=== PATIENT | male | born 1990 | race Caucasian/White ===

== ENCOUNTER 2017-07-21 08:16 | Emergency (ER) | payer OTHER ==
[2017-07-21] MEDS ORDERED: FENTANYL CITR 100 MCG/2 ML ONE (09:49)
[2017-07-21] MEDS ORDERED: PROMETHAZINE 25 MG/ML VIAL ONE (09:49)
[2017-07-21 10:09] LABS: Absolute Lymphocytes (CBC) 1.3 K/uL (0.7-4.9); Absolute Monocytes 0.5 K/uL (0.1-1.3); Absolute Neutrophil 4.3 K/uL (1.8-8.0); Basophils % 0.3 % (0-1.3); Eosinophils % 1.6 % (0-4.4); Hematocrit 47.5 % (39.6-49.0); Lymphocytes % 20.7 % (15.3-44.8); MCH 27.4 pg (27.0-35.0); MCV 84.2 fL (80-100); MPV 9.3 fL (7.6-11.3); Monocytes % 8.3 % (3.3-12.3); RBC Red Blood Cell Count 5.64 M/uL (4.33-5.43)
--- NOTE | 2017-07-21 10:45 | RAD REPORT ---
EXAM DESCRIPTION: CTAbdomen Pelvis W Contrast - 07/21/2017 10:32 am CLINICAL HISTORY: Abdominal pain. COMPARISON: None. TECHNIQUE: Biphasic CT imaging of the abdomen and pelvis was performed with 100 ml non-ionic IV cont rast. All CT scans are performed using dose optimization technique as appropriate and may include automated exposure control or mA/KV adjustment according to patient size. FINDINGS: The lung bases are clear. The liver, spleen, pancreas, adrenal glands are within normal limits. 4 mm stone (615 HU) is present in the proximal left ureter resulting in mild left hydronephrosis. Additional calculus is present inf erior calyx left kidney measuring 3 mm. Small calculus is present mid-pole right renal calyx measurin g 2 mm. No right-sided hydronephrosis. No bowel obstruction, free air, free fluid or abscess. The appendix is normal. No evidence of signi ficant lymphadenopathy. No suspicious bony findings. IMPRESSION: 4 mm calculus (615 HU) proximal left ureter resulting in mild left hydronephrosis. Additional bilateral nephrolithiasis as detailed.
[2017-07-21] MEDS ORDERED: KETOROLAC 30 MG/ML INJ ONE (11:11)
[2017-07-21 11:13] LABS: Potassium 4.3 mEq/L (3.6-5.0)
[2017-07-21 11:19] LABS: Albumin 4.6 g/dL (3.2-5.5); Bilirubin Direct 0.1 mg/dL (0-0.2); Bilirubin Total 0.7 mg/dL (0.3-1.2); Protein, Total 7.7 g/dL (6.0-8.3)
--- NOTE | 2017-07-21 11:25 | ER ---
Nurse's Notes [facility] Name: Paul Patel Age: 26 yrs Sex: Male : 1990 Arrival Date: 07/21/2017 Time: 08:19 Bed 16 Private MD: None, None Diagnosis: Hydronephrosis with renal and ureteral calculous obstruction Presentation: 07/21 08:40 Presenting complaint: Patient states: pain in mid abd, radiates to LLQ to left groin, iw sharp, constant X 2 days, c/o nausea, denies vomiting or diarrhea. Transition of care: patient was not received from another setting of care. Onset of symptoms was July 19, 2017. Initial Sepsis Screen: Does the patient meet any 2 criteria? No. Patient's initial sepsis screen is negative. Does the patient have a suspected source of infection? No. Patient's initial sepsis screen is negative. Care prior to arrival: None. 08:40 Method Of Arrival: Ambulatory iw 08:40 Acuity: LOWELL 3 iw Triage Assessment: 10:28 General: Appears in no apparent distress. comfortable, Behavior is calm, cooperative. em Pain: Complains of pain in left lower quadrant Pain currently is 10 out of 10 on a pain scale. Quality of pain is described as sharp. GI: Abdomen is flat. Historical: - Allergies: 08:41 Morphine; aggressivness; iw - Home Meds: 08:41 None [Active]; iw - PMHx: 08:41 Back pain; Chronic pain; Hypertension; scoliosis; iw - PSHx: 08:41 Cholecystectomy; iw - Immunization history:: Adult Immunizations not up to date. - Social history:: Smoking status: Patient uses tobacco products, chewing tobacco. Screenin:27 Abuse screen: Denies threats or abuse. Nutritional screening: No deficits noted. em Tuberculosis screening: No symptoms or risk factors identified. Fall Risk None identified. Assessment: 09:30 General: Appears in no apparent distress. uncomfortable, Behavior is calm, cooperative. em Pain: Complains of pain in left lower quadrant. Neuro: Level of Consciousness is awake, alert, obeys commands, Oriented to person, place, time, situation, Appropriate for age. Cardiovascular: Capillary refill < 3 seconds Patient's skin is warm and dry. Respiratory: Airway is patent Respiratory effort is even, unlabored, Respiratory pattern is regular, symmetrical. GI: Abdomen is flat, Bowel sounds present X 4 quads. Abd is soft X 4 quads Abdomen is tender to palpation in left lower quadrant Reports nausea, Patient currently denies diarrhea, vomiting. : No signs and/or symptoms were reported regarding the genitourinary system. EENT: No signs and/or symptoms were reported regarding the EENT system. Derm: Skin is intact, Skin is pink, warm \T\ dry. Musculoskeletal: Range of motion: intact in all extremities. 09:45 Reassessment: Patient appears in no apparent distress at this time. I agree with above iw assessment by Chavez Krueger LVN. 10:25 Reassessment: Patient appears in no apparent distress at this time. Patient and/or em family updated on plan of care and expected duration. Pain level reassessed. Patient is alert, oriented x 3, equal unlabored respirations, skin warm/dry/pink. 11:24 Reassessment: Patient appears in no apparent distress at this time. Patient and/or em family updated on plan of care and expected duration. Pain level reassessed. Patient is alert, oriented x 3, equal unlabored respirations, skin warm/dry/pink. Vital Signs: 08:41 BP 132 / 81; Pulse 76; Resp 16; Temp 98.4(TE); Pulse Ox 97% on R/A; Weight 84.37 kg; iw Height 5 ft. 7 in. (170.18 cm); Pain 9/10; 09:40 BP 135 / 86; Pulse 79; Resp 17; Pulse Ox 98% on R/A; dh3 10:45 BP 116 / 74; Pulse 57; Resp 16; Pulse Ox 98% on R/A; dh3 11:30 BP 120 / 78; Pulse 69; Resp 14; Pulse Ox 99% on R/A; Pain 7/10; em 08:41 Body Mass Index 29.13 (84.37 kg, 170.18 cm) iw ED Course: 08:19 Patient arrived in ED. mr 08:19 None, None is Private Physician. mr 08:38 Ketty Keane, RN is Primary Nurse. iw 08:38 Koffi Layton PA is PHCP. jr8 08:41 Triage completed. iw 08:41 Arm band placed on. iw 08:54 Koffi Layton PA is PHCP. jr8 08:54 Beck, Galindo, MD is Attending Physician. jr8 09:30 Patient has correct armband on for positive identification. Placed in gown. Bed in low em position. Call light in reach. Side rails up X2. 09:54 Radiology exam delayed due to lab results not completed at this time. (BUN/Creatinine). vr 10:00 No provider procedures requiring assistance completed. Initial lab(s) drawn, by me, em sent to lab. Inserted saline lock: 20 gauge in right antecubital area, using aseptic technique. Blood collected. 10:32 CT Abd/Pelvis - W/Contrast In Process Unspecified. EDMS 11:24 Samm Del Cid MD is Referral Physician. jr8 12:22 IV discontinued, intact, bleeding controlled, No redness/swelling at site. Pressure em dressing applied. Administered Medications: 09:59 Drug: fentaNYL (PF) 25 mcg Route: IVP; Site: right antecubital; iw 11:00 Follow up: Response: No adverse reaction em 09:59 Drug: Phenergan 12.5 mg Route: IVP; Site: right antecubital; iw 11:00 Follow up: Response: No adverse reaction; Nausea is decreased em 11:10 Drug: TORadol 30 mg Route: IVP; Site: right antecubital; iw 12:00 Follow up: Response: No adverse reaction; Pain is decreased em Outcome: 11:24 Discharge ordered by . jr8 12:22 Discharged to home ambulatory. em 12:22 Condition: good 12:22 Discharge instructions given to patient, Instructed on discharge instructions, follow up and referral plans. medication usage, Demonstrated understanding of instructions, follow-up care, medications, Prescriptions given X 4. 12:22 Patient left the ED. em Signatures: Dispatcher [employer] EDCT Lynnette Rodriguezoz, Chavez, CARDROOM ATTENDANT CARDROOM ATTENDANT em Ketty Keane, MANISHA RN Irene Harris vr Koffi Layton PA PA jr8 Cintia Pena [facility]
--- NOTE | 2017-07-21 11:26 | EDPHYS ---
Physician Documentation [facility] Name: Paul Patel Age: 26 yrs Sex: Male : 1990 Arrival Date: 07/21/2017 Time: 08:19 Bed 16 Private MD: None, None ED Physician Galindo Solares HPI: 07/21 10:58 This 26 yrs old Male presents to ER via Ambulatory with complaints of jr8 Abdominal Pain. 10:58 The patient complains of pain in the left flank. The pain does not radiate. Onset: The jr8 symptoms/episode began/occurred acutely, today. Modifying factors: The symptoms are alleviated by nothing. the symptoms are aggravated by nothing. Associated signs and symptoms: The patient has no apparent associated signs or symptoms. Severity of pain: At its worst the pain was moderate in the emergency department the pain is unchanged. The patient has experienced a previous episode. The patient has not recently seen a physician. Historical: - Allergies: 08:41 Morphine; aggressivness; iw - Home Meds: 08:41 None [Active]; iw - PMHx: 08:41 Back pain; Chronic pain; Hypertension; scoliosis; iw - PSHx: 08:41 Cholecystectomy; iw - Immunization history:: Adult Immunizations not up to date. - Social history:: Smoking status: Patient uses tobacco products, chewing tobacco. ROS: 10:58 Eyes: Negative for injury, pain, redness, and discharge, ENT: Negative for injury, jr8 pain, and discharge, Neck: Negative for injury, pain, and swelling, Cardiovascular: Negative for chest pain, palpitations, and edema, Respiratory: Negative for shortness of breath, cough, wheezing, and pleuritic chest pain, Abdomen/GI: Negative for abdominal pain, nausea, vomiting, diarrhea, and constipation, MS/Extremity: Negative for injury and deformity, Skin: Negative for injury, rash, and discoloration, Neuro: Negative for headache, weakness, numbness, tingling, and seizure. 10:58 Back: Positive for flank pain, on the left. Exam: 10:58 Eyes: Pupils equal round and reactive to light, extra-ocular motions intact. Lids and jr8 lashes normal. Conjunctiva and sclera are non-icteric and not injected. Cornea within normal limits. Periorbital areas with no swelling, redness, or edema. ENT: Nares patent. No nasal discharge, no septal abnormalities noted. Tympanic membranes are normal and external auditory canals are clear. Oropharynx with no redness, swelling, or masses, exudates, or evidence of obstruction, uvula midline. Mucous membranes moist. Neck: Trachea midline, no thyromegaly or masses palpated, and no cervical lymphadenopathy. Supple, full range of motion without nuchal rigidity, or vertebral point tenderness. No Meningismus. Cardiovascular: Regular rate and rhythm with a normal S1 and S2. No gallops, murmurs, or rubs. Normal PMI, no JVD. No pulse deficits. Respiratory: Lungs have equal breath sounds bilaterally, clear to auscultation and percussion. No rales, rhonchi or wheezes noted. No increased work of breathing, no retractions or nasal flaring. Abdomen/GI: Soft, non-tender, with normal bowel sounds. No distension or tympany. No guarding or rebound. No evidence of tenderness throughout. Skin: Warm, dry with normal turgor. Normal color with no rashes, no lesions, and no evidence of cellulitis. MS/ Extremity: Pulses equal, no cyanosis. Neurovascular intact. Full, normal range of motion. Neuro: Awake and alert, GCS 15, oriented to person, place, time, and situation. Cranial nerves II-XII grossly intact. Motor strength 5/5 in all extremities. Sensory grossly intact. Cerebellar exam normal. Normal gait. 10:58 Back: pain, that is moderate, of the left flank, ROM is normal, normal spinal alignment noted, CVA tenderness, is absent, muscle spasm, is not present. Vital Signs: 08:41 BP 132 / 81; Pulse 76; Resp 16; Temp 98.4(TE); Pulse Ox 97% on R/A; Weight 84.37 kg; iw Height 5 ft. 7 in. (170.18 cm); Pain 9/10; 09:40 BP 135 / 86; Pulse 79; Resp 17; Pulse Ox 98% on R/A; dh3 10:45 BP 116 / 74; Pulse 57; Resp 16; Pulse Ox 98% on R/A; dh3 11:30 BP 120 / 78; Pulse 69; Resp 14; Pulse Ox 99% on R/A; Pain 7/10; em 08:41 Body Mass Index 29.13 (84.37 kg, 170.18 cm) iw MDM: 08:54 Patient medically screened. jr8 11:23 Data reviewed: vital signs, nurses notes, lab test result(s), radiologic studies, CT jr8 scan, and as a result, I will discharge patient. Data interpreted: Pulse oximetry: on room air is 98 %. Interpretation: normal. Counseling: I had a detailed discussion with the patient and/or guardian regarding: the historical points, exam findings, and any diagnostic results supporting the discharge/admit diagnosis, lab results, radiology results, the need for outpatient follow up, a urologist, to return to the emergency department if symptoms worsen or persist or if there are any questions or concerns that arise at home. 07/21 09:16 Order name: Basic Metabolic Panel [facility] 07/21 09:16 Order name: CBC with Diff [facility] 07/21 09:16 Order name: Creatinine for Radiology; Complete Time: 10:29 [facility] 07/21 09:16 Order name: Hepatic Function [facility] 07/21 09:16 Order name: Lipase [facility] 07/21 09:16 Order name: Basic Metabolic Panel; Complete Time: 11:21 EDMS 07/21 09:16 Order name: CT Abd/Pelvis - W/Contrast; Complete Time: 10:48 [facility] 07/21 09:16 Order name: CBC with Automated Diff; Complete Time: 10:29 EDMS 07/21 09:16 Order name: Liver (Hepatic) Function; Complete Time: 11:21 EDMS 07/21 09:16 Order name: Lipase; Complete Time: 11:21 EDMS 07/21 09:16 Order name: IV Saline Lock; Complete Time: 10:08 8 07/21 09:16 Order name: Labs collected and sent; Complete Time: 10:07 [facility] Administered Medications: 09:59 Drug: fentaNYL (PF) 25 mcg Route: IVP; Site: right antecubital; iw 11:00 Follow up: Response: No adverse reaction em 09:59 Drug: Phenergan 12.5 mg Route: IVP; Site: right antecubital; iw 11:00 Follow up: Response: No adverse reaction; Nausea is decreased em 11:10 Drug: TORadol 30 mg Route: IVP; Site: right antecubital; iw 12:00 Follow up: Response: No adverse reaction; Pain is decreased em Disposition: 07/22 07:07 Co-signature as Attending Physician, Galindo Solares MD I agree with the assessment and wa plan of care. Disposition: 07/21/17 11:24 Discharged to Home. Impression: Hydronephrosis with renal and ureteral calculous obstruction. - Condition is Stable. - Discharge Instructions: Kidney Stones, Hydronephrosis. - Prescriptions for Ibuprofen 800 mg Oral Tablet - take 1 tablet by ORAL route every 12 hours As needed take with food; 20 tablet. Tylenol- Codeine #3 300-30 mg Oral Tablet - take 2 tablet by ORAL route every 6 hours As needed; 30 tablet. Zofran 4 mg Oral Tablet - take 1 tablet by ORAL route every 12 hours As needed; 20 tablet. Flomax 0.4 mg Oral Capsule, Sust. Release 24 hr - take 1 capsule by ORAL route once daily 1/2 hour following the same meal each day; 30 capsule. - Work release form, Medication Reconciliation Form, Thank You Letter, Antibiotic Education, Prescription Opioid Use form. - Follow up: Samm Del Cid MD; When: 2 - 3 days; Reason: Recheck today's complaints, Continuance of care, Re-evaluation by your physician. - Problem is new. - Symptoms have improved. Signatures: Dispatcher [employer] [facility] Chavez Krueger, SPRAY PAINTING MACHINE OPERATOR SPRAY PAINTING MACHINE OPERATOR em Ketty Keane RN RN iw Koffi Layton PA PA jr8 Galindo Solares MD MD co Corrections: (The following items were deleted from the chart) 07/21 10:38 10:29 Abdomen Pelvis W Con+CT.RAD.BRZ ordered. [facility] 12:21 09:16 Urine Dipstick-Ancillary ordered. jr8 em 12:22 11:24 07/21/2017 11:24 Discharged to Home. Impression: Hydronephrosis with renal and em ureteral calculous obstruction. Condition is Stable. Forms are Medication Reconciliation Form, Thank You Letter, Antibiotic Education, Prescription Opioid Use. Follow up: Samm Del Cid; When: 2 - 3 days; Reason: Recheck today's complaints, Continuance of care, Re-evaluation by your physician. Problem is new. Symptoms have improved. jr8
== END 2017-07-21 12:22 | disposition home or self-care (01) ==
LOC: ER 08:16
DX: N13.2 Hydronephrosis with renal and ureteral calculous obstruction (principal); I10 Essential (primary) hypertension; Z72.0 Tobacco use; Z88.5 Allergy status to narcotic agent
CPT/HCPCS: 36415; 74177; 80048; 80076; 83690; 85025; 96374; 96375; 99284; J2550; J3010; Q9967

== ENCOUNTER 2017-07-31 21:21 | Emergency (ER) | payer OTHER ==
[2017-07-31 22:07] LABS: Urine Blood 2+ (NEG); Urine Glucose NEGATIVE (NEG); Urine Protein TRACE (NEG); Urine Specific Gravity 1.025 (1.005-1.030); Urine pH 5.5 (5.0-7.0)
[2017-07-31] MEDS ORDERED: NA CHLORIDE 0.9% 1,000 ML ONE (22:11)
[2017-07-31 22:14] LABS: Absolute Lymphocytes (CBC) 1.2 K/uL (0.7-4.9); Absolute Monocytes 0.8 K/uL (0.1-1.3); Absolute Neutrophil 8.5 K/uL (1.8-8.0); Basophils % 0.2 % (0-1.3); Eosinophils % 1.5 % (0-4.4); Hematocrit 44.8 % (39.6-49.0); Lymphocytes % 10.8 % (15.3-44.8); MCH 28.3 pg (27.0-35.0); MCV 83.9 fL (80-100); MPV 9.5 fL (7.6-11.3); Monocytes % 7.1 % (3.3-12.3); RBC Red Blood Cell Count 5.34 M/uL (4.33-5.43)
[2017-07-31 22:26] LABS: Barbiturates NEGATIVE; Benzodiazepines NEGATIVE; Cocaine NEGATIVE; METHAMPHETAM NEGATIVE; Opiates NEGATIVE; Phencyclidine NEGATIVE; THC Cannibis NEGATIVE
[2017-07-31 22:27] LABS: Potassium 3.7 mEq/L (3.6-5.0)
[2017-07-31 22:33] LABS: Albumin 4.6 g/dL (3.2-5.5); Bilirubin Direct 0.1 mg/dL (0-0.2); Bilirubin Total 0.7 mg/dL (0.3-1.2); Protein, Total 7.6 g/dL (6.0-8.3)
[2017-07-31 23:23] LABS: Urine Mucus 2+ /HPF (NONE SEEN)
[2017-07-31 23:25] LABS: Urine Bacteria <20 /HPF (NONE SEEN); Urine Culture Reflex Order NOT NEEDED
--- NOTE | 2017-08-01 02:38 | EDPHYS ---
Physician Documentation [facility] Name: Paul Patel Age: 26 yrs Sex: Male : 1990 Arrival Date: 07/31/2017 Time: 21:23 Bed 16 Private MD: ED Physician Bill Hernandez HPI: 08/01 00:35 This 26 yrs old Male presents to ER via Ambulatory with complaints of General tw4 Weakness, Nausea, Flank Pain, Urinary Frequency. 00:35 The patient presents to the emergency department with nausea, with "dry heaves", tw4 vomiting, diarrhea, 10 times since the onset of symptoms. Onset: The symptoms/episode began/occurred yesterday. Possible causes: unknown. The symptoms are aggravated by nothing. The symptoms are alleviated by nothing. Severity of symptoms: At their worst the symptoms were moderate in the emergency department the symptoms are unchanged. The patient has not experienced similar symptoms in the past. Historical: - Allergies: 07/31 21:31 Morphine; aggressivness; la1 - PMHx: 21:31 Back pain; Chronic pain; Hypertension; scoliosis; la1 - Immunization history:: Adult Immunizations. - Social history:: Smoking status: Patient/guardian denies using tobacco. ROS: 08/01 00:35 Constitutional: Negative for fever, chills, and weight loss, Cardiovascular: Negative tw4 for chest pain, palpitations, and edema, Respiratory: Negative for shortness of breath, cough, wheezing, and pleuritic chest pain. MS/Extremity: Negative for injury and deformity, Skin: Negative for injury, rash, and discoloration, Neuro: Negative for headache, weakness, numbness, tingling, and seizure. Abdomen/GI: Positive for abdominal pain, nausea and vomiting, nausea, vomiting, and diarrhea, nausea, vomiting, diarrhea, Negative for Exam: 00:35 Constitutional: This is a well developed, well nourished patient who is awake, alert, tw4 and in no acute distress. Head/Face: Normocephalic, atraumatic. Chest/axilla: Normal chest wall appearance and motion. Nontender with no deformity. No lesions are appreciated. Cardiovascular: Regular rate and rhythm with a normal S1 and S2. No gallops, murmurs, or rubs. Normal PMI, no JVD. No pulse deficits. Respiratory: Lungs have equal breath sounds bilaterally, clear to auscultation and percussion. No rales, rhonchi or wheezes noted. No increased work of breathing, no retractions or nasal flaring. Abdomen/GI: Soft, non-tender, with normal bowel sounds. No distension or tympany. No guarding or rebound. No evidence of tenderness throughout. MS/ Extremity: Pulses equal, no cyanosis. Neurovascular intact. Full, normal range of motion. Neuro: Awake and alert, GCS 15, oriented to person, place, time, and situation. Cranial nerves II-XII grossly intact. Motor strength 5/5 in all extremities. Sensory grossly intact. Cerebellar exam normal. Normal gait. Vital Signs: 07/31 21:31 BP 140 / 78; Pulse 108; Resp 19; Temp 98.4(TE); Pulse Ox 100% on R/A; Weight 81.65 kg; la1 Height 5 ft. 7 in. (170.18 cm); 22:15 BP 123 / 74; Pulse 94; Resp 16; Pulse Ox 97% ; bp 08/01 00:30 BP 116 / 77; Pulse 71; Resp 16; Pulse Ox 97% ; bp 07/31 21:31 Body Mass Index 28.19 (81.65 kg, 170.18 cm) la1 MDM: 07/31 21:42 Patient medically screened. tw4 08/01 05:46 Data reviewed: vital signs, nurses notes. Test interpretation: by ED physician or tw4 midlevel provider: ECG. Counseling: I had a detailed discussion with the patient and/or guardian regarding: the historical points, exam findings, and any diagnostic results supporting the discharge/admit diagnosis, lab results, radiology results. Response to treatment: the patient's symptoms have markedly improved after treatment, and as a result, I will discharge patient. Special discussion: Based on the patient's Hx, exam, and Dx evaluation, there is no indication for emergent surgery or inpatient Tx. It is understood by the patient/guardian that if the Sx's persist or worsen they need to return immediately for re-evaluation. I discussed with the patient/guardian in detail that at this point there is no indication for admission to the hospital. It is understood, however, that if the symptoms persist or worsen the patient needs to return immediately for re-evaluation. 05:47 Differential diagnosis: Nonspecific abd pain, gastritis, cholecystitis, pancreatitis, tw4 appendicitis, diverticulitis, viral gastroenteritis. 07/31 21:54 Order name: Amylase, Serum [facility] 07/31 21:54 Order name: Basic Metabolic Panel [facility] 07/31 21:54 Order name: CBC with Diff; Complete Time: 23:35 [facility] 07/31 23:35 Interpretation: Normal except: WBC 10.6; PETER% 80.4; LYM% 10.8; NEUT A 8.5. [facility] 07/31 21:54 Order name: Creatinine for Radiology; Complete Time: 23:35 [facility] 07/31 21:54 Order name: Hepatic Function; Complete Time: 23:35 [facility] 07/31 21:54 Order name: Lipase; Complete Time: 23:35 [facility] 07/31 23:35 Interpretation: Normal except: LIP 21. [facility] 07/31 21:54 Order name: Urine Microscopic Only; Complete Time: 23:35 [facility] 07/31 23:35 Interpretation: Abnormal: URBC 5-10. [facility] 07/31 21:55 Order name: Amylase Level; Complete Time: 23:35 [facility] 07/31 21:55 Order name: Basic Metabolic Panel; Complete Time: 23:35 [facility] 07/31 23:35 Interpretation: Within normal limits. [facility] 07/31 21:58 Order name: Urine Dipstick--Ancillary (enter results); Complete Time: 23:35 [facility] 07/31 22:06 Order name: Urine Drug Screen; Complete Time: 23:35 [facility] 08/01 00:37 Order name: Stone Protocol [facility] 07/31 21:54 Order name: IV Saline Lock; Complete Time: 22:07 [facility] 07/31 21:54 Order name: Labs collected and sent; Complete Time: 22:07 [facility] 07/31 21:54 Order name: Urine Dipstick-Ancillary (obtain specimen); Complete Time: 22:00 [facility] Administered Medications: 07/31 22:15 Drug: NS 0.9% 1000 ml Route: IV; Rate: 1 bolus; Site: right antecubital; bp Disposition: 08/01/17 02:37 Discharged to Home. Impression: Calculus of ureter. - Condition is Stable. - Discharge Instructions: Food Choices to Help Relieve Diarrhea, Adult, Ureteral Colic, Kidney Stones, [id number], Diarrhea, [id number]. - Prescriptions for Ibuprofen 800 mg Oral Tablet - take 1 tablet by ORAL route every 12 hours As needed take with food; 20 tablet. Lomotil 2.5- 0.025 mg Oral Tablet - take 1 tablet by ORAL route every 6 hours As needed; 20 tablet. - Medication Reconciliation Form, Thank You Letter, Antibiotic Education, Prescription Opioid Use form. - Follow up: Samm Del Cid MD; When: Upon discharge from the Emergency Department; Reason: Recheck today's complaints, Continuance of care, Re-evaluation by your physician. - Problem is new. - Symptoms have improved. Signatures: Dispatcher [employer] EDMO Catrachita Llanes RN RN aa1 Alex Montes RN RN la1 Bruce Lam RN RN Bill Valles MD MD tw4 Corrections: (The following items were deleted from the chart) 23:36 23:36 Abnormal. tw4 tw4 08/01 00:37 00:21 Abdomen Pelvis Wo Con+CT.RAD.BRZ ordered. [facility] EDMO 03:01 02:37 08/01/2017 02:37 Discharged to Home. Impression: Calculus of ureter. Condition is aa1 Stable. Forms are Medication Reconciliation Form, Thank You Letter, Antibiotic Education, Prescription Opioid Use. Follow up: Samm Del Cid; When: Upon discharge from the Emergency Department; Reason: Recheck today's complaints, Continuance of care, Re-evaluation by your physician. Problem is new. Symptoms have improved. tw4
--- NOTE | 2017-08-01 02:38 | ER ---
Nurse's Notes [facility] Name: Paul Patel Age: 26 yrs Sex: Male : 1990 Arrival Date: 07/31/2017 Time: 21:23 Bed 16 Private MD: Diagnosis: Calculus of ureter Presentation: 07/31 21:29 Presenting complaint: Patient states: I was told I have a kidney stone last week but I la1 am having lower back pain, fatigue, SOB, have been peeing a lot, decreased appetite and I have been dizzy. Transition of care: patient was not received from another setting of care. Onset of symptoms was July 31, 2017. Initial Sepsis Screen: Does the patient meet any 2 criteria? No. Patient's initial sepsis screen is negative. Does the patient have a suspected source of infection? No. Patient's initial sepsis screen is negative. Care prior to arrival: None. 21:29 Method Of Arrival: Ambulatory la1 21:29 Acuity: LOWELL 3 la1 Historical: - Allergies: 21:31 Morphine; aggressivness; la1 - PMHx: 21:31 Back pain; Chronic pain; Hypertension; scoliosis; la1 - Immunization history:: Adult Immunizations. - Social history:: Smoking status: Patient/guardian denies using tobacco. Screenin:45 Abuse screen: Denies threats or abuse. Denies injuries from another. Nutritional bp screening: No deficits noted. Tuberculosis screening: No symptoms or risk factors identified. Fall Risk None identified. Assessment: 21:42 General: Appears in no apparent distress. comfortable, Behavior is calm, cooperative, bp appropriate for age. 21:43 Pain: Complains of pain in low back area. Neuro: Level of Consciousness is awake, bp alert, obeys commands, Oriented to person, place, time, situation, Appropriate for age. Cardiovascular: No deficits noted. Respiratory: Airway is patent Respiratory effort is even, unlabored, Respiratory pattern is regular, symmetrical. GI: Abdomen is non-distended, Reports nausea. : No deficits noted. EENT: No deficits noted. Derm: No deficits noted. Musculoskeletal: Circulation, motion, and sensation intact. Range of motion: intact in all extremities. 22:15 Reassessment: DURING MD FERRERA, PT CHANGED CC TO DIZZINESS, CONFUSION AND FATIGUE. LABS bp IN PROCESS. 08/01 00:30 Reassessment: PT SLEEPING QUIETLY, VS STABLE. ALL CURRENT ORDERS COMPLETED. bp 01:09 Reassessment: PT RETURNED FROM CT. ALL CURRENT ORDERS COMPLETED, CT RESULTS PENDING. bp 02:59 Reassessment: Patient appears in no apparent distress at this time. Patient is alert, aa1 oriented x 3, equal unlabored respirations, skin warm/dry/pink. Discussed d/c \T\ f/u instructions with pt; denies questions or concerns at this time Patient states feeling better. Vital Signs: 07/31 21:31 BP 140 / 78; Pulse 108; Resp 19; Temp 98.4(TE); Pulse Ox 100% on R/A; Weight 81.65 kg; la1 Height 5 ft. 7 in. (170.18 cm); 22:15 BP 123 / 74; Pulse 94; Resp 16; Pulse Ox 97% ; bp 08/01 00:30 BP 116 / 77; Pulse 71; Resp 16; Pulse Ox 97% ; bp 07/31 21:31 Body Mass Index 28.19 (81.65 kg, 170.18 cm) la1 ED Course: 07/31 21:23 Patient arrived in ED. am2 21:30 Triage completed. la1 21:31 Arm band placed on right wrist. la1 21:32 Catrachita Llanes, RN is Primary Nurse. aa1 21:42 Bill Hernandez MD is Attending Physician. tw4 21:45 Patient has correct armband on for positive identification. Bed in low position. Call bp light in reach. Side rails up X2. 21:50 Primary Nurse role handed off by Catrachita Llanes, MANISHA bp 21:50 Bruce Lam, MANISHA is Primary Nurse. bp 22:08 Inserted saline lock: 18 gauge in right antecubital area, using aseptic technique. bp Blood collected. 08/01 01:06 Stone Protocol In Process Unspecified. EDMS 01:06 Amylase, Serum Sent. bp 01:06 Basic Metabolic Panel Sent. bp 01:56 CT completed. Patient tolerated procedure well. Patient moved to CT via wheelchair. Patient moved back from CT. 02:34 Samm Del Cid MD is Referral Physician. tw4 02:59 No provider procedures requiring assistance completed. IV discontinued, intact, aa1 bleeding controlled, No redness/swelling at site. Pressure dressing applied. Administered Medications: 07/31 22:15 Drug: NS 0.9% 1000 ml Route: IV; Rate: 1 bolus; Site: right antecubital; bp Outcome: 08/01 02:37 Discharge ordered by . tw4 02:59 Discharged to home ambulatory. aa1 02:59 Condition: good 02:59 Discharge instructions given to patient, Instructed on discharge instructions, follow up and referral plans. medication usage, Demonstrated understanding of instructions, follow-up care, medications, Prescriptions given X 2. 03:01 Patient left the ED. aa1 Signatures: Dispatcher [employer] EDMS Catrachita Llanes RN RN aa1 Naun Vasquez Lee RN RN la1 Trixie Yin amBruce Prather RN RN Bill Valles MD MD tw4
--- NOTE | 2017-08-01 08:32 | RAD REPORT ---
EXAM DESCRIPTION: CT - Stone Protocol - 08/01/2017 3:41 am CLINICAL HISTORY: Flank pain. COMPARISON: 07/21/2017 TECHNIQUE: Axial images were obtained without oral or IV contrast. Lack of contrast limits solid org an and vascular assessment. The [id number] spans the entirety of the system partially obscuring uppermost abdomen and lung bases. Coronal reformatted images were obtained and reviewed. All CT scans are performed using dose optimization technique as appropriate and may include automated exposure control or mA/KV adjustment according to patient size. FINDINGS: The lower lung crespo are clear. Imaged portions of the liver and spleen show no suspicious findings on non-contrast imaging. The panc reas and adrenal glands are normal. No pathologic lymphadenopathy in the abdomen or pelvis. 5 mm proximal left ureter stone (900 HU) is again noted in the proximal left ureter resulting in mild left hydronephrosis. The findings appear essentially stable since the comparative study. Additional bilateral nephrolithiasis is seen, measuring 3 mm in the inferior calyx of the left kidney and 2 mm i n the mid-pole right kidney. No right-sided hydronephrosis. No bowel obstruction, free air, free fluid or abscess. Normal appendix noted. No significant bony abnormality. IMPRESSION: 5 mm proximal left ureter stone with mild left hydronephrosis. Findings are essentially stable since the comparative CT. Bilateral nephrolithiasis.
== END 2017-08-01 03:01 | disposition home or self-care (01) ==
LOC: ER 21:21
DX: N20.1 Calculus of ureter (principal); I10 Essential (primary) hypertension; Z88.5 Allergy status to narcotic agent
CPT/HCPCS: 36415; 74176; 76377; 80048; 80076; 80307; 81003; 81015; 82150; 83690; 85025; 99284; J7030

== ENCOUNTER 2017-09-03 01:17 | Emergency (ER) | payer OTHER ==
[2017-09-03] MEDS ORDERED: KETOROLAC 30 MG/ML INJ ONE (01:37)
[2017-09-03] MEDS ORDERED: ONDANSETRON 4 MG/2 ML VIAL ONE (01:38)
[2017-09-03 02:03] LABS: Glucose Level 140 mg/dL (65-120); Lipase 22 U/L (22-51)
[2017-09-03 02:08] LABS: Absolute Lymphocytes (CBC) 1.8 K/uL (0.7-4.9); Absolute Monocytes 0.8 K/uL (0.1-1.3); Absolute Neutrophil 8.7 K/uL (1.8-8.0); Basophils % 0.2 % (0-1.3); Eosinophils % 0.7 % (0-4.4); Hematocrit 40.2 % (39.6-49.0); MCV 82.1 fL (80-100); MPV 8.9 fL (7.6-11.3); Monocytes % 6.6 % (3.3-12.3)
[2017-09-03 02:09] LABS: ALT/SGPT 35 IU/L (10-60); AST/SGOT 27 IU/L (10-42); Albumin 4.2 g/dL (3.2-5.5); Alkaline Phosphatase 88 IU/L (42-121); Amylase Level 43 U/L (28-100); BUN Blood Urea Nitrogen 7 mg/dL (6-20); Bilirubin Direct < 0.1 mg/dL (0-0.2); Bilirubin Total 0.5 mg/dL (0.3-1.2); Protein, Total 7.3 g/dL (6.0-8.3)
[2017-09-03 02:11] LABS: Bicarbonate 29 mEq/L (21-31); Sodium Level 139 mEq/L (135-145)
[2017-09-03 02:12] LABS: Potassium 2.9 mEq/L (3.6-5.0)
[2017-09-03] MEDS ORDERED: NA CHLORIDE 0.9% 250 ML ONE (02:26)
[2017-09-03] MEDS ORDERED: KCL 20 MEQ/100 mL IVPB 20 MEQ/100 ML BAG IV ONE (02:26)
--- NOTE | 2017-09-03 04:06 | ER ---
Nurse's Notes [facility] Name: Paul Patel Age: 26 yrs Sex: Male : 1990 Arrival Date: 09/03/2017 Time: 01:21 Bed 15 Private MD: Diagnosis: Acute Right Flank Pain;Right Ureteral Colic;Hypokalemia Presentation: 09/03 01:21 Presenting complaint: Patient states: Abdominal pain for about 2 hours, more severe in tl2 RLQ that radiates to testicles. Reports nausea, denies vomiting. Transition of care: patient was not received from another setting of care. Onset of symptoms was September 02, 2017 at 23:00. Risk Assessment: Do you want to hurt yourself or someone else? Patient reports no desire to harm self or others. Initial Sepsis Screen: Does the patient meet any 2 criteria? No. Patient's initial sepsis screen is negative. Does the patient have a suspected source of infection? No. Patient's initial sepsis screen is negative. Care prior to arrival: None. 01:21 Method Of Arrival: EMS: [facility] tl2 :21 Acuity: LOWELL 3 tl2 Triage Assessment: :25 General: Appears in no apparent distress. uncomfortable, Behavior is cooperative, tl2 appropriate for age, anxious. Pain: Complains of pain in right lower quadrant Pain radiates to testicles. Neuro: Level of Consciousness is awake, alert, obeys commands, Oriented to person, place, time, situation. Cardiovascular: Denies chest pain. Respiratory: Airway is patent Respiratory effort is even, unlabored, Respiratory pattern is regular, symmetrical. GI: Abd is soft Abdomen is tender to palpation X 4 quads. Historical: - Allergies: 01:25 Morphine; aggressivness; tl2 - Home Meds: :25 None [Active]; tl2 - PMHx: 01:25 Back pain; Chronic pain; Hypertension; scoliosis; Kidney stones; tl2 - Immunization history:: Adult Immunizations up to date. - Social history:: Smoking status: Patient uses tobacco products, chewing tobacco. - Ebola Screening: : No symptoms or risks identified at this time. Screenin:27 Abuse screen: Denies threats or abuse. Nutritional screening: No deficits noted. tl2 Tuberculosis screening: No symptoms or risk factors identified. Fall Risk None identified. Assessment: 01:30 General: Appears uncomfortable, unkempt, Behavior is anxious, restless. Pain: Complains cr4 of pain in right lower quadrant Pain does not radiate. Pain currently is 8 out of 10 on a pain scale. Quality of pain is described as crampy, sharp, Pain began 30 min ago. Is intermittent. Neuro: Level of Consciousness is Oriented to person, place, time, Derrick Boat Leverman are equal bilaterally Moves all extremities. Denies weakness blurred vision dizziness, difficulty swallowing, numbness headache. Cardiovascular: Denies chest pain, fatigue, lightheadedness, shortness of breath, Heart tones S1 S2 Capillary refill < 3 seconds Pulses are all present. Rhythm is regular. Respiratory: Airway is patent Respiratory effort is even, unlabored, Respiratory pattern is regular, Breath sounds are clear bilaterally. GI: Bowel sounds present X 4 quads. Abdomen is tender to palpation in right lower quadrant Guarding noted in right lower quadrant Reports lower abdominal pain, diarrhea, nausea, vomiting, Patient currently denies bloody stool, rectal bleeding. : Denies burning with urination, cramping discharge, incontinence, urinary frequency. EENT: No signs and/or symptoms were reported regarding the EENT system. Derm: No deficits noted. Musculoskeletal: No deficits noted. 02:45 Reassessment: No changes from previously documented assessment. Patient and/or family cr4 updated on plan of care and expected duration. Pain level reassessed. Patient is alert, oriented x 3, equal unlabored respirations, skin warm/dry/pink. 03:23 Reassessment: patient with eyes closed breathing regular.. cr4 Vital Signs: 01:25 BP 147 / 78; Pulse 85; Resp 18; Temp 97.6(O); Pulse Ox 100% on R/A; Weight 84.37 kg; tl2 Height 5 ft. 6 in. (167.64 cm); Pain 8/10; 02:39 BP 123 / 99; Pulse 74; Resp 15; Pulse Ox 99% on R/A; tl2 03:15 BP 125 / 65; Pulse 68; Resp 16; Pulse Ox 96% ; Pain 0/10; cr4 03:32 BP 132 / 70; Pulse 66; Resp 14; Pulse Ox 96% on R/A; tl2 04:25 BP 138 / 72; Pulse 63; Resp 16; Temp 97.7; Pulse Ox 97% ; Pain 3/10; cr4 01:25 Body Mass Index 30.02 (84.37 kg, 167.64 cm) tl2 ED Course: 01:21 Patient arrived in ED. tl2 01:22 Gallito Pham PA is PHCP. cp 01:22 Galindo Solares MD is Attending Physician. cp 01:24 Triage completed. tl2 01:25 Arm band placed on right wrist. tl2 01:27 Patient has correct armband on for positive identification. Placed in gown. Bed in low tl2 position. Call light in reach. Side rails up X 1. Adult w/ patient. 01:35 Inserted saline lock: 20 gauge in right antecubital area, using aseptic technique. cr4 Blood collected. 02:[address] via wheelchair. kw1 02:20 CT completed. Patient tolerated procedure well. Patient moved back from CT. kw1 02:24 CT Stone Protocol In Process Unspecified. EDMS 02:45 Awaiting radiology results. cr4 02:45 No provider procedures requiring assistance completed. cr4 04:04 Samm Del Cid MD is Referral Physician. wa 04:33 IV discontinued, intact, bleeding controlled, No redness/swelling at site. Pressure cr4 dressing applied. Administered Medications: 01:46 Drug: TORadol 30 mg Route: IVP; Site: right antecubital; cr4 02:30 Follow up: Response: No adverse reaction; Pain is decreased cr4 01:46 Drug: Zofran 4 mg Route: IVP; Site: right antecubital; cr4 02:30 Follow up: Response: No adverse reaction; Nausea is decreased cr4 02:39 Drug: Potassium Chloride 20 mEq Route: IV; Rate: calculated rate; Site: right tl2 antecubital; 04:25 Follow up: Response: No adverse reaction; IV Status: Order to discontinue infusion; IV cr4 Intake: 70ml 04:25 Drug: Potassium Chloride 40 mEq Route: PO; cr4 04:32 Follow up: Response: No adverse reaction cr4 Point of Care Testing: Blood Glucose: 01:25 Blood Glucose: 93 mg/dL; tl2 Ranges: Intake: 04:25 IV: 70ml; Total: 70ml. cr4 Outcome: 04:05 Discharge ordered by . wa 04:33 Discharged to home ambulatory, with family. cr4 04:33 Condition: stable 04:33 Discharge instructions given to patient, Instructed on discharge instructions, follow up and referral plans. medication usage, Demonstrated understanding of instructions, follow-up care, medications, Prescriptions given X 3. 04:36 Patient left the ED. cr4 Signatures: Dispatcher [employer] EDVivien Tate, RN RN cr4 Gallito Pham PA PA cp Knox, Taylor, RN RN tl2 Galindo Solares MD MD nj Krystle Ledesma kw1 Corrections: (The following items were deleted from the chart) 04:37 03:25 BP 138 / 72; Pulse 63bpm; Resp 16bpm; Pulse Ox 97%; Temp 97.7F; Pain 3/10; cr4 cr4
--- NOTE | 2017-09-03 04:06 | EDPHYS ---
Physician Documentation [facility] Name: Paul Patel Age: 26 yrs Sex: Male : 1990 Arrival Date: 09/03/2017 Time: 01:21 Bed 15 Private MD: ED Physician Galindo Solares HPI: 09/03 01:41 This 26 yrs old Male presents to ER via EMS with complaints of Abdominal Pain cp - RLQ. 01:41 The patient presents with abdominal pain right lower quadrant. Onset: The cp symptoms/episode began/occurred suddenly, 2 hour(s) ago. The symptoms radiate to right groin and right testicle. Associated signs and symptoms: Pertinent positives: testicular pain, Pertinent negatives: chest pain, constipation, diarrhea, dysuria, fever. The symptoms are described as constant. 04:01 The patient complains of pain in the right flank. The pain radiates to the right wa testicle. Onset: The symptoms/episode began/occurred just prior to arrival. Modifying factors: The symptoms are alleviated by nothing. the symptoms are aggravated by nothing. Associated signs and symptoms: Pertinent positives: nausea, Pertinent negatives: diarrhea, dysuria, fever, urinary frequency. Severity of pain: At its worst the pain was severe in the emergency department the pain has improved. The patient has experienced a previous episode, The patient has experienced similar episodes in the past, a few times. The patient has not recently seen a physician. Historical: - Allergies: 01:25 Morphine; aggressivness; tl2 - Home Meds: 01:25 None [Active]; tl2 - PMHx: 01:25 Back pain; Chronic pain; Hypertension; scoliosis; Kidney stones; tl2 - Immunization history:: Adult Immunizations up to date. - Social history:: Smoking status: Patient uses tobacco products, chewing tobacco. - Ebola Screening: : No symptoms or risks identified at this time. ROS: 01:42 Eyes: Negative for injury, pain, redness, and discharge. cp 01:42 Constitutional: Negative for body aches, chills, fever, poor PO intake. 01:42 ENT: Negative for drainage from ear(s), ear pain, sore throat, difficulty swallowing, difficulty handling secretions. 01:42 Cardiovascular: Negative for chest pain, edema, palpitations. 01:42 Respiratory: Negative for cough, shortness of breath, wheezing. 01:42 Abdomen/GI: Positive for abdominal pain, nausea, of the right lower quadrant, Negative for constipation, anorexia, black/tarry stool, rectal bleeding. 01:42 Back: Negative for radiated pain. 01:42 : Positive for testicular pain Negative for injury or acute deformity, flank pain. 01:42 Skin: Negative for cellulitis, rash. 01:42 Neuro: Negative for altered mental status, headache, weakness. 01:42 All other systems are negative. Exam: 01:47 Constitutional: The patient appears in no acute distress, alert, awake, non-toxic, well cp developed, well nourished, uncomfortable. 01:47 Head/Face: Normocephalic, atraumatic. cp 01:47 Eyes: Periorbital structures: appear normal, Conjunctiva: normal, no exudate, no injection, Sclera: no appreciated abnormality, Lids and lashes: appear normal, bilaterally. 01:47 ENT: External ear(s): are unremarkable, Nose: is normal, Mouth: Lips: moist, Oral mucosa: pink and intact, moist, Posterior pharynx: is normal, airway is patent, no erythema, no exudate. 01:47 Neck: ROM/movement: is normal, is supple, without pain, no range of motions limitations, no meningismus, no nuchal rigidity. 01:47 Chest/axilla: Inspection: normal, Palpation: is normal, no crepitus, no tenderness. 01:47 Cardiovascular: Rate: normal, Rhythm: regular, Edema: is not appreciated, JVD: is not appreciated. 01:47 Respiratory: the patient does not display signs of respiratory distress, Respirations: normal, no use of accessory muscles, no retractions, no splinting, no tachypnea, labored breathing, is not present, Breath sounds: are clear throughout, no decreased breath sounds, no stridor, no wheezing. 01:47 Abdomen/GI: Inspection: abdomen appears normal, Bowel sounds: active, all quadrants, Palpation: soft, in all quadrants, moderate abdominal tenderness, in the right upper quadrant and right lower quadrant, rebound tenderness, is not appreciated, voluntary guarding, is elicited in the right upper quadrant and right lower quadrant, involuntary guarding, is not appreciated. 01:47 Back: pain, is absent, ROM is normal. 01:47 Skin: cellulitis, is not appreciated, no rash present. 04:02 : CVA tenderness, is absent, Male external genitalia: normal, Bladder: is normal. nd 04:02 Musculoskeletal/extremity: Extremities: all appear grossly normal, with no appreciated pain with palpation. Vital Signs: 01:25 BP 147 / 78; Pulse 85; Resp 18; Temp 97.6(O); Pulse Ox 100% on R/A; Weight 84.37 kg; tl2 Height 5 ft. 6 in. (167.64 cm); Pain 8/10; 02:39 BP 123 / 99; Pulse 74; Resp 15; Pulse Ox 99% on R/A; tl2 03:15 BP 125 / 65; Pulse 68; Resp 16; Pulse Ox 96% ; Pain 0/10; cr4 03:32 BP 132 / 70; Pulse 66; Resp 14; Pulse Ox 96% on R/A; tl2 04:25 BP 138 / 72; Pulse 63; Resp 16; Temp 97.7; Pulse Ox 97% ; Pain 3/10; cr4 01:25 Body Mass Index 30.02 (84.37 kg, 167.64 cm) tl2 MDM: 01:23 Patient medically screened. wa 01:45 Differential diagnosis: appendicitis, cholecystitis, Cholelithiasis, gastritis, cp pancreatitis, Pyelonephritis, Testicular Torsion, Ureterolithiasis, urinary tract infection. 02:52 Data reviewed: vital signs, nurses notes, lab test result(s). Transition of care: After cp a detail discussion of the patient's case, care is transferred to Galindo Solares MD. 04:03 Differential diagnosis: nephrolithiasis, pyelonephritis, UTI, testicular torsion, wa diverticulitis. Test interpretation: by ED physician or midlevel provider: labs noted for UTI. CT abd/pelvis: 3 mm stone R prox ureter with mild hydro. Response to treatment: the patient's symptoms have markedly improved after treatment. 09/03 01:24 Order name: Amylase, Serum; Complete Time: 02:16 cp 09/03 01:24 Order name: Basic Metabolic Panel; Complete Time: 02:16 cp 09/03 02:16 Interpretation: Normal except: GLUC 140; GFR 86; K 2.9. 09/03 01:24 Order name: CBC with Diff; Complete Time: 02:16 cp 09/03 02:16 Interpretation: Normal except: WBC 11.4; PETER% 76.5; NEUT A 8.7. cp 09/03 01:24 Order name: Creatinine for Radiology; Complete Time: 02:16 cp 09/03 01:24 Order name: Hepatic Function; Complete Time: 02:16 cp 09/03 01:24 Order name: Lipase; Complete Time: 02:16 cp 09/03 01:24 Order name: IV Saline Lock; Complete Time: 02:30 cp 09/03 01:24 Order name: Labs collected and sent; Complete Time: 02:30 cp 09/03 01:24 Order name: CT Stone Protocol cp Administered Medications: 01:46 Drug: TORadol 30 mg Route: IVP; Site: right antecubital; cr4 02:30 Follow up: Response: No adverse reaction; Pain is decreased cr4 01:46 Drug: Zofran 4 mg Route: IVP; Site: right antecubital; cr4 02:30 Follow up: Response: No adverse reaction; Nausea is decreased cr4 02:39 Drug: Potassium Chloride 20 mEq Route: IV; Rate: calculated rate; Site: right tl2 antecubital; 04:25 Follow up: Response: No adverse reaction; IV Status: Order to discontinue infusion; IV cr4 Intake: 70ml 04:25 Drug: Potassium Chloride 40 mEq Route: PO; cr4 04:32 Follow up: Response: No adverse reaction cr4 Point of Care Testing: Blood Glucose: 01:25 Blood Glucose: 93 mg/dL; tl2 Ranges: Critical Glucose Levels:Adult <50 mg/dl or >400 mg/dl <40 mg/dl or >180 mg/dl Disposition: 04:07 Co-signature as Attending Physician, Samm Del Cid MD I agree with the assessment and wa plan of care. Disposition: 09/03/17 04:05 Discharged to Home. Impression: Acute Right Flank Pain, Right Ureteral Colic, Hypokalemia. - Condition is Stable. - Discharge Instructions: Kidney Stones, [id number]. - Prescriptions for ketorolac 10 mg Oral tablet - take 1 tablet by ORAL route every 8 hours not to exceed 40 mg in 24hrs; 15 tablet. Zofran 4 mg Oral Tablet - take 1 tablet by ORAL route every 12 hours As needed; 6 tablet. Flomax 0.4 mg Oral Capsule, Sust. Release 24 hr - take 1 capsule by ORAL route once daily 1/2 hour following the same meal each day; 5 capsule. - Medication Reconciliation Form, Thank You Letter, Antibiotic Education, Prescription Opioid Use form. - Follow up: Samm Del Cid MD; When: 2 - 3 days; Reason: Recheck today's complaints. - Problem is new. - Symptoms have improved. Signatures: Dispatcher [employer] EDRI Vivien Cota RN RN cr4 Gallito Pham PA PA cp Knox, Taylor, RN RN tl2 Galindo Solares MD MD wa Corrections: (The following items were deleted from the chart) 04:15 04:05 09/03/2017 04:05 Discharged to Home. Impression: Acute Right Flank Pain; Right wa Ureteral Colic. Condition is Stable. Forms are Medication Reconciliation Form, Thank You Letter, Antibiotic Education, Prescription Opioid Use. Follow up: Samm Del Cid; When: 2 - 3 days; Reason: Recheck today's complaints. Problem is new. Symptoms have improved. wa 04:36 04:15 09/03/2017 04:05 Discharged to Home. Impression: Acute Right Flank Pain; Right cr4 Ureteral Colic; Hypokalemia. Condition is Stable. Discharge Instructions: Kidney Stones, [id number]. Prescriptions for ketorolac 10 mg Oral tablet - take 1 tablet by ORAL route every 8 hours not to exceed 40 mg in 24hrs; 15 tablet, Zofran 4 mg Oral Tablet - take 1 tablet by ORAL route every 12 hours As needed; 6 tablet, Flomax 0.4 mg Oral Capsule, Sust. Release 24 hr - take 1 capsule by ORAL route once daily 1/2 hour following the same meal each day; 5 capsule. and Forms are Medication Reconciliation Form, Thank You Letter, Antibiotic Education, Prescription Opioid Use. Follow up: Samm Del Cid; When: 2 - 3 days; Reason: Recheck today's complaints. Problem is new. Symptoms have improved. wa
[2017-09-03] MEDS ORDERED: POTASSIUM CL SA 10 MEQ TAB PO ONE (04:19)
--- NOTE | 2017-09-03 10:03 | RAD REPORT ---
EXAM DESCRIPTION: CT - Stone Protocol - 09/03/2017 7:10 am CLINICAL HISTORY: Abdominal pain. Right lower quadrant pain COMPARISON: July 2017 TECHNIQUE: Computed axial tomography of the abdomen pelvis was obtained without oral or IV contrast. Lack of IV and oral contrast limits evaluation of solid organs, bowel, and vessels. Coronal reformat javier images were obtained and reviewed. All CT scans are performed using dose optimization technique as appropriate and may include automated exposure control or mA/KV adjustment according to patient size. FINDINGS: A renal calculus is not seen. Mild right hydronephrosis is present. A 2.5 millimeter calcu prisca is present within the proximal right ureter. A 6 millimeter calculus has migrated distally within the left ureter since the prior exam. It current ly lies within the mid to distal left ureter. Mild to moderate hydronephrosis is seen. The liver, spleen, pancreas and adrenals appear grossly normal There is no evidence of diverticulitis. IMPRESSION: 2.5 millimeter calculus within the proximal right ureter resulting in mild hydronephrosi s 6 millimeter calculus within the mid to distal left ureter resulting in mild to moderate left hydrone phrosis
== END 2017-09-03 04:36 | disposition home or self-care (01) ==
LOC: ER 01:17
DX: N23 Unspecified renal colic (principal); E87.6 Hypokalemia; I10 Essential (primary) hypertension; Z72.0 Tobacco use; Z88.5 Allergy status to narcotic agent
CPT/HCPCS: 36415; 74176; 76377; 80048; 80076; 82150; 83690; 85025; 96365; 96366; 96375; 99284; J2405

== ENCOUNTER 2018-01-08 21:10 | Emergency (ER) | payer OTHER, SELFPAY ==
[2018-01-08] MEDS ORDERED: NA CHLORIDE 0.9% 1,000 ML ONE (21:47)
[2018-01-08] MEDS ORDERED: ASPIRIN 81 MG CHEWABLE TABLET ONE (21:47)
[2018-01-08 22:20] LABS: Absolute Lymphocytes (CBC) 2.6 K/uL (0.7-4.9); Absolute Monocytes 0.6 K/uL (0.1-1.3); Absolute Neutrophil 2.7 K/uL (1.8-8.0); Basophils % 0.3 % (0-1.3); Eosinophils % 2.3 % (0-4.4); Hematocrit 36.3 % (39.6-49.0); Lymphocytes % 42.7 % (15.3-44.8); MCV 84.9 fL (80-100); MPV 9.2 fL (7.6-11.3); Monocytes % 9.4 % (3.3-12.3); RBC Red Blood Cell Count 4.28 M/uL (4.33-5.43)
[2018-01-08 22:33] LABS: Protime INR 0.94
[2018-01-08 22:46] LABS: ALT/SGPT 28 U/L (12-78); AST/SGOT 19 U/L (15-37); Albumin 3.4 g/dL (3.4-5.0); Alkaline Phosphatase 68 U/L (45-117); BUN Blood Urea Nitrogen 8 mg/dL (7-18); Bicarbonate 28 mmol/L (21-32); Bilirubin Direct < 0.1 mg/dL (0-0.2); Bilirubin Total 0.2 mg/dL (0.2-1.0); Glucose Level 91 mg/dL (74-106); Lipase 169 U/L (73-393); Protein, Total 6.3 g/dL (6.4-8.2); Sodium Level 140 mmol/L (136-145); Troponin I < 0.02 ng/mL (0.0-0.045)
[2018-01-08 22:50] LABS: NT PRO-BNP < 5 pg/mL (<125)
[2018-01-09] MEDS ORDERED: KETOROLAC 30 MG/ML INJ ONE (00:24)
[2018-01-09 01:01] LABS: Barbiturates NEGATIVE (NEGATIVE); Benzodiazepines NEGATIVE (NEGATIVE); Cocaine NEGATIVE (NEGATIVE); METHAMPHETAM NEGATIVE (NEGATIVE); Methadone NEGATIVE (NEGATIVE); Opiates NEGATIVE (NEGATIVE); Phencyclidine NEGATIVE (NEGATIVE); THC Cannibis NEGATIVE (NEGATIVE)
--- NOTE | 2018-01-09 02:03 | EDPHYS ---
Physician Documentation [facility] Name: Paul Patel Age: 27 yrs Sex: Male : 1990 Arrival Date: 01/08/2018 Time: 21:14 Bed 15 Private MD: ED Physician Kunal Newsome HPI: 01/08 21:40 This 27 yrs old Male presents to ER via EMS with complaints of Chest Pain. cp 21:40 Onset: The symptoms/episode began/occurred 2 day(s) ago. cp 21:40 The patient or guardian reports chest pain that is located primarily in the anterior cp chest wall. The pain radiates to the right arm. 21:40 The chest pain is described as causing indigestion. Duration: The patient or guardian cp reports a single episode, that is still ongoing. Historical: - Allergies: 21:21 Morphine; aggressivness; ao - Home Meds: 21:21 None [Active]; ao - PMHx: 21:21 Back pain; Chronic pain; Hypertension; Kidney stones; scoliosis; ao - PSHx: 21:21 None; ao - Immunization history:: Adult Immunizations up to date. - Social history:: Smoking status: Patient uses tobacco products, smokes one pack cigarettes per day. Patient/guardian denies using alcohol, street drugs. - Ebola Screening: : Patient negative for fever greater than or equal to 101.5 degrees Fahrenheit, and additional compatible Ebola Virus Disease symptoms Patient denies exposure to infectious person Patient denies travel to an Ebola-affected area in the 21 days before illness onset. ROS: 21:45 Constitutional: Negative for body aches, chills, fever, poor PO intake. cp 21:45 Eyes: Negative for injury, pain, redness, and discharge. cp 21:45 ENT: Negative for drainage from ear(s), ear pain, sore throat, difficulty swallowing, difficulty handling secretions. 21:45 Cardiovascular: Positive for chest pain, Negative for edema, palpitations. 21:45 Respiratory: Positive for shortness of breath, Negative for cough, wheezing. 21:45 Abdomen/GI: Negative for abdominal pain, nausea, vomiting, and diarrhea, anorexia, black/tarry stool, rectal bleeding. 21:45 Back: Negative for injury or acute deformity. 21:45 : Negative for urinary symptoms. 21:45 MS/extremity: Negative for injury or acute deformity, decreased range of motion, paresthesias, swelling. 21:45 Skin: Negative for cellulitis, rash. 21:45 Neuro: Negative for altered mental status, dizziness, headache, syncope, near syncope, weakness. 21:45 All other systems are negative. Exam: 21:20 ECG was reviewed by the Attending Physician. cp 21:49 Constitutional: The patient appears in no acute distress, alert, awake, cp non-diaphoretic, non-toxic, well developed, well nourished, unkempt. 21:49 Head/Face: Normocephalic, atraumatic. Eyes: Pupils equal round and reactive to light, cp extra-ocular motions intact. Lids and lashes normal. Conjunctiva and sclera are non-icteric and not injected. Cornea within normal limits. Periorbital areas with no swelling, redness, or edema. ENT: Nares patent. No nasal discharge, no septal abnormalities noted. Tympanic membranes are normal and external auditory canals are clear. Oropharynx with no redness, swelling, or masses, exudates, or evidence of obstruction, uvula midline. Mucous membranes moist. Neck: Trachea midline, no thyromegaly or masses palpated, and no cervical lymphadenopathy. Supple, full range of motion without nuchal rigidity, or vertebral point tenderness. No Meningismus. 21:49 Chest/axilla: Inspection: normal, Palpation: is normal, no crepitus, no tenderness. 21:49 Cardiovascular: Rate: normal, Rhythm: regular, Pulses: Pulses are 2+ in right radial artery and left radial artery. Heart sounds: murmur, not appreciated, Edema: is not appreciated, JVD: is not appreciated. 21:49 Respiratory: the patient does not display signs of respiratory distress, Respirations: normal, no use of accessory muscles, no retractions, no splinting, no tachypnea, labored breathing, is not present, Breath sounds: are clear throughout, no decreased breath sounds, no stridor, no wheezing. 21:49 Abdomen/GI: Inspection: abdomen appears normal, Bowel sounds: active, all quadrants, Palpation: abdomen is soft and non-tender, in all quadrants, rebound tenderness, is not appreciated, voluntary guarding, is not appreciated, involuntary guarding, is not appreciated. 21:49 Back: ROM is normal. 21:49 Musculoskeletal/extremity: Exam is negative for calf tenderness, decreased range of motion, edema. 21:49 Skin: cellulitis, is not appreciated, no rash present. 21:49 Neuro: Orientation: to person, place \T\ time. Mentation: is normal, Cerebellar function: is grossly normal, Motor: moves all fours, strength is normal, Sensation: no obvious gross deficits. 01/09 01:00 ECG was reviewed by the Attending Physician. cp Vital Signs: 01/08 21:18 BP 134 / 75; Pulse 88; Resp 18; Temp 98.3; Pulse Ox 98% on R/A; Weight 84.37 kg; Height ao 5 ft. 7 in. (170.18 cm); Pain 12/28; 22:05 BP 115 / 85; Pulse 82; Resp 18; Pulse Ox 100% ; Pain 6/10; aa1 23:00 BP 131 / 77; Pulse 76; Resp 16; Pulse Ox 99% on R/A; aa1 01/09 00:04 BP 108 / 85; Pulse 81; Resp 16; Temp 98.5; Pulse Ox 98% on R/A; aa1 00:36 BP 147 / 88 RA; aa1 00:36 BP 140 / 92 LA; aa1 01:41 BP 117 / 68; Pulse 76; Resp 14; Pulse Ox 98% on R/A; mt 01/08 21:18 Body Mass Index 29.13 (84.37 kg, 170.18 cm) ao MDM: 01/08 21:16 Patient medically screened. cp 22:00 Differential diagnosis: abnormal EKG, acute myocardial infarction, acute pericarditis, cp chest wall pain, cholecystitis, Cholelithiasis costochondritis, esophagitis, gastritis, pancreatitis, pleurisy, pneumonia, pneumothorax, pulmonary embolus, stable angina, thoracic aortic disection, unstable angina. 01/09 02:00 Data reviewed: vital signs, nurses notes, lab test result(s), EKG, radiologic studies, cp plain films. 02:00 Test interpretation: by ED physician or midlevel provider: ECG, plain radiologic cp studies. Counseling: I had a detailed discussion with the patient and/or guardian regarding: the historical points, exam findings, and any diagnostic results supporting the discharge/admit diagnosis, lab results, radiology results, to return to the emergency department if symptoms worsen or persist or if there are any questions or concerns that arise at home. Response to treatment: the patient's symptoms have markedly improved after treatment, VSS. Patient observed sleeping in exam room, and as a result, I will discharge patient. Special discussion: Based on the patient's history, exam, and Dx evaluation, there is no indication for emergent intervention or inpatient Tx. It is understood by the patient/guardian that if the Sx's persist or worsen they need to return immediately for re-evaluation. 01/08 21:35 Order name: UDS; Complete Time: 01:08 cp 01/08 22:05 Order name: Basic Metabolic Panel; Complete Time: 23:43 EDMS 01/08 23:44 Interpretation: Normal except: CL 108; CA 7.8. cp 01/08 22:05 Order name: Liver (Hepatic) Function; Complete Time: 23:43 EDMS 01/08 22:05 Order name: Troponin I; Complete Time: 23:43 EDMS 01/08 22:05 Order name: NT PRO-BNP; Complete Time: 23:43 EDMS 01/08 21:35 Order name: XRAY Chest (1 view) cp 01/08 21:35 Order name: EKG; Complete Time: 22:55 cp 01/08 21:35 Order name: Cardiac monitoring; Complete Time: 21:38 cp 01/08 21:35 Order name: EKG - Nurse/Tech; Complete Time: 21:37 cp 01/08 21:35 Order name: IV Saline Lock; Complete Time: 21:37 cp 01/08 21:35 Order name: US Extremity Venous W Compression Devaughn cp 01/08 22:05 Order name: Magnesium; Complete Time: 23:43 EDMS 01/08 22:05 Order name: Lipase; Complete Time: 23:43 EDMS 01/08 22:05 Order name: CBC with Automated Diff; Complete Time: 22:51 EDMS 01/08 22:51 Interpretation: Normal except: RBC 4.28; HGB 12.8; HCT 36.3. cp 01/08 22:05 Order name: Protime (+INR); Complete Time: 22:51 EDMS 01/08 22:05 Order name: D-Dimer; Complete Time: 22:51 EDMS 01/09 00:48 Order name: EKG; Complete Time: 00:49 cp 01/09 00:48 Order name: Troponin I; Complete Time: 01:49 cp 01/08 21:35 Order name: Labs collected and sent; Complete Time: 21:58 cp 01/08 21:35 Order name: O2 Per Protocol; Complete Time: 21:37 cp 01/08 21:35 Order name: O2 Sat Monitoring; Complete Time: 21:37 cp 01/09 00:09 Order name: Blood Pressure Recheck: bilateral upper extremity; Complete Time: 00:39 cp 01/09 00:48 Order name: EKG - Nurse/Tech; Complete Time: 01:07 cp EC/21 21:20 Rate is 83 beats/min. Rhythm is regular. VA interval is normal. QRS interval is normal. cp QT interval is normal. T waves are Flattened in lead III. Interpreted by me. Reviewed by me. 01/09 01:00 Rate is 76 beats/min. Rhythm is regular. VA interval is normal. QRS interval is normal. cp QT interval is normal. Interpreted by me. Reviewed by me. 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 rn Disposition: 01/09/18 02:02 Discharged to Home. Impression: Other chest pain. - Condition is Stable. - Discharge Instructions: Nonspecific Chest Pain, Aspirin and Your Heart. - Prescriptions for Naprosyn 500 mg Oral Tablet - take 1 tablet by ORAL route 2 times per day take with food; 20 tablet. - Work release form, Medication Reconciliation Form, Thank You Letter, Antibiotic Education, Prescription Opioid Use form. - Follow up: Nazario Briones MD; When: 2 - 3 days; Reason: Recheck today's complaints. - Problem is new. - Symptoms have improved. Signatures: Dispatcher [employer] Catrachita Smith RN RN aa1 Kunal Newsome MD MD rn Gallito Pham PA PA cp Ryne Sanderson RN RN ao Corrections: (The following items were deleted from the chart) 01/08 23:15 22:55 BASIC METABOLIC PANEL+C.LAB.BRZ ordered. EDMS EDMS 23:15 22:55 CBC+H.LAB.BRZ ordered. EDMS EDMS 23:15 22:55 HEPATIC FUNCTION+C.LAB.BRZ ordered. EDMS EDMS 23:15 22:55 MAGNESIUM+C.LAB.BRZ ordered. EDMS EDMS 23:15 22:55 PROBNP+C.LAB.BRZ ordered. EDMS EDMS 23:15 22:55 PROTIME (+INR)+COAG.LAB.BRZ ordered. EDMS EDMS 23:15 22:55 TROPONIN (EMERG DEPT USE ONLY)+C.LAB.BRZ ordered. EDMS EDMS 23:15 22:55 D-DIMER+COAG.LAB.BRZ ordered. EDMS EDMS 23:15 22:55 LIPASE+C.LAB.BRZ ordered. EDMS EDMS 23:44 23:43 Normal except: CL 108. cp cp 01/09 00:50 01/08 21:42 This 27 yrs old Male presents to ER via EMS with complaints of cp Chest Pain. cp 01/09 02:22 02:02 01/09/2018 02:02 Discharged to Home. Impression: Other chest pain. Condition is aa1 Stable. Forms are Medication Reconciliation Form, Thank You Letter, Antibiotic Education, Prescription Opioid Use. Follow up: Nazario Briones; When: 2 - 3 days; Reason: Recheck today's complaints. Problem is new. Symptoms have improved. cp
--- NOTE | 2018-01-09 02:03 | ER ---
Nurse's Notes [facility] Name: Paul Patel Age: 27 yrs Sex: Male : 1990 Arrival Date: 01/08/2018 Time: 21:14 Bed 15 Private MD: Diagnosis: Other chest pain Presentation: 01/08 21:14 Presenting complaint: EMS states: Tone up for chest pain that started two days ago and ao is getting worst. Chest pain radiates to the right arm. Patient states that it feels like indigestion. Patient rates pain 12/28. Transition of care: patient was not received from another setting of care. Onset of symptoms was January 06, 2018. Risk Assessment: Do you want to hurt yourself or someone else? Patient reports no desire to harm self or others. Initial Sepsis Screen: Does the patient meet any 2 criteria? No. Patient's initial sepsis screen is negative. Does the patient have a suspected source of infection? No. Patient's initial sepsis screen is negative. Care prior to arrival: Medication(s) given: ASA, 325 mg. 21:14 Method Of Arrival: EMS: [facility] ao 21:14 Acuity: LOWELL 3 ao Historical: - Allergies: 21:21 Morphine; aggressivness; ao - Home Meds: 21:21 None [Active]; ao - PMHx: 21:21 Back pain; Chronic pain; Hypertension; Kidney stones; scoliosis; ao - PSHx: 21:21 None; ao - Immunization history:: Adult Immunizations up to date. - Social history:: Smoking status: Patient uses tobacco products, smokes one pack cigarettes per day. Patient/guardian denies using alcohol, street drugs. - Ebola Screening: : Patient negative for fever greater than or equal to 101.5 degrees Fahrenheit, and additional compatible Ebola Virus Disease symptoms Patient denies exposure to infectious person Patient denies travel to an Ebola-affected area in the 21 days before illness onset. Screenin:19 Abuse screen: Denies threats or abuse. Denies injuries from another. Nutritional aa1 screening: No deficits noted. Tuberculosis screening: No symptoms or risk factors identified. Fall Risk IV access (20 points). Assessment: 21:19 General: Appears in no apparent distress. uncomfortable, Behavior is cooperative, aa1 appropriate for age, anxious. Pain: Complains of pain in chest, right arm and right leg Pain radiates to right arm Pain currently is 10 out of 10 on a pain scale. Quality of pain is described as heavy, pressure, Pain began 2-3 days ago. Is continuous. Neuro: Level of Consciousness is awake, alert, obeys commands, Oriented to person, place, time, situation, Moves all extremities. Full function Speech is normal. Cardiovascular: Reports chest pain, Denies diaphoresis, nausea, palpitations, shortness of breath, vomiting, Heart tones S1 S2 present Capillary refill < 3 seconds Patient's skin is warm and dry. Rhythm is regular Chest pain is described as severe, quality is heaviness, pressure, is located in anterior chest wall radiates to right arm(s). Respiratory: Airway is patent Respiratory effort is even, unlabored, Respiratory pattern is regular, symmetrical. GI: No signs and/or symptoms were reported involving the gastrointestinal system. : No signs and/or symptoms were reported regarding the genitourinary system. EENT: No signs and/or symptoms were reported regarding the EENT system. Derm: Skin is intact, is healthy with good turgor, Skin is pink, warm \T\ dry. Musculoskeletal: Circulation, motion, and sensation intact. Capillary refill is > 3 seconds. 22:04 Reassessment: Patient appears in no apparent distress at this time. Patient and/or aa1 family updated on plan of care and expected duration. Pain level reassessed. Patient is alert, oriented x 3, equal unlabored respirations, skin warm/dry/pink. Awaiting lab results. Laughing \T\ smiling with friend at bedside. 23:04 Reassessment: Patient appears in no apparent distress at this time. Patient and/or aa1 family updated on plan of care and expected duration. Pain level reassessed. Patient is alert, oriented x 3, equal unlabored respirations, skin warm/dry/pink. Patient denies pain at this time. Pt taken to u/s. 01/09 00:04 Reassessment: Patient appears in no apparent distress at this time. Patient and/or aa1 family updated on plan of care and expected duration. Pain level reassessed. Patient is alert, oriented x 3, equal unlabored respirations, skin warm/dry/pink. Awaiting provider reassessment. 02:17 Reassessment: Patient appears in no apparent distress at this time. Patient is alert, aa1 oriented x 3, equal unlabored respirations, skin warm/dry/pink. Discussed d/c \T\ f/u instructions with pt; denies questions or concerns at this time Patient denies pain at this time. Patient states feeling better. Vital Signs: 01/08 21:18 BP 134 / 75; Pulse 88; Resp 18; Temp 98.3; Pulse Ox 98% on R/A; Weight 84.37 kg; Height ao 5 ft. 7 in. (170.18 cm); Pain 10/; 22:05 BP 115 / 85; Pulse 82; Resp 18; Pulse Ox 100% ; Pain /10; aa1 23:00 BP 131 / 77; Pulse 76; Resp 16; Pulse Ox 99% on R/A; aa1 01/09 00:04 BP 108 / 85; Pulse 81; Resp 16; Temp 98.5; Pulse Ox 98% on R/A; aa1 00:36 BP 147 / 88 RA; aa1 00:36 BP 140 / 92 LA; aa1 01:41 BP 117 / 68; Pulse 76; Resp 14; Pulse Ox 98% on R/A; mt 01/08 21:18 Body Mass Index 29.13 (84.37 kg, 170.18 cm) ao ED Course: 01/08 21:14 Patient arrived in ED. ao 21:15 Gallito Pham PA is PHCP. cp 21:15 Kunal Newsome MD is Attending Physician. cp 21:17 Triage completed. ao 21:17 Arm band placed on right wrist. 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 21:19 Catrachita Llanes, RN is Primary Nurse. aa1 21:19 Patient has correct armband on for positive identification. Placed in gown. Bed in low aa1 position. Call light in reach. patient support assistant on. Pulse ox on. NIBP on. Warm blanket given. 21:19 EKG done, by ED staff, reviewed by Kunal Newsome MD. Maintain EMS IV. Dressing intact. aa1 Good blood return noted. Site clean \T\ dry. Gauge \T\ site: 20g LAC. Patient maintains SpO2 saturation greater than 95% on room air. 21:55 Initial lab(s) drawn, by me, sent to lab. aa1 23:26 Patient moved back from ultrasound. shaheed 23:27 US Extremity Venous W Compression Devaughn In Process Unspecified. EDMS 23:38 Radiology exam delayed due to [employer] DOWN. kw 23:39 X-ray completed. Portable x-ray completed in exam room. Patient tolerated procedure kw well. 23:40 XRAY Chest (1 view) In Process Unspecified. EDMS 01/09 02:02 Nazario Briones MD is Referral Physician. cp 02:18 No provider procedures requiring assistance completed. IV discontinued, intact, aa1 bleeding controlled, No redness/swelling at site. Pressure dressing applied. Administered Medications: 01/08 21:47 Drug: NS 0.9% 1000 ml Route: IV; Rate: 1 bolus; Site: left antecubital; aa1 22:30 Follow up: IV Status: Completed infusion aa1 21:47 Not Given (pt given ASA 324 mg CENTER CONSULTANT by EMS): Aspirin Chewable Tablet 324 mg PO once; 81 aa1 mg tablets x 4 01/09 00:20 Drug: TORadol 30 mg Route: IVP; Site: left antecubital; aa1 02:17 Follow up: Response: No adverse reaction; Pain is decreased aa1 Outcome: 02:02 Discharge ordered by MD. cp 02:21 Discharged to home ambulatory, with friend. aa1 02:21 Condition: stable 02:21 Discharge instructions given to patient, Instructed on discharge instructions, follow up and referral plans. medication usage, Demonstrated understanding of instructions, follow-up care, medications, Prescriptions given X 1. 02:22 Patient left the ED. aa1 Signatures: Dispatcher [employer] EDSD Catrachita Llanes RN RN aa1 Rayne Sparks Corey, PA PA cp Ortiz, Alex, RN RN Segun Perez jd, [facility] Corrections: (The following items were deleted from the chart) 00:38 00:36 Reassessment: Patient appears in no apparent distress at this time. Pt back from aa1 CT. Mother \T\ brother present in exam room. Pt crying and asking where her kids are aa1 00:39 00:36 BP 139 / 94; Pulse 112bpm; Resp 22bpm; Pulse Ox 99% RA; aa1 aa1
--- NOTE | 2018-01-09 07:47 | RAD REPORT ---
EXAM DESCRIPTION: US - Extrem Venous W Compress Devaughn - 01/08/2018 11:27 pm CLINICAL HISTORY: Leg pain and swelling COMPARISON: None. TECHNIQUE: Real-time sonographic evaluation of the bilateral lower extremity common femoral, superfi cial femoral, popliteal and posterior tibial veins was performed. FINDINGS: Normal compressibility, flow augmentation, phasic flow and spontaneous flow are identified in the left and right lower extremity common femoral, superficial femoral, popliteal and posterior t ibial veins. No intraluminal filling defects seen. IMPRESSION: No DVT in either lower extremity.
--- NOTE | 2018-01-09 07:59 | RAD REPORT ---
EXAM DESCRIPTION: RAD - Chest Single View - 01/08/2018 11:41 pm CLINICAL HISTORY: Chest pain radiating to the right arm COMPARISON: August 2016 TECHNIQUE: AP portable chest image was obtained 2326 hours . FINDINGS: Lungs are clear. Heart and vasculature are normal. No measurable pleural effusion and no p neumothorax. No acute bone findings seen. Right convex curvature to the thoracic spine is stable. No acute aortic findings suspected. IMPRESSION: No acute cardiopulmonary process.
--- NOTE | 2018-01-09 09:01 | EKG ---
Test Date: 2018-01-09 Test Time: 00:54:37 Rn Procedure: RADHA MEASUREMENT RESULTS: Intervals: Rate: 76 [place]: 144 QRSD: 86 QT: 348 QTc: 391 [place]: P: 50 [place]: 144 QRS: 60 T: 40 INTERPRETIVE STATEMENTS: Normal sinus rhythm Normal ECG Compared to ECG 01/08/2018 21:14:27 minimal criteria for anterior infarct are no longer present Electronically Signed On 01-09-18 09:00:43 CDT by Nazario Briones
--- NOTE | 2018-01-09 09:02 | EKG ---
Test Date: 2018-01-08 Test Time: 21:14:27 Property Condition Assessor: RADHA MEASUREMENT RESULTS: Intervals: Rate: 83 [place]: 148 QRSD: 80 QT: 338 QTc: 397 [place]: P: 35 [place]: 148 QRS: 21 T: 32 INTERPRETIVE STATEMENTS: Normal sinus rhythm Normal ECG Compared to ECG 09/03/2016 13:26:09 Sinus tachycardia no longer present Electronically Signed On 01-09-18 09:02:29 CDT by Nazario Briones
== END 2018-01-09 02:22 | disposition home or self-care (01) ==
LOC: ER 21:10
DX: R07.89 Other chest pain (principal); I10 Essential (primary) hypertension; F17.210 Nicotine dependence, cigarettes, uncomplicated; Z88.5 Allergy status to narcotic agent
CPT/HCPCS: 36415; 71045; 80048; 80076; 80307; 83690; 83735; 83880; 84484; 85025; 85379; 85610; 93005; 93970; 96361; 96374; 99285; J7030

== ENCOUNTER 2018-03-19 16:51 | Emergency (ER) | payer SELFPAY ==
[2018-03-19] MEDS ORDERED: IBUPROFEN 400 MG TAB ONE (18:20)
--- NOTE | 2018-03-19 18:56 | RAD REPORT ---
EXAM DESCRIPTION: RAD - Knee Right 3 View - 03/19/2018 6:27 pm CLINICAL HISTORY: PAIN COMPARISON: Knee Right 3 View dated 03/30/2015 FINDINGS: No bone or joint abnormality of the right knee is seen.
--- NOTE | 2018-03-19 19:56 | EDPHYS ---
Physician Documentation [facility] Name: Paul Patel Age: 27 yrs Sex: Male : 1990 Arrival Date: 03/19/2018 Time: 16:55 Bed 20 Private MD: ED Physician Kunal Newsome HPI: 03/19 17:48 This 27 yrs old Male presents to ER via Ambulatory with complaints of Knee jmm Pain, Back Pain. 17:48 The patient presents with pain, that is chronic. Onset: The symptoms/episode jmm began/occurred 2 year(s) ago. Modifying factors: The symptoms are alleviated by nothing. the symptoms are aggravated by movement, weight bearing. Associated signs and symptoms: Pertinent negatives fever. This is a 27 year old male with a history of chronic pain that presents to the ED with right knee pain beginning 2 years ago after jumping down a flight of stairs. Patient states having pain since which is similar in character to his current pain. Patient denies fever, denies new injury. . Historical: - Allergies: 17:11 Morphine; aggressivness, hallucinations; tw2 - Home Meds: 17:11 None [Active]; tw2 - PMHx: 17:11 Back pain; Chronic pain; Hypertension; Kidney stones; scoliosis; tw2 - PSHx: 17:11 None; tw2 - Immunization history:: Adult Immunizations. - Social history:: Smoking status: Patient uses tobacco products, chewing tobacco. - Ebola Screening: : Patient denies travel to an Ebola-affected area in the 21 days before illness onset. ROS: 17:48 Constitutional: Negative for fever, chills, and weight loss, Cardiovascular: Negative jmm for chest pain, palpitations, and edema, Respiratory: Negative for shortness of breath, cough, wheezing, and pleuritic chest pain. 17:48 Back: Positive for pain with movement. 17:48 MS/extremity: Positive for pain. 17:48 All other systems are negative. Exam: 17:48 Constitutional: This is a well developed, well nourished patient who is awake, alert, jmm and in no acute distress. Head/Face: atraumatic. Eyes: EOMI, no conjunctival erythema appreciated ENT: Moist Mucus Membranes Neck: Trachea midline, Supple Chest/axilla: Normal chest wall appearance and motion. Cardiovascular: Regular rate and rhythm. No edema appreciated Respiratory: Normal respirations, no respiratory distress appreciated Abdomen/GI: Non distended, soft Back: Normal ROM 17:48 Musculoskeletal/extremity: right knee is diffusely tender to palpation, compartments are soft, no induration is appreciated, mild erythema noted to the patellar region, FROM is appreciated, NVI. 17:48 Skin: mild erythema noted to the right patellar region. 17:48 Neuro: Orientation: is normal, Mentation: is normal, Memory: is normal. 17:48 Psych: Behavior/mood is pleasant, cooperative. Vital Signs: 17:09 BP 159 / 79; Pulse 83; Resp 18; Temp 98.9(TE); Pulse Ox 100% on R/A; Pain 9/10; tw2 MDM: 17:46 Patient medically screened. [facility] 19:51 Data reviewed: vital signs, nurses notes. Counseling: I had a detailed discussion with idania the patient and/or guardian regarding: the historical points, exam findings, and any diagnostic results supporting the discharge/admit diagnosis, radiology results, the need for outpatient follow up, to return to the emergency department if symptoms worsen or persist or if there are any questions or concerns that arise at home. ED course: Patient is alert, non toxic in appearance, patient is afebrile. FROM appreciated to the right knee, i do not suspect septic joint. pain appears to be chronic. patient is advised to follow up with orthopedics. otherwise given strict return precautions. patient understood and agrees with the plan of care. . 03/19 17:47 Order name: Knee Right 3 View XRAY; Complete Time: 18:57 [facility] 03/19 19:30 Order name: Knee Immobilizer; Complete Time: 19:47 [facility] Administered Medications: 18:11 Drug: Motrin 800 mg Route: PO; la1 20:05 Follow up: Response: No adverse reaction; Pain is decreased tl2 Disposition: 03/20 09:55 Co-signature as Attending Physician, Kunal Newsome MD. rn Disposition: 03/19/18 19:55 Discharged to Home. Impression: Pain in right knee. - Condition is Stable. - Discharge Instructions: Knee Pain. - Prescriptions for Medrol (Inderjit) 4 mg Oral Tablets, Dose Pack - take 1 tablet by ORAL route as directed - follow package instructions; 1 packet. - Medication Reconciliation Form, Thank You Letter, Antibiotic Education, Prescription Opioid Use form. - Follow up: John Stout MD; When: 2 - 3 days; Reason: Recheck today's complaints, Continuance of care, Re-evaluation by your physician. Signatures: Dispatcher [employer] EDKaden Goldbreg PA PA jmm Nieto, Roman, MD MD rn Attema, Lee RN RN la1 Vicky Duarte RN RN tw2 Stephania Regan RN RN tl2 Corrections: (The following items were deleted from the chart) 03/19 20:08 19:55 03/19/2018 19:55 Discharged to Home. Impression: Pain in right knee. Condition is tl2 Stable. Forms are Medication Reconciliation Form, Thank You Letter, Antibiotic Education, Prescription Opioid Use. Follow up: John Stout; When: 2 - 3 days; Reason: Recheck today's complaints, Continuance of care, Re-evaluation by your physician. [facility]
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
== END 2018-03-19 20:08 | disposition home or self-care (01) ==
LOC: ER 16:51
DX: M25.561 Pain in right knee (principal); I10 Essential (primary) hypertension; Z72.0 Tobacco use; Z88.5 Allergy status to narcotic agent
CPT/HCPCS: 99284

== ENCOUNTER 2018-04-15 21:24 | Emergency (ER) | payer SELFPAY ==
--- NOTE | 2018-04-15 23:47 | ER ---
Nurse's Notes [facility] Name: Paul Patel Age: 27 yrs Sex: Male : 1990 Arrival Date: 04/15/2018 Time: 21:29 Bed 24 Private MD: Diagnosis: Unspecified sprain of right foot Presentation: 04/15 21:31 Presenting complaint: Patient states: Fell into a deep hole about 3 days ago, pain to lp1 right foot/ankle; able to bear weight but painful. Transition of care: patient was not received from another setting of care. Onset of symptoms was April 12, 2018. Risk Assessment: Do you want to hurt yourself or someone else? Patient reports no desire to harm self or others. Initial Sepsis Screen: Does the patient meet any 2 criteria? No. Patient's initial sepsis screen is negative. Does the patient have a suspected source of infection? No. Patient's initial sepsis screen is negative. Care prior to arrival: None. 21:31 Method Of Arrival: Ambulatory lp1 21:31 Acuity: LOWELL 4 lp1 Historical: - Allergies: 21:33 Morphine; aggressivness, hallucinations; lp1 - Home Meds: 21:33 None [Active]; lp1 - PMHx: 21:33 Back pain; Chronic pain; Hypertension; Kidney stones; scoliosis; lp1 - PSHx: 21:33 Cholecystectomy; lp1 - Immunization history:: Adult Immunizations up to date. - Social history:: Smoking status: Patient uses tobacco products, chewing tobacco. - Ebola Screening: : No symptoms or risks identified at this time. Screenin:33 Abuse screen: Denies threats or abuse. Denies injuries from another. Nutritional lp1 screening: No deficits noted. Tuberculosis screening: No symptoms or risk factors identified. Fall Risk None identified. Assessment: 22:40 General: Appears in no apparent distress. Behavior is calm, cooperative. Pain: la1 Complains of pain in right lateral malleolus and dorsum of right foot. Neuro: Level of Consciousness is awake, alert, obeys commands, Oriented to person, place, time, situation. Cardiovascular: Capillary refill < 3 seconds Patient's skin is warm and dry. Respiratory: Airway is patent Respiratory effort is even, unlabored, Respiratory pattern is regular, symmetrical. GI: No signs and/or symptoms were reported involving the gastrointestinal system. : No signs and/or symptoms were reported regarding the genitourinary system. Musculoskeletal: Circulation, motion, and sensation intact. Vital Signs: 21:33 BP 137 / 87; Pulse 90; Resp 18; Pulse Ox 99% on R/A; Weight 84.37 kg; Height 5 ft. 8 lp1 in. (172.72 cm); Pain 5/10; 23:54 BP 134 / 84; Pulse 88; Resp 19; Pulse Ox 99% on R/A; rv 21:33 Body Mass Index 28.28 (84.37 kg, 172.72 cm) lp1 ED Course: 21:29 Patient arrived in ED. es 21:32 Triage completed. lp1 21:33 Arm band placed on left wrist. lp1 21:42 Alex Montes, MANISHA is Primary Nurse. la1 21:53 Neymar Humphrey MD is Attending Physician. gs 22:41 Call light in reach. la1 22:43 X-ray completed. Portable x-ray completed in exam room. Patient tolerated procedure la2 well. 22:44 Foot Right 3 View XRAY In Process Unspecified. EDMS 22:44 Ankle Right 3 View XRAY In Process Unspecified. EDMS 23:45 John Stout MD is Referral Physician. gs 23:55 No provider procedures requiring assistance completed. Patient did not have IV access rv during this emergency room visit. Administered Medications: No medications were administered Outcome: 23:46 Discharge ordered by . gs 23:55 Discharged to home ambulatory. rv 23:55 Condition: good 23:55 Discharge instructions given to patient, Instructed on discharge instructions, follow up and referral plans. Demonstrated understanding of instructions, follow-up care. 23:55 Patient left the ED. rv Signatures: Dispatcher [employer] EDMS Dana Jarquin Laura RN RN lp1 Alex Montes RN RN la1 Neymar Humphrey MD MD Loraine Marinelli la2 Elier Jin RN RN rv
--- NOTE | 2018-04-15 23:47 | EDPHYS ---
Physician Documentation [facility] Name: Paul Patel Age: 27 yrs Sex: Male : 1990 Arrival Date: 04/15/2018 Time: 21:29 Bed 24 Private MD: ED Physician Neymar Humphrey HPI: 04/15 23:43 This 27 yrs old Male presents to ER via Ambulatory with complaints of Foot gs Injury. 23:43 The patient presents with an injury. The complaints affect the right foot. Onset: The gs symptoms/episode began/occurred 3 day(s) ago. Modifying factors: The symptoms are alleviated by elevation of extremity, the symptoms are aggravated by weight bearing. Associated signs and symptoms: Pertinent positives: swelling, Pertinent negatives: numbness. Severity of symptoms: At their worst the symptoms were moderate, in the emergency department the symptoms are unchanged. The patient has not experienced similar symptoms in the past. Historical: - Allergies: 21:33 Morphine; aggressivness, hallucinations; lp1 - Home Meds: 21:33 None [Active]; lp1 - PMHx: 21:33 Back pain; Chronic pain; Hypertension; Kidney stones; scoliosis; lp1 - PSHx: 21:33 Cholecystectomy; lp1 - Immunization history:: Adult Immunizations up to date. - Social history:: Smoking status: Patient uses tobacco products, chewing tobacco. - Ebola Screening: : No symptoms or risks identified at this time. ROS: 23:43 All other systems are negative. gs Exam: 23:43 Cardiovascular: Regular rate and rhythm with a normal S1 and S2. No gallops, murmurs, gs or rubs. Normal PMI, no JVD. No pulse deficits. Respiratory: Lungs have equal breath sounds bilaterally, clear to auscultation and percussion. No rales, rhonchi or wheezes noted. No increased work of breathing, no retractions or nasal flaring. Back: No spinal tenderness. No costovertebral tenderness. Full range of motion. Skin: Warm, dry with normal turgor. Normal color with no rashes, no lesions, and no evidence of cellulitis. Neuro: Awake and alert, GCS 15, oriented to person, place, time, and situation. Cranial nerves II-XII grossly intact. Motor strength 5/5 in all extremities. Sensory grossly intact. Cerebellar exam normal. Normal gait. 23:43 Constitutional: The patient appears alert, awake. 23:43 Musculoskeletal/extremity: Extremities: noted in the right foot: swelling, tenderness, Circulation is intact in all extremities. Vital Signs: 21:33 BP 137 / 87; Pulse 90; Resp 18; Pulse Ox 99% on R/A; Weight 84.37 kg; Height 5 ft. 8 lp1 in. (172.72 cm); Pain 5/10; 23:54 BP 134 / 84; Pulse 88; Resp 19; Pulse Ox 99% on R/A; rv 21:33 Body Mass Index 28.28 (84.37 kg, 172.72 cm) lp1 MDM: 22:08 Patient medically screened. gs 23:43 Differential diagnosis: fracture, sprain. Data reviewed: vital signs, nurses notes. gs Response to treatment: the patient's symptoms have markedly improved after treatment, and as a result, I will discharge patient. 04/15 22:12 Order name: Foot Right 3 View XRAY 04/15 22:12 Order name: Ankle Right 3 View XRAY 04/15 23:47 Order name: Rc wrap-joint; Complete Time: 23:51 gs Administered Medications: No medications were administered Disposition: 04/15/18 23:46 Discharged to Home. Impression: Unspecified sprain of right foot. - Condition is Stable. - Discharge Instructions: Ankle Sprain, Foot Sprain. - Medication Reconciliation Form, Thank You Letter, Antibiotic Education, Prescription Opioid Use form. - Follow up: John Stout MD; When: 2 - 3 days; Reason: Re-evaluation by your physician. Signatures: Dispatcher [employer] EDNM Ce Donnelly RN RN lp1 Neymar Humphrey MD MD Elier Jin RN RN rv Corrections: (The following items were deleted from the chart) 23:55 23:46 04/15/2018 23:46 Discharged to Home. Impression: Unspecified sprain of right rv foot. Condition is Stable. Forms are Medication Reconciliation Form, Thank You Letter, Antibiotic Education, Prescription Opioid Use. Follow up: John Stout; When: 2 - 3 days; Reason: Re-evaluation by your physician. gs
--- NOTE | 2018-04-16 10:21 | RAD REPORT ---
EXAM DESCRIPTION: RAD - Ankle Right 3 View - 04/15/2018 10:45 pm CLINICAL HISTORY: Right ankle pain status post injury FINDINGS: No fracture or dislocation is seen. Soft tissue swelling is present
--- NOTE | 2018-04-16 10:23 | RAD REPORT ---
EXAM DESCRIPTION: RAD - Foot Right 3 View - 04/15/2018 10:46 pm CLINICAL HISTORY: Right foot pain status post injury FINDINGS: No fracture or dislocation is seen
== END 2018-04-15 23:55 | disposition home or self-care (01) ==
LOC: ER 21:24
DX: S93.601A Unspecified sprain of right foot, initial encounter (principal); X58.XXXA Exposure to other specified factors, initial encounter; Y93.9 Activity, unspecified; Y92.9 Unspecified place or not applicable; Z72.0 Tobacco use; Z88.5 Allergy status to narcotic agent; I10 Essential (primary) hypertension
CPT/HCPCS: 99283

== ENCOUNTER 2019-01-09 18:59 | Emergency (ER) | payer SELFPAY ==
[2019-01-09] MEDS ORDERED: NA CHLORIDE 0.9% 1,000 ML ONE (19:26)
[2019-01-09] MEDS ORDERED: ONDANSETRON 4 MG/2 ML VIAL ONE (19:26)
[2019-01-09] MEDS ORDERED: MECLIZINE HCL 12.5 MG TAB ONE (19:38)
[2019-01-09 19:45] LABS: Absolute Lymphocytes (CBC) 2.6 K/uL (0.7-4.9); Basophils % 0.7 % (0-1.3); Hematocrit 43.1 % (39.6-49.0); Lymphocytes % 32.9 % (15.3-44.8); MPV 9.4 fL (7.6-11.3); RBC Red Blood Cell Count 5.13 M/uL (4.33-5.43)
[2019-01-09 20:21] LABS: ALT/SGPT 58 U/L (12-78); AST/SGOT 28 U/L (15-37); Albumin 3.9 g/dL (3.4-5.0); Alkaline Phosphatase 78 U/L (45-117); BUN Blood Urea Nitrogen 8 mg/dL (7-18); Bicarbonate 30 mmol/L (21-32); Bilirubin Direct < 0.1 mg/dL (0-0.2); Bilirubin Total 0.4 mg/dL (0.2-1.0); Glucose Level 90 mg/dL (74-106); Lipase 124 U/L (73-393); Potassium 4.1 mmol/L (3.5-5.1); Protein, Total 7.5 g/dL (6.4-8.2); Sodium Level 139 mmol/L (136-145)
[2019-01-09] MEDS ORDERED: KETOROLAC 30 MG/ML INJ ONE (20:43)
--- NOTE | 2019-01-09 21:10 | ER ---
Nurse's Notes [facility] Name: Paul Patel Age: 28 yrs Sex: Male : 1990 Arrival Date: 01/09/2019 Time: 19:02 Bed 7 Private MD: Diagnosis: BENIGN POSITIONAL VERTIGO Presentation: 01/09 19:09 Presenting complaint: Significant other states: "he's cold, hasn't really eaten in lp1 about 4 days, dizzy, he's sleeping all of the time"; Patient states symptoms for about 1 week, "If I don't got no snuff, I'll throw up, everything tastes like crap". Transition of care: patient was not received from another setting of care. Onset of symptoms was January 09, 2019. Risk Assessment: Do you want to hurt yourself or someone else? Patient reports no desire to harm self or others. Care prior to arrival: None. 19:09 Method Of Arrival: Ambulatory lp1 19:09 Acuity: LOWELL 3 lp1 19:14 Initial Sepsis Screen: Does the patient meet any 2 criteria? No. Patient's initial lp1 sepsis screen is negative. Does the patient have a suspected source of infection? No. Patient's initial sepsis screen is negative. Triage Assessment: 19:40 GI: Reports lower abdominal pain, nausea. ao Historical: - Allergies: 19:11 Morphine; aggressivness, hallucinations; lp1 - Home Meds: 19:11 None [Active]; lp1 - PMHx: 19:11 Back pain; Chronic pain; Hypertension; Kidney stones; scoliosis; lp1 - PSHx: 19:11 Cholecystectomy; lp1 - Immunization history:: Adult Immunizations up to date. - Social history:: Smoking status: Patient uses tobacco products, smokes one-half pack cigarettes per day, chewing tobacco. - Ebola Screening: : No symptoms or risks identified at this time. Screenin:12 Abuse screen: Denies threats or abuse. Denies injuries from another. Nutritional lp1 screening: No deficits noted. Tuberculosis screening: No symptoms or risk factors identified. Fall Risk None identified. Assessment: 19:39 General: Appears in no apparent distress. comfortable, Behavior is calm, cooperative, ao appropriate for age. Pain: Complains of pain in GENERAL PAIN. Neuro: Level of Consciousness is awake, alert, obeys commands, Oriented to person, place, time, situation, Appropriate for age Moves all extremities. Full function Speech is normal, Facial symmetry appears normal. Cardiovascular: Capillary refill < 3 seconds Patient's skin is warm and dry. Respiratory: Airway is patent Respiratory effort is even, unlabored, Respiratory pattern is regular, symmetrical. GI: Abdomen is obese. : No signs and/or symptoms were reported regarding the genitourinary system. EENT: Derm: No signs and/or symptoms reported regarding the dermatologic system. Musculoskeletal: No signs and/or symptoms reported regarding the musculoskeletal system. 20:48 Reassessment: Patient appears in no apparent distress at this time. Patient and/or ao family updated on plan of care and expected duration. Pain level reassessed. Patient resting in stretcher. 21:26 Reassessment: DC home. Patient understand the DC instructions and to follow up with PCP.ao Vital Signs: 19:13 BP 144 / 94; Pulse 99; Resp 18; Temp 98.2(O); Pulse Ox 98% on R/A; Weight 86.18 kg (R); lp1 Height 5 ft. 9 in. (175.26 cm); Pain 0/10; 20:49 BP 124 / 83; Pulse 96; Resp 18; Pulse Ox 98% ; ao 19:13 Body Mass Index 28.06 (86.18 kg, 175.26 cm) lp1 ED Course: 19:02 Patient arrived in ED. as 19:11 Triage completed. lp1 19:11 Arm band placed on right wrist. lp1 19:19 Ryne Sanderson RN is Primary Nurse. ao 19:23 Bill Hernandez MD is Attending Physician. tw4 19:40 Patient has correct armband on for positive identification. Pulse ox on. NIBP on. ao 21:27 No provider procedures requiring assistance completed. IV discontinued, intact, ao bleeding controlled, No redness/swelling at site. Pressure dressing applied. Administered Medications: 19:38 Drug: NS 0.9% 1000 ml Route: IV; Rate: 1 bolus; Site: left antecubital; ao 20:55 Follow up: Response: No adverse reaction; IV Status: Completed infusion; IV Intake: ea 1000ml 19:38 Drug: Zofran 4 mg Route: IVP; Site: left antecubital; ao 20:55 Follow up: Response: No adverse reaction ea 20:08 Drug: Meclizine 50 mg Route: PO; ea 20:55 Drug: TORadol 30 mg Route: IVP; Site: left antecubital; ea Intake: 20:55 IV: 1000ml; Total: 1000ml. ea Outcome: 21:09 Discharge ordered by . tw4 21:27 Discharged to home ambulatory. ao 21:27 Condition: stable 21:27 Discharge instructions given to patient, Instructed on discharge instructions, follow up and referral plans. Demonstrated understanding of instructions, follow-up care, medications, Prescriptions given X 2. 21:28 Patient left the ED. ao Signatures: Sylwia Pendleton Laura RN RN lp1 Ryne Sanderson RN RN Mariaa Mosquera, RN RN Bill Campbell MD MD tw4 Corrections: (The following items were deleted from the chart) 19:14 19:09 Initial Sepsis Screen: Does the patient meet any 2 criteria? lp1 lp1
--- NOTE | 2019-01-09 21:10 | EDPHYS ---
Physician Documentation [facility] Name: Paul Patel Age: 28 yrs Sex: Male : 1990 Arrival Date: 01/09/2019 Time: 19:02 Bed 7 Private MD: ED Physician Bill Hernandez HPI: 01/09 21:04 This 28 yrs old Male presents to ER via Ambulatory with complaints of tw4 Dizziness, Pain All Over, Nausea. 21:04 The patient presents with generalized weakness, a sense of confusion, sense of tw4 spinning, vertigo. Onset: The symptoms/episode began/occurred last week. Context: occurred at home. Modifying factors: The symptoms are alleviated by closing eyes, lying down, the symptoms are aggravated by movement of head, standing up, changing position. Associated signs and symptoms: Pertinent positives: nausea, vomiting. Severity of symptoms: At their worst the symptoms were moderate in the emergency department the symptoms are unchanged. The patient has not experienced similar symptoms in the past. Historical: - Allergies: 19:11 Morphine; aggressivness, hallucinations; lp1 - Home Meds: 19:11 None [Active]; lp1 - PMHx: 19:11 Back pain; Chronic pain; Hypertension; Kidney stones; scoliosis; lp1 - PSHx: 19:11 Cholecystectomy; lp1 - Immunization history:: Adult Immunizations up to date. - Social history:: Smoking status: Patient uses tobacco products, smokes one-half pack cigarettes per day, chewing tobacco. - Ebola Screening: : No symptoms or risks identified at this time. ROS: 21:04 Constitutional: Negative for fever, chills, and weight loss, Eyes: Negative for injury, tw4 pain, redness, and discharge, Neck: Negative for injury, pain, and swelling, Cardiovascular: Negative for chest pain, palpitations, and edema, Respiratory: Negative for shortness of breath, cough, wheezing, and pleuritic chest pain, Back: Negative for injury and pain. 21:04 Abdomen/GI: Positive for nausea and vomiting, nausea, vomiting, and diarrhea, nausea, vomiting, Negative for abdominal pain, diarrhea, constipation, abdominal cramps, abdominal distension, anorexia, dysphagia, black/tarry stool, rectal pain, rectal bleeding. 21:04 Neuro: Positive for dizziness, tinnitus, Negative for altered mental status, gait disturbance, headache, hearing loss, numbness, seizure activity, speech changes, syncope, near syncope, tremor, visual changes. Exam: 21:04 Head/Face: Normocephalic, atraumatic. Eyes: Pupils equal round and reactive to light, tw4 extra-ocular motions intact. Lids and lashes normal. Conjunctiva and sclera are non-icteric and not injected. Cornea within normal limits. Periorbital areas with no swelling, redness, or edema. Chest/axilla: Normal chest wall appearance and motion. Nontender with no deformity. No lesions are appreciated. Cardiovascular: Regular rate and rhythm with a normal S1 and S2. No gallops, murmurs, or rubs. Normal PMI, no JVD. No pulse deficits. Respiratory: Lungs have equal breath sounds bilaterally, clear to auscultation and percussion. No rales, rhonchi or wheezes noted. No increased work of breathing, no retractions or nasal flaring. Abdomen/GI: Soft, non-tender, with normal bowel sounds. No distension or tympany. No guarding or rebound. No evidence of tenderness throughout. Skin: Warm, dry with normal turgor. Normal color with no rashes, no lesions, and no evidence of cellulitis. MS/ Extremity: Pulses equal, no cyanosis. Neurovascular intact. Full, normal range of motion. Neuro: Awake and alert, GCS 15, oriented to person, place, time, and situation. Cranial nerves II-XII grossly intact. Motor strength 5/5 in all extremities. Sensory grossly intact. Cerebellar exam normal. Normal gait. 21:04 Constitutional: The patient appears in obvious distress, mildly distressed. Vital Signs: 19:13 BP 144 / 94; Pulse 99; Resp 18; Temp 98.2(O); Pulse Ox 98% on R/A; Weight 86.18 kg (R); lp1 Height 5 ft. 9 in. (175.26 cm); Pain 0/10; 20:49 BP 124 / 83; Pulse 96; Resp 18; Pulse Ox 98% ; ao 19:13 Body Mass Index 28.06 (86.18 kg, 175.26 cm) lp1 MDM: 21:04 Differential diagnosis: cardiac arrhythmia, CVA, generalized weakness. Data reviewed: tw4 vital signs, nurses notes. Data reviewed: lab test result(s), CBC, white blood cell count, hemoglobin, hematocrit, platelets, electrolytes, sodium, potassium, chloride, serum bicarbonate, BUN, creatinine, serum glucose. Counseling: I had a detailed discussion with the patient and/or guardian regarding: the historical points, exam findings, and any diagnostic results supporting the discharge/admit diagnosis. Medication response: meclizine. Response to treatment: and as a result, I will discharge patient. Response to treatment: the patient's symptoms have resolved after treatment, vertigo resolved. 21:09 Patient medically screened. tw01/09 19:21 Order name: Basic Metabolic Panel; Complete Time: 20:31 tw4 01/09 20:31 Interpretation: Normal except: GFR 72. tw01/09 19:21 Order name: CBC with Diff; Complete Time: 20:31 4 01/09 20:31 Interpretation: Within normal limits. tw01/09 19:21 Order name: Creatinine for Radiology; Complete Time: 20:31 01/09 20:31 Interpretation: Within normal limits. 01/09 19:21 Order name: Hepatic Function; Complete Time: 20:31 tw4 01/09 20:31 Interpretation: Normal except: GLOB 3.6. tw4 01/09 19:21 Order name: Lipase; Complete Time: 20:31 4 01/09 20:31 Interpretation: Within normal limits: LIP 124. tw01/09 19:21 Order name: IV Saline Lock; Complete Time: 19:38 tw4 01/09 19:21 Order name: Labs collected and sent; Complete Time: 19:38 tw4 Administered Medications: 19:38 Drug: NS 0.9% 1000 ml Route: IV; Rate: 1 bolus; Site: left antecubital; ao 20:55 Follow up: Response: No adverse reaction; IV Status: Completed infusion; IV Intake: ea 1000ml 19:38 Drug: Zofran 4 mg Route: IVP; Site: left antecubital; ao 20:55 Follow up: Response: No adverse reaction ea 20:08 Drug: Meclizine 50 mg Route: PO; ea 20:55 Drug: TORadol 30 mg Route: IVP; Site: left antecubital; ea Disposition: 01/09/19 21:09 Discharged to Home. Impression: BENIGN POSITIONAL VERTIGO. - Condition is Stable. - Discharge Instructions: Benign Positional Vertigo, Vertigo. - Prescriptions for Meclizine 25 mg Oral Tablet - take 1 tablet by ORAL route every 8 hours As needed; 30 tablet. Zofran 4 mg Oral Tablet - take 1 tablet by ORAL route every 12 hours As needed; 6 tablet. - Work release form, Medication Reconciliation Form, Thank You Letter, Antibiotic Education, Prescription Opioid Use form. - Follow up: Private Physician; When: Upon discharge from the Emergency Department; Reason: If symptoms return, Recheck today's complaints, Continuance of care. - Problem is new. - Symptoms have improved. Signatures: Dispatcher [employer] EDMS Ce Donnelly RN RN lp1 Ryne Sanderson RN Mariaa Trammell RN Bill Reagan ea, MD MD tw4 Corrections: (The following items were deleted from the chart) 21:28 21:09 01/09/2019 21:09 Discharged to Home. Impression: BENIGN POSITIONAL VERTIGO. ao Condition is Stable. Forms are Medication Reconciliation Form, Thank You Letter, Antibiotic Education, Prescription Opioid Use. Follow up: Private Physician; When: Upon discharge from the Emergency Department; Reason: If symptoms return, Recheck today's complaints, Continuance of care. Problem is new. Symptoms have improved. tw4
[2019-01-09 22:19] VITALS: TEMP 98.2; O2SAT 98
[2019-01-09 22:20] VITALS: BP 124/83
== END 2019-01-09 21:28 | disposition home or self-care (01) ==
LOC: ER 18:59
DX: H81.10 Benign paroxysmal vertigo, unspecified ear (principal); I10 Essential (primary) hypertension; Z72.0 Tobacco use; Z88.5 Allergy status to narcotic agent
CPT/HCPCS: 36415; 80048; 80076; 83690; 85025; 96361; 96374; 96375; 99283; J2405; J7030; J8597

== ENCOUNTER 2019-02-14 21:18 | Emergency (ER) | payer SELFPAY ==
--- OUTSIDE RECORDS SUMMARY | 2019-02-14 21:21 | XMS REPORT ---
:1990 [facility] Address [address] [place] [address] Dr. Tee [address] [place] [id number] Care Team Providers Name Role Phone Unavailable Unavailable Unavailable Problems This patient has no known problems. Allergies, Adverse Reactions, Alerts This patient has no known allergies or adverse reactions. Medications This patient has no known medications.
--- NOTE | 2019-02-14 22:50 | ER ---
Nurse's Notes [facility] Name: Paul Patel Age: 28 yrs Sex: Male : 1990 Arrival Date: 02/14/2019 Time: 21:26 Bed 26 [facility] MD: Diagnosis: Muscle spasm of back;Sprain of ankle Presentation: 02/14 21:30 Presenting complaint: Patient states: "My shoulder started hurting a week ago and its aj1 been getting worse and my foot has been hurting for a month or two" Patient reports that he has injured himself "multiple times". Transition of care: patient was not received from another setting of care. Onset of symptoms was 2018. Risk Assessment: Do you want to hurt yourself or someone else? Patient reports no desire to harm self or others. Initial Sepsis Screen: Does the patient meet any 2 criteria? No. Patient's initial sepsis screen is negative. Does the patient have a suspected source of infection? No. Patient's initial sepsis screen is negative. Care prior to arrival: None. 21:30 Method Of Arrival: Ambulatory aj 21:30 Acuity: LOWELL 4 aj1 Triage Assessment: 21:32 General: Appears in no apparent distress. comfortable, Behavior is calm, cooperative, aj1 appropriate for age. Pain: Pain currently is 3 out of 10 on a pain scale. Neuro: Level of Consciousness is awake, alert, obeys commands. Cardiovascular: Patient's skin is warm and dry. Respiratory: Airway is patent Respiratory effort is even, unlabored, Respiratory pattern is regular, symmetrical. Musculoskeletal: Range of motion: limited in right shoulder. Historical: - Allergies: 21:32 Morphine; aggressivness, hallucinations; aj1 - Home Meds: 21:32 None [Active]; aj1 - PMHx: 21:32 Back pain; Chronic pain; Hypertension; Kidney stones; scoliosis; aj1 - PSHx: 21:32 Cholecystectomy; aj1 - Immunization history:: Flu vaccine is not up to date. - Social history:: Smoking status: Patient uses tobacco products, smokes one-half pack cigarettes per day. - Ebola Screening: : Patient denies travel to an Ebola-affected area in the 21 days before illness onset. Screenin:45 Abuse screen: Denies threats or abuse. Nutritional screening: No deficits noted. tr5 Tuberculosis screening: No symptoms or risk factors identified. Fall Risk None identified. Assessment: 21:45 General: Appears uncomfortable, Behavior is calm, cooperative. Pain: Complains of pain tr5 in Right shoulder. Neuro: Level of Consciousness is awake, alert, obeys commands, Oriented to person, place, time. Cardiovascular: Heart tones present Capillary refill < 3 seconds Pulses are all present. Edema is absent. Respiratory: Airway is patent Respiratory effort is even, unlabored, Respiratory pattern is regular, symmetrical. GI: No signs and/or symptoms were reported involving the gastrointestinal system. : No signs and/or symptoms were reported regarding the genitourinary system. EENT: No signs and/or symptoms were reported regarding the EENT system. Derm: No signs and/or symptoms reported regarding the dermatologic system. Musculoskeletal: No signs and/or symptoms reported regarding the musculoskeletal system. Vital Signs: 21:32 BP 146 / 87; Pulse 105; Resp 20; Temp 98.0; Pulse Ox 97% on R/A; Weight 86.18 kg (R); aj1 Height 5 ft. 7 in. (170.18 cm) (R); Pain 3/10; 21:32 Body Mass Index 29.76 (86.18 kg, 170.18 cm) aj1 ED Course: 21:26 Patient arrived in ED. cl3 21:31 Triage completed. aj1 21:32 Arm band placed on Patient placed in an exam room. aj1 21:34 Kaden Cazares PA is PHCP. [facility] 21:35 Bill Hernandez MD is Attending Physician. [facility] 21:45 Patient has correct armband on for positive identification. Bed in low position. Call tr5 light in reach. Side rails up X 1. 22:46 Art Burch, RN is Primary Nurse. tr5 22:52 No provider procedures requiring assistance completed. Patient did not have IV access tr5 during this emergency room visit. Administered Medications: No medications were administered Outcome: 22:49 Discharge ordered by . [facility] 22:53 Discharged to home ambulatory. tr5 22:53 Condition: stable 23:05 Discharge instructions given to patient, Instructed on discharge instructions, follow tr5 up and referral plans. medication usage, Demonstrated understanding of instructions, follow-up care, medications, Prescriptions given X 1. 23:05 Patient left the ED. tr5 Signatures: Willow Alexandra RN RN aj1 Kaden Cazares PA PA jmm Rodriguez, Tommie, RN RN tr5 Obi Bean cl3
--- NOTE | 2019-02-14 22:50 | EDPHYS ---
Physician Documentation [facility] Name: Paul Patel Age: 28 yrs Sex: Male : 1990 Arrival Date: 02/14/2019 Time: 21:26 Bed 26 Private MD: ED Physician Bill Hernandez HPI: 02/14 22:39 This 28 yrs old Male presents to ER via Ambulatory with complaints of Foot jmm Injury. 22:39 The patient presents with pain, that is acute. Onset: The symptoms/episode jmm began/occurred gradually, at an unknown time. Associated signs and symptoms: Pertinent negatives calf tenderness, fever, rash. This is a 28 year old male with a history of htn that presents to the ED with complaints of right upper back pain and right foot pain which has been ongoing for approx 6 days. 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 Patient states back pain radiates down the right arm. Denies chest pain or shortness of breath. . Historical: - Allergies: 21:32 Morphine; aggressivness, hallucinations; aj1 - Home Meds: 21:32 None [Active]; aj1 - PMHx: 21:32 Back pain; Chronic pain; Hypertension; Kidney stones; scoliosis; aj1 - PSHx: 21:32 Cholecystectomy; aj1 - Immunization history:: Flu vaccine is not up to date. - Social history:: Smoking status: Patient uses tobacco products, smokes one-half pack cigarettes per day. - Ebola Screening: : Patient denies travel to an Ebola-affected area in the 21 days before illness onset. ROS: 22:39 Constitutional: Negative for fever, chills, and weight loss, Cardiovascular: Negative jmm for chest pain, palpitations, and edema, Respiratory: Negative for shortness of breath, cough, wheezing, and pleuritic chest pain. 22:39 Back: Positive for pain with movement. 22:39 MS/extremity: Positive for pain. 22:39 All other systems are negative. Exam: 22:39 Constitutional: This is a well developed, well nourished patient who is awake, alert, jmm and in no acute distress. Head/Face: atraumatic. Eyes: EOMI, no conjunctival erythema appreciated ENT: Moist Mucus Membranes Neck: Trachea midline, Supple Chest/axilla: Normal chest wall appearance and motion. Cardiovascular: Regular rate and rhythm. No edema appreciated Respiratory: Normal respirations, no respiratory distress appreciated Abdomen/GI: Non distended, soft 22:39 Back: muscle spasm, is appreciated in the right scapular area. 22:39 Musculoskeletal/extremity: from noted to the right ankle, no bony tenderness appreciated, compartments are soft, nvi. 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 . 22:39 Skin: Appearance: Color: normal in color. 22:39 Neuro: Orientation: is normal, Mentation: is normal, Memory: is normal. 22:39 Psych: Behavior/mood is pleasant, cooperative. Vital Signs: 21:32 BP 146 / 87; Pulse 105; Resp 20; Temp 98.0; Pulse Ox 97% on R/A; Weight 86.18 kg (R); aj1 Height 5 ft. 7 in. (170.18 cm) (R); Pain 3/10; 21:32 Body Mass Index 29.76 (86.18 kg, 170.18 cm) aj1 MDM: 22:00 Patient medically screened. [facility] 22:39 Data reviewed: vital signs, nurses notes. Counseling: I had a detailed discussion with [facility] the patient and/or guardian regarding: the historical points, exam findings, and any diagnostic results supporting the discharge/admit diagnosis, the need for outpatient follow up, to return to the emergency department if symptoms worsen or persist or if there are any questions or concerns that arise at home. ED course: Patient is alert and non toxic in appearance in the ED. I discussed with the patient the need to follow up with ortho for further evaluation. Patient understood and agrees with the plan of care. . Administered Medications: No medications were administered Disposition: 02/15 07:00 Co-signature as Attending Physician, Bill Hernandez MD I agree with the assessment and tw4 plan of care. Disposition: 02/14/19 22:49 Discharged to Home. Impression: Muscle spasm of back, Sprain of ankle. - Condition is Stable. - Discharge Instructions: Ankle Sprain, Muscle Cramps and Spasms. - Prescriptions for Zanaflex 4 mg Oral Tablet - take 1 tablet by ORAL route every 8 hours As needed; 20 tablet. - Medication Reconciliation Form, Thank You Letter, Antibiotic Education, Prescription Opioid Use form. - Follow up: Private Physician; When: 2 - 3 days; Reason: Recheck today's complaints, Continuance of care, Re-evaluation by your physician. Signatures: Willow Alexandra RN RN aj1 Kaden Cazares PA PA jmm Wadley, Terrence, MD MD tw4 Art Burch RN RN tr5 Corrections: (The following items were deleted from the chart) 02/14 23:05 22:49 02/14/2019 22:49 Discharged to Home. Impression: Muscle spasm of back; Sprain of tr5 ankle. Condition is Stable. Forms are Medication Reconciliation Form, Thank You Letter, Antibiotic Education, Prescription Opioid Use. Follow up: Private Physician; When: 2 - 3 days; Reason: Recheck today's complaints, Continuance of care, Re-evaluation by your physician. idania
[2019-02-14 23:35] VITALS: BP 146/87; TEMP 98; O2SAT 97
== END 2019-02-14 23:05 | disposition home or self-care (01) ==
LOC: ER 21:18
DX: S93.401A Sprain of unspecified ligament of right ankle, initial encounter (principal); M62.830 Muscle spasm of back; X58.XXXA Exposure to other specified factors, initial encounter; Z88.6 Allergy status to analgesic agent; F17.210 Nicotine dependence, cigarettes, uncomplicated
CPT/HCPCS: 99282

== ENCOUNTER 2019-10-21 20:23 | Emergency (ER) | payer SELFPAY ==
--- OUTSIDE RECORDS SUMMARY | 2019-10-21 20:26 | XMS REPORT | Continuity of Care Document ---
:1990 Author Organization [facility] t Address [address] [place] [address] Care Team Providers Name Role Phone Roger HER Attending Clinician Problems This patient has no known problems. Allergies, Adverse Reactions, Alerts This patient has no known allergies or adverse reactions. Medications This patient has no known medications. Procedures This patient has no known procedures. Encounters Start End Encounter Admission Attending Care Care Encounter Source Date/Time Date/Time Type Type Clinicians Facility Department ID 2018-10-13 2018-10-14 Emergency Roger [facility] [id number] 22:14:33 01:59:00 Judd Erazo [id number] [place] [id number] [place] [id number] Results This patient has no known results.
[2019-10-21 22:43] LABS: Absolute Lymphocytes (CBC) 2.6 K/uL (0.7-4.9); Basophils % 0.5 % (0-1.3); Hematocrit 42.3 % (39.6-49.0); Lymphocytes % 31.3 % (15.3-44.8); MPV 9.5 fL (7.6-11.3); RBC Red Blood Cell Count 5.11 M/uL (4.33-5.43)
[2019-10-21 23:08] LABS: ALT/SGPT 54 U/L (12-78); AST/SGOT 16 U/L (15-37); Alkaline Phosphatase 88 U/L (45-117); BUN Blood Urea Nitrogen 10 mg/dL (7-18); Bicarbonate 29 mmol/L (21-32); Bilirubin Direct < 0.1 mg/dL (0-0.2); Bilirubin Total 0.3 mg/dL (0.2-1.0); Glucose Level 94 mg/dL (74-106); Magnesium 2.3 mg/dL (1.8-2.4); NT PRO-BNP 6 pg/mL (<125); Potassium 3.9 mmol/L (3.5-5.1); Protein, Total 7.8 g/dL (6.4-8.2); Sodium Level 139 mmol/L (136-145); Troponin (Emerg Dept Use Only) < 0.02 ng/mL (0.0-0.045)
[2019-10-21 23:10] LABS: Protime INR 0.95
[2019-10-21] MEDS ORDERED: KETOROLAC 30 MG/ML INJ ONE (23:12)
--- NOTE | 2019-10-22 00:07 | ER ---
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 Coronavirus screen: Client denies travel out of the [place] in the last 14 days. At this time, the client does not indicate any symptoms associated with coronavirus-19. The client reports previous COVID testing was negative. Ebola Screen: Patient denies travel to an Ebola-affected area in the 21 days before illness onset. Initial Sepsis Screen: Does the patient meet any 2 criteria? HR > 90 bpm. Risk Assessment: Do you want to hurt yourself or someone else? Patient reports no desire to harm self or others. Onset of symptoms was October 21, 2019. 20:44 Method Of Arrival: Ambulatory ll1 20:44 Acuity: LOWELL 3 ll1 22:17 Initial Sepsis Screen: Does the patient have a suspected source of infection? No. rv Patient's initial sepsis screen is negative. Historical: - Allergies: 20:47 Morphine; aggressivness, hallucinations; ll1 - PMHx: 20:47 Back pain; Chronic pain; Hypertension; Kidney stones; scoliosis; ll1 - PSHx: 20:47 Cholecystectomy; ll1 - Immunization history:: Flu vaccine is not up to date. - Social history:: Smoking status: Patient reports use of chewing tobacco. Patient/guardian denies using alcohol, street drugs. Screenin:17 Abuse screen: Denies threats or abuse. Denies injuries from another. Nutritional rv screening: No deficits noted. Tuberculosis screening: No symptoms or risk factors identified. Fall Risk None identified. Assessment: 22:16 General: Appears comfortable, Behavior is calm, cooperative. Pain: Complains of pain in rv chest Pain does not radiate. Pain began suddenly. Neuro: Level of Consciousness is awake, alert, obeys commands, Oriented to person, place, time, situation. Cardiovascular: Rhythm is regular. Respiratory: Airway is patent Respiratory effort is even, unlabored, Breath sounds are clear bilaterally. Vital Signs: 20:44 BP 147 / 110; Pulse 100; Resp 18; Temp 98.9; Pulse Ox 100% ; Weight 89.81 kg; Height 5 ll1 ft. 8 in. (172.72 cm); Pain 2/10; 22:17 BP 137 / 94; Pulse 94; Resp 17; Pulse Ox 100% on R/A; rv 23:37 BP 129 / 94; Pulse 75; Resp 12; Pulse Ox 96% on R/A; rv 10/21 00:16 BP 118 / 79; Pulse 75; Resp 16; Temp 98.5; Pulse Ox 98% ; rv 10/20 20:44 Body Mass Index 30.11 (89.81 kg, 172.72 cm) ll1 ED Course: 10/20 20:26 Patient arrived in ED. cl3 20:46 Triage completed. ll1 20:47 Arm band placed on. ll1 20:57 EKG completed in triage. Results shown to MD. ll1 21:46 Bill Hernandez MD is Attending Physician. tw4 22:00 Initial lab(s) drawn, by me, sent to lab. Inserted saline lock: 20 gauge in right rv antecubital area, using aseptic technique. Blood collected. 22:00 Patient maintains SpO2 saturation greater than 95% on room air. rv 22:03 Elier Jin, RN is Primary Nurse. rv 22:17 Patient has correct armband on for positive identification. security monitor on. Pulse rv ox on. NIBP on. 22:26 XRAY Chest (1 view) In Process Unspecified. EDMS 23:37 No provider procedures requiring assistance completed. rv 10/21 00:16 IV discontinued, intact, bleeding controlled, No redness/swelling at site. Pressure rv dressing applied. Administered Medications: 10/20 23:04 Drug: TORadol 30 mg Route: IVP; Site: left antecubital; rv 10/21 00:16 Follow up: Response: No adverse reaction rv Outcome: 00:06 Discharge ordered by . tw4 00:16 Discharged to home ambulatory. rv 00:16 Condition: good 00:16 Discharge instructions given to patient, Instructed on discharge instructions, follow up and referral plans. Demonstrated understanding of instructions, follow-up care. 00:16 Patient left the ED. rv Signatures: Dispatcher [employer] EDMD Bill Hernandez MD MD tw4 Elier Jin, RN RN rv Vikas, Obi cl3 Leroy Bean, RN RN ll1
--- NOTE | 2019-10-22 00:07 | EDPHYS ---
Physician Documentation [facility] Name: Paul Patel Age: 28 yrs Sex: Male : 1990 Arrival Date: 10/21/2019 Time: 20:26 Bed 5 Private MD: ED Physician Bill Hernandez HPI: 10/21 04:01 This 28 yrs old Male presents to ER via Ambulatory with complaints of Chest tw4 Pain. 04:01 The patient or guardian reports chest pain that is located primarily in the anterior tw4 chest wall. The pain does not radiate. Associated signs and symptoms: The patient has no apparent associated signs or symptoms. The chest pain is described as sharp. Duration: The patient or guardian reports multiple episodes, that wax and wane, with no pattern, the episodes last approximately 5 second(s). Modifying factors: The symptoms are alleviated by nothing. the symptoms are aggravated by nothing. Severity of pain: At its worst the pain was mild in the emergency department the pain has resolved. The patient has not experienced similar symptoms in the past. Historical: - Allergies: 10/20 20:47 Morphine; aggressivness, hallucinations; ll1 - PMHx: 20:47 Back pain; Chronic pain; Hypertension; Kidney stones; scoliosis; ll1 - PSHx: 20:47 Cholecystectomy; ll1 - Immunization history:: Flu vaccine is not up to date. - Social history:: Smoking status: Patient reports use of chewing tobacco. Patient/guardian denies using alcohol, street drugs. ROS: 10/21 04:01 Constitutional: Negative for fever, chills, and weight loss, Eyes: Negative for injury, tw4 pain, redness, and discharge, Respiratory: Negative for shortness of breath, cough, wheezing, and pleuritic chest pain, Abdomen/GI: Negative for abdominal pain, nausea, vomiting, diarrhea, and constipation, Back: Negative for injury and pain, MS/Extremity: Negative for injury and deformity, Skin: Negative for injury, rash, and discoloration. Cardiovascular: Positive for chest pain, Negative for edema, orthopnea, palpitations. Exam: 04:01 Constitutional: This is a well developed, well nourished patient who is awake, alert, tw4 and in no acute distress. Head/Face: Normocephalic, atraumatic. Chest/axilla: Normal chest wall appearance and motion. Nontender with no deformity. No lesions are appreciated. Cardiovascular: Regular rate and rhythm with a normal S1 and S2. No gallops, murmurs, or rubs. Normal PMI, no JVD. No pulse deficits. Respiratory: Lungs have equal breath sounds bilaterally, clear to auscultation and percussion. No rales, rhonchi or wheezes noted. No increased work of breathing, no retractions or nasal flaring. Abdomen/GI: Soft, non-tender, with normal bowel sounds. No distension or tympany. No guarding or rebound. No evidence of tenderness throughout. Back: No spinal tenderness. No costovertebral tenderness. Full range of motion. MS/ Extremity: Pulses equal, no cyanosis. Neurovascular intact. Full, normal range of motion. Neuro: Awake and alert, GCS 15, oriented to person, place, time, and situation. Cranial nerves II-XII grossly intact. Motor strength 5/5 in all extremities. Sensory grossly intact. Cerebellar exam normal. Normal gait. Vital Signs: 10/20 20:44 BP 147 / 110; Pulse 100; Resp 18; Temp 98.9; Pulse Ox 100% ; Weight 89.81 kg; Height 5 ll1 ft. 8 in. (172.72 cm); Pain 2/10; 22:17 BP 137 / 94; Pulse 94; Resp 17; Pulse Ox 100% on R/A; rv 23:37 BP 129 / 94; Pulse 75; Resp 12; Pulse Ox 96% on R/A; rv 10/21 00:16 BP 118 / 79; Pulse 75; Resp 16; Temp 98.5; Pulse Ox 98% ; rv 10/20 20:44 Body Mass Index 30.11 (89.81 kg, 172.72 cm) ll1 MDM: 10/20 22:14 Patient medically screened. tw4 10/21 00:02 Data reviewed: vital signs, nurses notes. Data interpreted: Pulse oximetry: tw4 Interpretation: normal. Counseling: I had a detailed discussion with the patient and/or guardian regarding: the historical points, exam findings, and any diagnostic results supporting the discharge/admit diagnosis. Special discussion: I discussed with the patient/guardian in detail that at this point there is no indication for admission to the hospital. It is understood, however, that if the symptoms persist or worsen the patient needs to return immediately for re-evaluation. 04:01 HEART Score: History: Slightly Suspicious (0), ECG: Normal (0), Age: < or = 45 years tw4 (0), Risk Factors: No Risk Factors Known (0), Troponin: < or = 1 x Normal Limit (0), Total Score = 0. Data reviewed: lab test result(s), CBC, electrolytes, hepatic panel, EKG. 10/20 21:04 Order name: Basic Metabolic Panel; Complete Time: 00:00 rv 10/21 00:00 Interpretation: Normal except: GFR 66; CA 8.4. [facility] 10/20 22:04 Order name: CBC with Diff; Complete Time: 00:00 rv 10/21 00:01 Interpretation: Within normal limits. [facility] 10/20 22:04 Order name: LFT's; Complete Time: 00:00 rv 10/21 00:00 Interpretation: Normal except: GLOB 3.8. [facility] 10/20 22:04 Order name: Magnesium; Complete Time: 00:00 rv 10/21 00:01 Interpretation: Within normal limits: MG 2.3. [facility] 10/20 22:04 Order name: NT PRO-BNP; Complete Time: 00:00 rv 10/21 00:01 Interpretation: Within normal limits: NT PRO-BNP 6. [facility] 10/20 22:04 Order name: PT-INR; Complete Time: 00:00 rv 10/21 00:01 Interpretation: Within normal limits: PT 11.2. [facility] 10/20 22:04 Order name: Troponin (emerg Dept Use Only); Complete Time: 00:00 rv 10/21 00:01 Interpretation: Within normal limits: TROPED < 0.02. [facility] 10/20 22:04 Order name: XRAY Chest (1 view) rv 10/20 22:04 Order name: EKG; Complete Time: 22:05 rv 10/20 22:04 Order name: Cardiac monitoring; Complete Time: 22:15 rv 10/20 22:04 Order name: EKG - Nurse/Tech; Complete Time: 22:15 rv 10/20 22:37 Order name: D-Dimer; Complete Time: 00:00 EDMS 10/21 00:02 Interpretation: Within normal limits: D-DIMER < 215. [facility] 10/20 22:04 Order name: IV Saline Lock; Complete Time: 22:15 rv 10/20 22:04 Order name: Labs collected and sent; Complete Time: 22:15 rv 10/20 22:04 Order name: O2 Per Protocol; Complete Time: 22:15 rv 10/20 22:04 Order name: O2 Sat Monitoring; Complete Time: 22:15 rv EC:01 Rate is 101 beats/min. Rhythm is regular. QRS [place] is Normal. MS interval is normal. tw4 QRS interval is normal. QT interval is normal. No Q waves. T waves are Normal. No ST changes noted. Clinical impression: Sinus tachycardia. Interpreted by me. Reviewed by me. Administered Medications: 10/20 23:04 Drug: TORadol 30 mg Route: IVP; Site: left antecubital; rv 10/21 00:16 Follow up: Response: No adverse reaction rv Disposition: 10/22/19 00:06 Discharged to Home. Impression: Other chest pain. - Condition is Stable. - Discharge Instructions: Nonspecific Chest Pain. - Medication Reconciliation Form, Thank You Letter, Antibiotic Education, Prescription Opioid Use form. - Follow up: Private Physician; When: Upon discharge from the Emergency Department; Reason: Recheck today's complaints, Continuance of care, Re-evaluation by your physician. - Problem is new. - Symptoms have improved. Signatures: Dispatcher [employer] [facility] Bill Hernandez MD MD tw4 Elier Jin RN RN rv Leroy Bean RN RN ll1 Corrections: (The following items were deleted from the chart) 10/20 22:37 22:29 D-DIMER+COAG.LAB.BRZ ordered. [facility] 10/21 00:16 00:06 10/22/2019 00:06 Discharged to Home. Impression: Other chest pain. Condition is rv Stable. Forms are Medication Reconciliation Form, Thank You Letter, Antibiotic Education, Prescription Opioid Use. Follow up: Private Physician; When: Upon discharge from the Emergency Department; Reason: Recheck today's complaints, Continuance of care, Re-evaluation by your physician. Problem is new. Symptoms have improved. tw4
[2019-10-22 00:33] VITALS: BP 118/79; TEMP 98.5; O2SAT 98
--- NOTE | 2019-10-22 07:04 | RAD REPORT ---
EXAM DESCRIPTION: RAD - Chest Single View - 10/21/2019 10:26 pm CLINICAL HISTORY: CHEST PAIN, left side COMPARISON: Portable December 2017 TECHNIQUE: AP portable chest image was obtained 10/21/2019 10:26 pm . FINDINGS: Lungs are clear. Heart and vasculature are normal. No measurable pleural effusion and no p neumothorax. No acute bony abnormality seen. No acute aortic findings suspected. IMPRESSION: No acute cardiopulmonary process. No significant interval change.
== END 2019-10-22 00:16 | disposition home or self-care (01) ==
LOC: ER 20:23
DX: R07.89 Other chest pain (principal); I10 Essential (primary) hypertension; F17.220 Nicotine dependence, chewing tobacco, uncomplicated; Z88.5 Allergy status to narcotic agent
CPT/HCPCS: 36415; 71045; 80048; 80076; 83735; 83880; 84484; 85025; 85379; 85610; 93005; 96374; 99285

== ENCOUNTER 2020-02-24 19:55 | Emergency (ER) | payer SELFPAY ==
--- OUTSIDE RECORDS SUMMARY | 2020-02-24 19:57 | XMS REPORT | Continuity of Care Document ---
:1990 Author Organization [facility] t Address [address] [place] [address] Care Team Providers Name Role Phone Roger [...] Facility Department ID 2018-10-13 2018-10-14 Emergency Roger [facility] [id number] 22:14:33 01:59:00 Judd Erazo [id number] [place] [id number] [place] [id number] Results This patient has no known results.
[2020-02-24] MEDS ORDERED: TETANUS & DIPHTHERIA TOX,ADULT 0.5 ML VIAL ONE (21:09)
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
[2020-02-24] MEDS ORDERED: LIDOCAINE 1% MPF 5 ML VIAL ONE (22:02)
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
[2020-02-24] MEDS ORDERED: CEPHALEXIN 250 MG CAP ONE (22:32)
[2020-02-28 16:10] VITALS: BP 134/94; TEMP 97.6; O2SAT 99
== END 2020-02-24 22:33 | disposition home or self-care (01) ==
LOC: ER 19:55
PROC: 0JQJ0ZZ Repair Right Hand Subcutaneous Tissue and Fascia, Open Approach (ICD-10-PCS; principal; 2020-02-24)
DX: S61.216A Laceration without foreign body of right little finger without damage to nail, initial encounter (principal); W26.0XXA Contact with knife, initial encounter; Y93.9 Activity, unspecified; Y92.9 Unspecified place or not applicable; Z23 Encounter for immunization; Z88.5 Allergy status to narcotic agent; I10 Essential (primary) hypertension; F17.220 Nicotine dependence, chewing tobacco, uncomplicated
CPT/HCPCS: 90471; 90714; 99284

== ENCOUNTER 2020-11-22 16:24 | Emergency (ER) | payer SELFPAY ==
--- OUTSIDE RECORDS SUMMARY | 2020-11-22 16:27 | XMS REPORT | Continuity of Care Document ---
:1990 Author Organization [facility] t Address [address] [place] [address] Care Team Providers Name Role Phone Roger [...] Facility Department ID 2018-10-13 2018-10-14 Emergency Roger [facility] [id number] 22:14:33 01:59:00 Judd Erazo [id number] [place] [id number] [place] [id number] [id number] Results This patient has no known results.
--- NOTE | 2020-11-22 22:49 | EDPHYS ---
Physician Documentation [facility] Name: Paul Patel Age: 30 yrs Sex: Male : 1990 Arrival Date: 11/22/2020 Time: 16:29 Bed Waiting Private MD: ED Physician Real House HPI: 11/22 22:43 This 30 yrs old Male presents to ER via Ambulatory with complaints of No cp taste/smell, Diarrhea, Cough, Shortness Of Breath. 22:43 The patient or guardian reports cough, that is intermittent, with no sputum. Onset: The cp symptoms/episode began/occurred yesterday. Associated signs and symptoms: Pertinent negatives: chest pain, diarrhea, fever, vomiting. Severity of symptoms: in the emergency department the symptoms are unchanged despite home interventions. Patient reports mild exertional shortness of breath, loss of taste and smell that started yesterday. Historical: - Allergies: 17:49 Morphine; aggressivness, hallucinations; aa5 - PMHx: 17:49 Back pain; Chronic pain; Hypertension; Kidney stones; scoliosis; aa5 - Immunization history:: Client reports having NOT received the Covid vaccine. - Social history:: Smoking status: Patient reports the use of cigarette tobacco products, denies chronic smoking, but will smoke occasionally. ROS: 22:44 Eyes: Negative for injury, pain, redness, and discharge. cp 22:44 Constitutional: Negative for body aches, chills, fever, poor PO intake. 22:44 ENT: Negative for ear pain, sore throat, difficulty swallowing, difficulty handling secretions. 22:44 Cardiovascular: Negative for chest pain, palpitations. 22:44 Respiratory: Positive for cough, with no reported sputum, shortness of breath, on exertion. Negative for wheezing. 22:44 Abdomen/GI: Negative for abdominal pain, nausea, vomiting, and diarrhea. 22:44 Neuro: Negative for altered mental status, headache, weakness. 22:44 All other systems are negative. Exam: 22:45 Head/Face: Normocephalic, atraumatic. cp 22:45 Constitutional: The patient appears in no acute distress, alert, awake, non-diaphoretic, non-toxic, well developed, well nourished. 22:45 Eyes: Periorbital structures: appear normal, Conjunctiva: normal, no exudate, no injection, Sclera: no appreciated abnormality, Lids and lashes: appear normal, bilaterally. 22:45 ENT: External ear(s): are unremarkable, Nose: is normal, Mouth: Lips: moist, Oral mucosa: moist, Posterior pharynx: Airway: no evidence of obstruction, patent. 22:45 Neck: ROM/movement: is normal, is supple, no meningismus, no nuchal rigidity. 22:45 Chest/axilla: Inspection: normal, Palpation: is normal, no crepitus, no tenderness. 22:45 Cardiovascular: Rate: tachycardic, Rhythm: regular. 22:45 Respiratory: the patient does not display signs of respiratory distress, Respirations: normal, no use of accessory muscles, no retractions, labored breathing, is not present, intercostal retractions, are absent, Breath sounds: are clear throughout, no decreased breath sounds, no stridor, no wheezing. 22:45 Abdomen/GI: Exam negative for discomfort, distension, guarding, Inspection: abdomen appears normal. Vital Signs: 17:48 BP 136 / 91; Pulse 100; Resp 20 S; Temp 98.6(O); Pulse Ox 100% on R/A; Weight 95.25 kg aa5 (R); Height 5 ft. 8 in. (172.72 cm) (R); 22:55 BP 135 / 88; Pulse 97; Resp 18 S; Temp 97.6(O); Pulse Ox 97% on R/A; bb 17:48 Body Mass Index 31.93 (95.25 kg, 172.72 cm) aa5 MDM: 22:47 Differential diagnosis: bronchitis, flu, URI, COVID-19. influenza. Data reviewed: vital cp signs, nurses notes, lab test result(s), and as a result, I will discharge patient. 22:48 Patient medically screened. cp 11/22 17:51 Order name: Flu; Complete Time: 22:37 aa5 11/22 19:53 Order name: SARS-COV-2 RT PCR; Complete Time: 22:37 EDMS Administered Medications: No medications were administered Disposition: 11/23 05:45 Co-signature as Attending Physician, Real House MD. [email or web address] Disposition Summary: 11/22/20 22:48 Discharge Ordered Location: Home cp Problem: new cp Symptoms: are unchanged cp Condition: Stable cp Diagnosis - SARS-associated coronavirus as the cause of diseases classified elsewhere cp Followup: cp - With: Private Physician - When: 2 - 3 days - Reason: Worsening of condition Discharge Instructions: - Discharge Summary Sheet bb - Form - Excuse from Work, School, or Physical Activity cp - COVID-19 cp - Things to Know about the COVID-19 Pandemic - [facility] cp - 10 Things You Can Do to Manage Your COVID-19 Symptoms at Home - [facility] cp - COVID-19: Quarantine vs. Isolation - [facility] cp - Prevent the Spread of COVID-19 if You Are Sick - [facility] cp Forms: - Work release form bb - Medication Reconciliation Form cp - Thank You Letter cp - Antibiotic Education cp - Prescription Opioid Use cp Signatures: Dispatcher [employer] Brooklyn De Paz RN RN aa5 Gallito Pham PA PA cp Real House MD MD [email or web address] Corrections: (The following items were deleted from the chart) 11/22 18:50 17:51 CORONAVIRUS+MR.LAB.BRZ ordered. EDCT EDMS
--- NOTE | 2020-11-22 22:49 | ER ---
Nurse's Notes [facility] Name: Paul Patel Age: 30 yrs Sex: Male : 1990 Arrival Date: 11/22/2020 Time: 16:29 Bed Waiting Private MD: Diagnosis: SARS-associated coronavirus as the cause of diseases classified elsewhere Presentation: 11/22 17:48 Chief complaint: Patient states: chest congestion, SOB, diarrhea, no sense of aa5 taste/smell that began yesterday. Pt also reports body aches, denies sore throat. Coronavirus screen: chills, congestion, cough unrelated to allergies, diarrhea, muscle pain, shortness of breath. Ebola Screen: Patient denies exposure to infectious person. Initial Sepsis Screen: Does the patient meet any 2 criteria? HR > 90 bpm. Does the patient have a suspected source of infection? No. Patient's initial sepsis screen is negative. Risk Assessment: Do you want to hurt yourself or someone else? Patient reports no desire to harm self or others. Onset of symptoms was November 2020. 17:48 Method Of Arrival: Ambulatory aa5 17:48 Acuity: LOWELL 4 aa5 Historical: - Allergies: 17:49 Morphine; aggressivness, hallucinations; aa5 - PMHx: 17:49 Back pain; Chronic pain; Hypertension; Kidney stones; scoliosis; aa5 - Immunization history:: Client reports having NOT received the Covid vaccine. - Social history:: Smoking status: Patient reports the use of cigarette tobacco products, denies chronic smoking, but will smoke occasionally. Assessment: 11/23 07:21 Reassessment: Patient is alert, oriented x 3, equal unlabored respirations, skin bb warm/dry/pink. pt verbalized understanding of and agrees to plan of care discharge instructions given pt ambulated with steady gait to exit. Vital Signs: 11/22 17:48 BP 136 / 91; Pulse 100; Resp 20 S; Temp 98.6(O); Pulse Ox 100% on R/A; Weight 95.25 kg aa5 (R); Height 5 ft. 8 in. (172.72 cm) (R); 22:55 BP 135 / 88; Pulse 97; Resp 18 S; Temp 97.6(O); Pulse Ox 97% on R/A; bb 17:48 Body Mass Index 31.93 (95.25 kg, 172.72 cm) aa5 ED Course: 16:29 Patient arrived in ED. mr 17:48 Arm band placed on. aa5 17:49 Triage completed. aa5 21:56 Gallito Pham PA is PHCP. cp 21:56 Real House MD is Attending Physician. cp Administered Medications: No medications were administered Outcome: 22:48 Discharge ordered by MD. cp 22:54 Patient left the ED. bb 11/23 07:23 Discharged to home ambulatory. bb Condition: stable Discharge instructions given to patient, Instructed on discharge instructions, follow up and referral plans. Demonstrated understanding of instructions, follow-up care. Signatures: Rosalie Rodriguez mr Clarice Bagley RN RN bb Brooklyn Velazco RN RN aa5 Gallito Pham PA PA cp
[2020-11-22 22:58] VITALS: BP 136/91; TEMP 98.6; O2SAT 100
== END 2020-11-22 22:54 | disposition home or self-care (01) ==
LOC: ER 16:24
DX: U07.1 COVID-19 (principal); I10 Essential (primary) hypertension; F17.210 Nicotine dependence, cigarettes, uncomplicated; Z88.5 Allergy status to narcotic agent
CPT/HCPCS: 87804; 99281; U0003

== ENCOUNTER 2022-11-01 19:37 | Emergency (ER) | payer SELFPAY ==
--- OUTSIDE RECORDS SUMMARY | 2022-11-01 19:41 | XMS REPORT | Continuity of Care Document ---
:1990 Author Organization [facility] t Address [address] [place] [address] Care Team Providers Name Role Phone Pcp, Patient Does Not Have A Primary Care Physician +[id number] Ernst Andrade Attending Clinician Andrzej Churchill MD Attending Clinician SHAQUILLE VALDOVINOS Attending Clinician Unavailable Therapy, [facility] Covid Infusion Attending Clinician Unavailable Shaquille Valdovinos MD Attending Clinician Doctor Unassigned, Ona Attending Clinician Unavailable Cecilia Wade DO Attending Clinician Judd Duran MD Attending Clinician Payers Payer Name Policy Type Policy Number Effective Date Expiration Date [facility] [id number] 2017 PPO/POS 00:00:00 Problems Condition Condition Condition Status Onset Resolution Last Treating Co mments Source Name Details Category Date Date Treatment Clinician Date Neurologic Neurologic Disease Active 2021-03 M ethodi al deficit al deficit 04-26 present present 00:00: Hospita 00 l Clonus Clonus Disease Active 2021-03 Methodi 2-06 st 00:00: Hospita 00 l No known No known Disease Unive rs active active ity of problems problems [facility] Allergies, Adverse Reactions, Alerts Allergy Allergy Status Severity Reaction(s) Onset Inactive Treating Comm ents Source Name Type Date Date Clinician MORPHINE DRUG Active Unknown-Cmnt Un yue INGREDI 12-10 ity of 00:00: [place] 00 Medical Branch Morphine Propensi Active Unknown - Aggressiv Univers ty to See comments 12-10 e ity of adverse 00:00: [place] reaction 00 Medical s Branch Social History Social Habit Start Date Stop Date Quantity Comments Source Exposure to Not sure [facility] SARS-CoV-2 (event) Medica l Branch Gender identity [facility] Sexual orientation Method [facility] Sex Assigned At [birth year] [facility] 00:00:00 00:00:00 Smoking Status Start Date Stop Date Source Tobacco smoking consumption unknown [facility] Medications Ordered Filled Start Stop Current Ordering Indication Dosage Frequency Signature Comments Components Source Medication Medication Date Date Medication? Clinician (SIG) Name Name casirivimab 2020- No [id number] 1200mg 1,200 mg, Univers -imdevimab 11-27 Subcutaneo it y of (REGEN-COV 23:30: 22:17 [place], [place]CE[place] ([place]UA[place] 00 :00 1 dose, Medical injection Anita 11/27/20 Bran ch 1,200 mg at 1830, Routine casirivimab 2020- No [id number] 1200mg 1,200 mg, Univers -imdevimab 11-27 Subcutaneo it y of (REGEN-COV 23:30: 22:17 us, ONCE, [place] (EUA[place] 00 :00 1 dose, Medical injection Anita 11/27/20 Bran ch 1,200 mg at 1830, Routine acetaminoph 2019- No 1{tbl} 1 tablet, Univers en-codeine 10-14 Oral, ity of (TYLENOL 04:30: 03:35 ONCE, 1 [place] #3) 300-30 00 :00 dose, Fri Medi humble mg tablet 1 10/13/18 at Br anch tablet 2330, YASMINE ibuprofen Yes [id number] 800mg Take 1 Un yue 800 mg 7-27 tablet by ity of tablet 00:00: mouth [place] 00 every 8 Medical (eight) Branch hours. traMADol 50 2019-0 Yes [id number] 50mg Take 1 U nivers mg tablet 7-27 tablet by ity o f 00:00: mouth [place] 00 every 6 Medical (six) Branch hours as needed for Pain (scale 4-6). ibuprofen 2019-0 Yes [id number] 800mg Take 1 Un yue 800 mg 7-27 tablet by ity of tablet 00:00: mouth [place] 00 every 8 Medical (eight) Branch hours. traMADol 50 2019-0 Yes [id number] 50mg Take 1 U nivers mg tablet 7-27 tablet by ity o f 00:00: mouth [place] 00 every 6 Medical (six) Branch hours as needed for Pain (scale 4-6). ibuprofen 2019-0 Yes [id number] 800mg Take 1 Un yue 800 mg 7-27 tablet by ity of tablet 00:00: mouth [place] 00 every 8 Medical (eight) Branch hours. traMADol 50 2018-0 Yes [id number] 50mg Take 1 U nivers mg tablet 7-27 tablet by ity o f 00:00: mouth [place] 00 every 6 Medical (six) Branch hours as needed for Pain (scale 4-6). ibuprofen 2019-0 Yes [id number] 800mg Take 1 Un yue 800 mg 7-27 tablet by ity of tablet 00:00: mouth [place] 00 every 8 Medical (eight) Branch hours. traMADol 50 2019-0 Yes [id number] 50mg Take 1 U nivers mg tablet 7-27 tablet by ity o f 00:00: mouth [place] 00 every 6 Medical (six) Branch hours as needed for Pain (scale 4-6). ibuprofen 2019-0 Yes [id number] 800mg Take 1 Un yue 800 mg 7-27 tablet by ity of tablet 00:00: mouth [place] 00 every 8 Medical (eight) Branch hours. traMADol 50 2019-0 Yes [id number] 50mg Take 1 U nivers mg tablet 7-27 tablet by ity o f 00:00: mouth [place] 00 every 6 Medical (six) Branch hours as needed for Pain (scale 4-6). ibuprofen 2019-0 Yes [id number] 800mg Take 1 Un yue 800 mg 7-27 tablet by ity of tablet 00:00: mouth [place] 00 every 8 Medical (eight) Branch hours. traMADol 50 2019-0 Yes [id number] 50mg Take 1 U nivers mg tablet 7-27 tablet by ity o f 00:00: mouth [place] 00 every 6 Medical (six) Branch hours as needed for Pain (scale 4-6). azithromyci 2018-0 Yes 250mg Take 1 Uni vers n 2-18 tablet by ity of (ZITHROMAX 00:00: mouth [place] Z-NOLAN) 250 00 SEE-INSTRU Med ical mg tablet CTIONS. Branch Take 500 mg day 1, then 250 mg days 2 to 5. ibuprofen 2018-0 Yes 800mg Take 1 Unive rs 800 mg 2-18 tablet by ity of tablet 00:00: mouth [place] 00 every 8 Medical (eight) Branch hours as needed for Pain (scale 1-3). acetaminoph 2018-0 Yes 12.5mL Take 12.5 Univers en-codeine 2-18 mL by ity of 120-12 mg/5 00:00: mouth [place] mL 00 every 6 Medical suspension (six) Branch hours as needed for Pain. azithromyci 2018-0 Yes 250mg Take 1 Uni vers n 2-18 tablet by ity of (ZITHROMAX 00:00: mouth [place] Z-NOLAN) 250 00 SEE-INSTRU Med ical mg tablet CTIONS. Branch Take 500 mg day 1, then 250 mg days 2 to 5. ibuprofen 2018-0 Yes 800mg Take 1 Unive rs 800 mg 2-18 tablet by ity of tablet 00:00: mouth [place] 00 every 8 Medical (eight) Branch hours as needed for Pain (scale 1-3). acetaminoph 2018-0 Yes 12.5mL Take 12.5 Univers en-codeine 2-18 mL by ity of 120-12 mg/5 00:00: mouth [place] mL 00 every 6 Medical suspension (six) Branch hours as needed for Pain. azithromyci 2018-0 Yes 250mg Take 1 Uni vers n 2-18 tablet by ity of (ZITHROMAX 00:00: mouth [place] Z-NOLAN) 250 00 SEE-INSTRU Med ical mg tablet CTIONS. Branch Take 500 mg day 1, then 250 mg days 2 to 5. ibuprofen 2018-0 Yes 800mg Take 1 Unive rs 800 mg 2-18 tablet by ity of tablet 00:00: mouth [place] 00 every 8 Medical (eight) Branch hours as needed for Pain (scale 1-3). acetaminoph 2018-0 Yes 12.5mL Take 12.5 Univers en-codeine 2-18 mL by ity of 120-12 mg/5 00:00: mouth [place] mL 00 every 6 Medical suspension (six) Branch hours as needed for Pain. azithromyci 2018-0 Yes 250mg Take 1 Uni vers n 2-18 tablet by ity of (ZITHROMAX 00:00: mouth [place] Z-NOLAN) 250 00 SEE-INSTRU Med ical mg tablet CTIONS. Branch Take 500 mg day 1, then 250 mg days 2 to 5. ibuprofen 2018-0 Yes 800mg Take 1 Unive rs 800 mg 2-18 tablet by ity of tablet 00:00: mouth [place] 00 every 8 Medical (eight) Branch hours as needed for Pain (scale 1-3). acetaminoph 2018-0 Yes 12.5mL Take 12.5 Univers en-codeine 2-18 mL by ity of 120-12 mg/5 00:00: mouth [place] mL 00 every 6 Medical suspension (six) Branch hours as needed for Pain. azithromyci 2018-0 Yes 250mg Take 1 Uni vers n 2-18 tablet by ity of (ZITHROMAX 00:00: mouth [place] Z-NOLAN) 250 00 SEE-INSTRU Med ical mg tablet CTIONS. Branch Take 500 mg day 1, then 250 mg days 2 to 5. ibuprofen 2018-0 Yes 800mg Take 1 Unive rs 800 mg 2-18 tablet by ity of tablet 00:00: mouth [place] 00 every 8 Medical (eight) Branch hours as needed for Pain (scale 1-3). acetaminoph 2018-0 Yes 12.5mL Take 12.5 Univers en-codeine 2-18 mL by ity of 120-12 mg/5 00:00: mouth [place] mL 00 every 6 Medical suspension (six) Branch hours as needed for Pain. azithromyci 2018-0 Yes 250mg Take 1 Uni vers n 2-18 tablet by ity of (ZITHROMAX 00:00: mouth [place] Z-NOLAN) 250 00 SEE-INSTRU Med ical mg tablet CTIONS. Branch Take 500 mg day 1, then 250 mg days 2 to 5. ibuprofen 2018-0 Yes 800mg Take 1 Unive rs 800 mg 2-18 tablet by ity of tablet 00:00: mouth [place] 00 every 8 Medical (eight) Branch hours as needed for Pain (scale 1-3). acetaminoph 2018-0 Yes 12.5mL Take 12.5 Univers en-codeine 2-18 mL by ity of 120-12 mg/5 00:00: mouth [place] mL 00 every 6 Medical suspension (six) Branch hours as needed for Pain. traMADOL 2018-0 Yes 50mg Take 1 Univers (ULTRAM) 50 1-07 tablet by ity of mg tablet 00:00: mouth [place] 00 every 6 Medical (six) Branch hours as needed for Pain (scale 7-10) (for severe pain). traMADOL 2018-0 Yes 50mg Take 1 Univers (ULTRAM) 50 1-07 tablet by ity of mg tablet 00:00: mouth [place] 00 every 6 Medical (six) Branch hours as needed for Pain (scale 7-10) (for severe pain). traMADOL 2018-0 Yes 50mg Take 1 Univers (ULTRAM) 50 1-07 tablet by ity of mg tablet 00:00: mouth [place] 00 every 6 Medical (six) Branch hours as needed for Pain (scale 7-10) (for severe pain). traMADOL 2018-0 Yes 50mg Take 1 Univers (ULTRAM) 50 1-07 tablet by ity of mg tablet 00:00: mouth [place] 00 every 6 Medical (six) Branch hours as needed for Pain (scale 7-10) (for severe pain). traMADOL 2018-0 Yes 50mg Take 1 Univers (ULTRAM) 50 1-07 tablet by ity of mg tablet 00:00: mouth [place] 00 every 6 Medical (six) Branch hours as needed for Pain (scale 7-10) (for severe pain). traMADOL 2018-0 Yes 50mg Take 1 Univers (ULTRAM) 50 1-07 tablet by ity of mg tablet 00:00: mouth [place] 00 every 6 Medical (six) Branch hours as needed for Pain (scale 7-10) (for severe pain). Vital Signs Vital Name Observation Time Observation Value Comments Source Systolic blood 2020-11-27 23:02:00 143 mm[Hg] Univer sity of pressure [place] [facility] Diastolic blood 2020-11-27 23:02:00 84 mm[Hg] Unive rsity of pressure [place] [facility] Heart rate 2020-11-27 23:02:00 108 /min Universi ty of [place] [facility] Body temperature 2020-11-27 23:02:00 36.83 Kelli Univ ersity of [place] [facility] Respiratory rate 2020-11-27 23:02:00 22 /min Univ ersity of [place] [facility] Oxygen saturation in 2020-11-27 23:02:00 97 /min University of Arterial blood by [place] [employer] humble Pulse oximetry Branch Body height 2020-11-27 22:15:00 170.2 cm Universi ty of [place] [facility] Body weight 2020-11-27 22:15:00 88.905 kg Universi ty of [place] [facility] BMI 2020-11-27 22:15:00 30.70 kg/m2 Universi ty of [place] [facility] Oxygen saturation in 2020-11-09 18:40:00 99 /min University of Arterial blood by [facility] Pulse oximetry Branch Systolic blood 2020-11-09 18:40:00 154 mm[Hg] Univer sity of pressure [place] [facility] Diastolic blood 2020-11-09 18:40:00 99 mm[Hg] Unive rsity of pressure [place] [facility] Heart rate 2020-11-09 18:40:00 96 /min Universi ty of [place] [facility] Body temperature 2020-11-09 18:40:00 37.06 Kelli Univ ersity of [place] [facility] Respiratory rate 2020-11-09 18:40:00 14 /min Univ ersity of [place] [facility] Body weight 2020-11-09 18:40:00 90.719 kg Universi ty of [place] [facility] BMI 2020-11-09 18:40:00 32.28 kg/m2 Universi ty of [place] [facility] Systolic blood 2018-10-14 03:11:00 142 mm[Hg] Univer sity of pressure [place] [facility] Diastolic blood 2018-10-14 03:11:00 79 mm[Hg] Unive rsity of pressure [place] [facility] Heart rate 2018-10-14 03:11:00 81 /min Universi ty of [place] [facility] Body temperature 2018-10-14 03:11:00 36.83 Kelli Univ ersity of [place] [facility] Respiratory rate 2018-10-14 03:11:00 18 /min Univ ersity of [place] [facility] Body weight 2018-10-14 03:11:00 87.544 kg Universi ty of [place] [facility] BMI 2018-10-14 03:11:00 31.15 kg/m2 Universi ty of [place] [facility] Oxygen saturation in 2018-10-14 03:11:00 97 /min University of Arterial blood by [facility] Pulse oximetry Branch Systolic blood 2018-10-14 03:11:00 142 mm[Hg] Univer sity of pressure [place] [facility] Diastolic blood 2018-10-14 03:11:00 79 mm[Hg] Unive rsity of pressure [place] [facility] Heart rate 2018-10-14 03:11:00 81 /min Universi ty of [place] [facility] Body temperature 2018-10-14 03:11:00 36.83 Kelli Univ ersity of [place] [facility] Respiratory rate 2018-10-14 03:11:00 18 /min Univ ersity of [place] [facility] Body weight 2018-10-14 03:11:00 87.544 kg Universi ty of [place] [facility] BMI 2018-10-14 03:11:00 31.15 kg/m2 Universi ty of [place] [facility] Oxygen saturation in 2018-10-14 03:11:00 97 /min University of Arterial blood by [facility] Pulse oximetry Branch Procedures Procedure Date / Time Performed Performing Clinician Sourc e XR LUMBAR SPINE 2 OR 2022-02-23 15:25:56 Andrzej Churchill [facility] 3 VW [id number] CONSENT 2020-11-27 05:01:00 [facility]igned[facility]SENT[facility]REFUSAL FOR 2020-11-09 18:36:43 Doctor Unassigned, No Un iversity of [place] DIAGNOSIS AND Name Medical Branch TREATMENT NOTICE OF PRIVACY 2020-11-09 18:36:24 Doctor Unassigned, No [facility] Branch XR LUMBAR SPINE 2 VW 2018-10-14 04:07:32 Judd Duran [facility] [place] [facility] XR KNEE 3 VW RIGHT 2018-10-14 04:07:[address] [facility] y of [facility] CONSENT/REFUSAL FOR 2018-10-14 02:59:41 Doctor Unassigned, No Un iversity of [place] DIAGNOSIS AND Name Medical Branch TREATMENT Plan of Care Planned Activity Planned Date Details Comments Source Future Scheduled 2022-10-18 COVID-[address] [facility] Test 08:53:16 (#1) [code = COVID-19 VACCINE (#1)] Future Scheduled 2022-10-18 [facility] 08:53:16 screening (procedure) [code = 291918863] Future Scheduled 2022-10-18 [facility]FLUENZA [facility]ACCINE [facility] 08:53:16 [code = INFLUENZA VACCINE] Encounters Start End Encounter Admission Attending Care Care Encounter Source Date/Time Date/Time Type Type Clinicians Facility Department ID 2022-04-27 2022-04-27 Ambulatory MHJORGE DCMaurice [id number] [facility] 17:30:00 17:30:00 Pre-Reg Neurology 00 l Indy Scales 2022-04-27 2022-04-27 Outpatient MIKE AndradeSCHAGATA [id number] 11:30:00 11:30:00 Ernst Presley Medley 2022-04-20 2022-04-20 Outpatient ABHIJIT LACEY [id number] [facility] 14:00:00 14:00:00 00 l Yordy 2022-02-23 2022-02-23 Office Andrzej Churchill 1.2.840.1 [id number] Methodi 08:30:00 10:53:[address] 3.430.2.7 Hospit a .3.746710 l .8 2022-02-23 2022-02-23 Travel 1.2.840.1 [id number] Methodi 00:00:00 00:00:[address] 3.430.2.7 0.2.7.3.698 Ho spita .3.701002 084.8 l .8 2022-02-23 2022-02-23 Outpatient ANDRZEJ CHURCHILL [facility] [id number] [place] 00:00:00 00:00:[address] 2022-02-23 2022-02-23 Outpatient ANDRZEJ CHURCHILL [facility] [id number] [place] 00:00:00 00:00:[address] 2022-02-04 2022-02-04 Travel 1.2.840.1 [id number] Methodi 00:00:00 00:00:00 55410.1.1 350.1.13.43 762 3.430.2.7 0.2.7.3.698 Ho spita .3.054512 084.8 l .8 2020-11-27 2020-11-27 Outpatient R MIGUEL [facility] [id number] Univers 17:00:00 17:00:00 SHAQUILLE itaria of [facility] 2020-11-27 2020-11-27 Nurse Therapy, Adc Covid Infusion [facility] 1.2.840.114 [id number] Univers 14:01:52 15:01:52 Visit Shaquille Valdovinos 350.1.13.10 ity of [place] 4.2.7.2.686 [facility] [phone] [facility] 053 Branch 2020-11-27 2020-11-27 Orders Doctor DARRELL 1.2.840.114 [id number] Univers 00:00:00 00:00:00 Only Unassigned, ARMEN 350.1.13.10 ity of [place] [facility] 4.2.7.2.686 [facility] [id number] [facility] 009 Branch 2020-11-09 2020-11-09 [facility] 1.2.840.114 [id number] Univers 13:40:00 14:49:00 Cecilia Erazo 350.1.13.10 i ty of [place] 4.2.7.2.686 [facility] [id number] [facility] 0[address] [place] 2020-11-09 2020-11-09 Emergency X [facility] ERT [id number] Univers 13:35:00 13:35:00 ity of [facility] 2018-10-13 2018-10-14 [facility] [id number] Univers 22:14:33 01:59:00 Judd Erazo 350.1.13.10 i ty of [place] 4.2.7.2.686 [facility] [id number] [address] 2018-10-13 2018-10-14 Emergency Roger, [facility] 1.2.975.000 [id number] 22:14:33 01:59:00 Judd Erazo 350.1.13.10 Kellie 4.2.7.2.686 [place] [id number] Results Test Description Test Time Test Comments Results Result Sourc e Comments XR LUMBAR SPINE 2018-09-19 EXAM: XR LUMBAR Univ ersity of 2 VW 7 SPINE 2 VW HISTORY: [facility] 04:46:37 pain s/p fall Branch COMPARISON: None FINDINGS: Frontal and lateral radiographs of the lumbar spine were performed. Grade 1 retrolisthesis of L5 over S1 is noted. The vertebral bodies areotherwise normal in height and alignment. No acute fracture or subluxation. Cortical irregularity of the inferior endplate of L5 may representSchmorl's node, fracture is less likely possibility. Clinical correlationwith point of tenderness is recommended. Disc spaces are preserved. The paraspinal soft tissues are unremarkable. Intact cortical margins of the visualized sacrum and pelvic bones. Domenico David MD., have reviewed this study and agree with the abovereport.[facility], Radiant Results Inft User - 10/13/2018 11:46 PM CDTEXAM: XR LUMBAR SPINE 2 VWHISTORY: pain s/p fall COMPARISON: NoneFINDINGS:Frontal and lateral radiographs of the lumbar spine were performed.Grade 1 retrolisthesis of L5 over S1 is noted. The vertebral bodies areotherwise normal in height and alignment. No acute fracture or subluxation.Cortical irregularity of the inferior endplate of L5 may representSchmorl's node, fracture is less likely possibility. Clinical correlationwith point of tenderness is recommended.Disc spaces are preserved.The paraspinal soft tissues are unremarkable.Intact cortical margins of the visualized sacrum and pelvic bones.Domenico David MD., have reviewed this study and agree with the abovereport.
--- NOTE | 2022-11-01 20:33 | RAD REPORT ---
EXAM DESCRIPTION: RAD - Foot Right 3 View - 11/01/2022 8:17 pm CLINICAL HISTORY: PAIN COMPARISON: <Comparisons> FINDINGS: There is a transverse fracture involving the base of the fifth metatarsal. This may be sec ondary to stress injury. Elsewhere, no fracture or dislocation seen.
--- NOTE | 2022-11-01 20:52 | ER ---
Nurse's Notes [facility] Name: Paul Patel Age: 31 yrs Sex: Male : 1990 Arrival Date: 11/01/2022 Time: 19:37 Bed DIS3 Private MD: Diagnosis: Nondisplaced fracture of fifth metatarsal bone, right foot Presentation: 11/01 19:50 Chief complaint: Patient states: "Today, I was playing around with my kids and landed mb9 wrong on right ankle". Coronavirus screen: At this time, the client does not indicate any symptoms associated with coronavirus-19. Ebola Screen: No symptoms or risks identified at this time. Initial Sepsis Screen: Does the patient meet any 2 criteria? No. Patient's initial sepsis screen is negative. Does the patient have a suspected source of infection? No. Patient's initial sepsis screen is negative. Risk Assessment: Do you want to hurt yourself or someone else? Patient reports no desire to harm self or others. Onset of symptoms was November 01, 2022. 19:50 Method Of Arrival: Ambulatory mb9 19:50 Acuity: LOWELL 4 mb9 Triage Assessment: 19:52 General: Appears in no apparent distress. Behavior is calm, cooperative. Pain: mb9 Complains of pain in right foot Pain radiates to right leg Quality of pain is described as aching, throbbing, Pain began suddenly, Is continuous. Neuro: Gray Agitation-Sedation Scale (RASS): 0 - Alert and Calm Level of Consciousness is awake, alert, obeys commands, Oriented to person, place, time, situation, Appropriate for age. Cardiovascular: Patient's skin is warm and dry. Respiratory: Airway is patent Respiratory effort is even, unlabored, Respiratory pattern is regular, symmetrical. GI: No signs and/or symptoms were reported involving the gastrointestinal system. : No signs and/or symptoms were reported regarding the genitourinary system. Derm: Skin is pink, warm \\T\\ dry. Musculoskeletal: Range of motion: limited in right ankle. Historical: - Allergies: 19:52 Morphine; aggressivness, hallucinations; mb9 - Home Meds: 19:52 None [Active]; mb9 - PMHx: 19:52 Back pain; Chronic pain; Hypertension; Kidney stones; scoliosis; mb9 - PSHx: 19:52 Unable to Obtain; mb9 - Immunization history:: Adult Immunizations up to date. - Social history:: Smoking status: Patient reports the use of cigarette tobacco products, denies chronic smoking, but will smoke occasionally. Screenin:53 [facility] ED Fall Risk Assessment (Adult) History of falling in the last 3 months, mb9 including since admission Yes- single mechanical fall (1 pt) Confusion or Disorientation No (0 pts) Intoxicated or Sedated No (0 pts) Impaired Gait Yes (1 pt) Mobility Assist Device Used No (0 pt) Altered Elimination No (0 pt) Score/Fall Risk Level 0 - 2 = Low Risk Oriented to surroundings, Maintained a safe environment, Educated pt \\T\\ family on fall prevention, incl call for assistance when getting out of bed. Abuse screen: Denies threats or abuse. Nutritional screening: No deficits noted. Tuberculosis screening: No symptoms or risk factors identified. Assessment: 21:09 Reassessment: No changes from previously documented assessment. Patient and/or family mb9 updated on plan of care and expected duration. Pain level reassessed. Patient is alert, oriented x 3, equal unlabored respirations, skin warm/dry/pink. Vital Signs: 19:50 BP 156 / 95; Pulse 103; Resp 18; Temp 98.9; Pulse Ox 100% on R/A; Weight 92.08 kg; mb9 Height 5 ft. 8 in. ; Pain 0/10; 19:50 Body Mass Index 30.87 (92.08 kg, 172.72 cm) mb9 19:50 Pain Scale: Adult mb9 ED Course: 19:41 Patient arrived in ED. ag3 19:45 Olga Luevano FNP-C is [facility]. kb 19:45 Gallito Beard MD is Attending Physician. kb 19:50 Arm band placed on. mb9 19:52 Triage completed. mb9 19:54 Call light in reach. mb9 19:54 No provider procedures requiring assistance completed. Patient did not have IV access mb9 during this emergency room visit. 20:19 Foot Right 3 View XRAY In Process Unspecified. EDMS Administered Medications: No medications were administered Medication: 19:53 VIS not applicable for this client. mb9 Outcome: 20:52 Discharge ordered by . kb 21:20 Discharged to home ambulatory. mb9 21:20 Condition: stable 21:20 Discharge instructions given to patient, Instructed on discharge instructions, follow up and referral plans. Demonstrated understanding of instructions, follow-up care, medications, Prescriptions given X 1. 21:20 Patient left the ED. mb9 Signatures: Dispatcher [employer] EDOlga Greer, MATERIAL HANDLER LOADER-C MATERIAL HANDLER LOADER-Rere Wylie ag3 Rosalie Mccormackh, RN RN mb9
--- NOTE | 2022-11-01 20:52 | EDPHYS ---
Physician Documentation [facility] Name: Paul Patel Age: 31 yrs Sex: Male : 1990 Arrival Date: 11/01/2022 Time: 19:37 Bed DIS3 Private MD: ED Physician Gallito Beard HPI: 11/01 23:43 This 31 yrs old Male presents to ER via Ambulatory with complaints of Foot Injury. kb 23:43 The patient presents with pain. The complaints affect the lateral side of right foot. kb Context: The problem was sustained at home, resulted from playing with kids. Onset: The symptoms/episode began/occurred today. Modifying factors: The symptoms are alleviated by nothing. the symptoms are aggravated by weight bearing. Associated signs and symptoms: The patient has no apparent associated signs or symptoms. Treatment prior to arrival includes: no previous treatment. Severity of symptoms: At their worst the symptoms were moderate, in the emergency department the symptoms are unchanged. The patient has not experienced similar symptoms in the past. The patient has not recently seen a physician. Historical: - Allergies: 19:52 Morphine; aggressivness, hallucinations; mb9 - Home Meds: 19:52 None [Active]; mb9 - PMHx: 19:52 Back pain; Chronic pain; Hypertension; Kidney stones; scoliosis; mb9 - PSHx: 19:52 Unable to Obtain; mb9 - Immunization history:: Adult Immunizations up to date. - Social history:: Smoking status: Patient reports the use of cigarette tobacco products, denies chronic smoking, but will smoke occasionally. ROS: 23:42 Constitutional: Negative for fever, chills, and weight loss. kb 23:42 MS/extremity: Positive for pain, of the lateral side of right foot. 23:42 All other systems are negative. Exam: 23:42 Constitutional: This is a well developed, well nourished patient who is awake, alert, kb and in no acute distress. Head/Face: Normocephalic, atraumatic. ENT: Moist Mucous membranes Cardiovascular: Regular rate and rhythm with a normal S1 and S2. No gallops, murmurs, or rubs. No pulse deficits. Respiratory: Respirations even and unlabored. No increased work of breathing. Talking in full sentences Skin: Warm, dry with normal turgor. Normal color. Neuro: Awake and alert, GCS 15, oriented to person, place, time, and situation. Moves all extremities. Normal gait. 23:42 Musculoskeletal/extremity: Extremities: grossly normal except: noted in the lateral side of right foot: pain, tenderness, ROM: intact in all extremities, Circulation is intact in all extremities. Sensation intact. Weight bearing: can bear weight with assistance only, uses crutches. Vital Signs: 19:50 BP 156 / 95; Pulse 103; Resp 18; Temp 98.9; Pulse Ox 100% on R/A; Weight 92.08 kg; mb9 Height 5 ft. 8 in. ; Pain 0/10; 19:50 Body Mass Index 30.87 (92.08 kg, 172.72 cm) mb9 19:50 Pain Scale: Adult mb9 MDM: 19:45 Patient medically screened. kb 23:42 Differential diagnosis: dislocation, closed fracture, contusion. Data reviewed: vital kb signs, nurses notes. Counseling: I had a detailed discussion with the patient and/or guardian regarding: the historical points, exam findings, and any diagnostic results supporting the discharge/admit diagnosis, radiology results, the need for outpatient follow up, a family practitioner, to return to the emergency department if symptoms worsen or persist or if there are any questions or concerns that arise at home. 11/01 19:48 Order name: Foot Right 3 View XRAY; Complete Time: 20:50 kb 11/01 20:50 Order name: Post-op Orthopedic Shoe kb Administered Medications: No medications were administered Disposition Summary: 11/01/22 20:52 Discharge Ordered Location: Home kb Condition: Stable kb Diagnosis - Nondisplaced fracture of fifth metatarsal bone, right foot kb Followup: kb - With: Emergency Department - When: As needed - Reason: Worsening of condition Followup: kb - With: Private Physician - When: 2 - 3 days - Reason: Recheck today's complaints, Continuance of care, Re-evaluation by your physician Discharge Instructions: - Discharge Summary Sheet kb - Metatarsal Fracture kb Forms: - Medication Reconciliation Form kb - Thank You Letter kb - Antibiotic Education kb - Prescription Opioid Use kb - Patient Portal Instructions kb - Leadership Thank You Letter kb - Work release form vc1 Prescriptions: - Diclofenac Sodium 75 mg Oral tablet,delayed release (DR/EC) - take 1 tablet by ORAL route 2 times per day As needed; 30 tablet; Refills: 0, kb Product Selection Permitted Signatures: Dispatcher [employer] Olga Fritz, LONG WINDER TENDERRosalie Gibbons, RN RN mb9
[2022-11-01 21:41] VITALS: BP 156/95; TEMP 98.9; O2SAT 100
== END 2022-11-01 21:20 | disposition home or self-care (01) ==
LOC: ER 19:37
DX: S92.354A Nondisplaced fracture of fifth metatarsal bone, right foot, initial encounter for closed fracture (principal)
CPT/HCPCS: 99283

== ENCOUNTER 2023-02-05 19:05 | Emergency (ER) | payer SELFPAY ==
--- OUTSIDE RECORDS SUMMARY | 2023-02-05 19:09 | XMS REPORT | Continuity of Care Document ---
:1990 Author Organization [facility] t Address [address] [place] [address] Care Team Providers Name Role Phone Asked, No Pcp Primary Care Physician Unavailable Ernst Andrade Attending Clinician Zhao HER, Andrzej Up Attending Clinician SHAQUILLE VALDOVINOS Attending Clinician Unavailable Therapy, Adc Covid Infusion Attending Clinician Unavailable Shaquille Valdovinos MD Attending Clinician Doctor Unassigned, [place] Attending Clinician Unavailable Cecilia Wade DO Attending Clinician Judd Duran MD Attending Clinician Payers Payer Name Policy Type Policy Number Effective Date Expiration Date [facility] [id number] 2017 PPO/POS 00:00:00 Problems Condition Condition Condition Status Onset Resolution Last Treating Co mments Source Name Details Category Date Date Treatment Clinician Date Clonus Clonus Disease Active 2021-03 Methodi 04-26 00:00: Hosp[facility] 00 l Neurologic Neurologic Disease Active 2021-03 M ethodi al deficit al deficit 04-26 present present 00:00: Hospita 00 l No known No known Disease Unive rs active active ity of problems problems [facility] Allergies, Adverse Reactions, Alerts Allergy Allergy Status [...] Quantity Comments Source Exposure to Not sure [facility] SARS-CoV-2 (event) Medica l Branch Sexual orientation Method [facility] Gender identity [facility] Sex Assigned At [birth year] Met [facility] 00:00:00 00:00:00 Smoking Status Start Date Stop Date Source Tobacco smoking consumption unknown [facility] Medications Ordered Filled Start Stop Current Ordering Indication Dosage Frequency Signature Comments Components Source Medication Medication Date Date Medication? Clinician (SIG) Name Name casirivimab 2020- No [id number] 1200mg 1,200 mg, Univers -imdevimab 11-27 Subcutaneo it y of (REGEN-COV 23:30: 22:17 [place], [place]CE, [place] (EUA[place] 00 :00 1 dose, Medical injection Anita 11/27/20 Bran ch 1,200 mg at 1830, Routine casirivimab 2020- No [id number] 1200mg 1,200 mg, Univers -imdevimab 11-27 Subcutaneo it y of (REGEN-COV 23:30: 22:17 us, ONCE, [place] (EUA)) 00 :00 1 dose, Medical injection Anita 11/27/20 Bran ch 1,200 mg at 1830, Routine acetaminoph 2019- No 1{tbl} 1 tablet, [facility] en-codeine 10-14- Oral, ity of (TYLENOL 04:30: 03:35 ONCE, 1 [place] #3) 300-30 00 :00 dose, Fri Medi humble mg tablet 1 10/13/18 at Br anch tablet 2330, YASMINE ibuprofen Yes [id number] 800mg Take 1 Un yue 800 mg 7-27 tablet by ity of tablet 00:00: mouth [place] 00 every 8 Medical (eight) Branch hours. traMADol 50 2019-0 Yes [id number] 50mg Take 1 U nivers mg tablet 7-27 tablet by ity o f 00:00: mouth [place] 00 every 6 Medical (six) Branch hours as needed for Pain (scale 4-6). ibuprofen 2019-0 Yes [id number] 800mg Take 1 Un yue 800 mg 7-27 tablet by ity of tablet 00:00: mouth [place] 00 every 8 Medical (eight) Branch hours. traMADol 50 2019-0 Yes [id number] 50mg Take 1 U nivers mg tablet 7-27 tablet by ity o f 00:00: mouth [place] 00 every 6 Medical (six) Branch hours as needed for Pain (scale 4-6). ibuprofen 2019-0 Yes [id number] 800mg Take 1 Un yue 800 mg 7-27 tablet by ity of tablet 00:00: mouth [place] 00 every 8 Medical (eight) Branch hours. traMADol 50 2019-0 Yes [id number] 50mg Take 1 U nivers mg tablet 7-27 tablet by ity o f 00:00: mouth [place] 00 every 6 Medical (six) Branch hours as needed for Pain (scale 4-6). ibuprofen 2019-0 Yes [id number] 800mg Take 1 Un yue 800 mg 7-27 tablet by ity of tablet 00:00: mouth [place] 00 every 8 Medical (eight) Branch hours. traMADol 50 2019-0 Yes [id number] 50mg Take 1 U nivers mg tablet 7-27 tablet by ity o f 00:00: mouth [place] 00 every 6 Medical (six) Branch hours as needed for Pain (scale 4-6). ibuprofen 2019-0 Yes [id number] 800mg Take 1 Un yue 800 mg 7-27 tablet by ity of tablet 00:00: mouth [place] 00 every 8 Medical (eight) Branch hours. traMADol 50 2019-0 Yes [id number] 50mg Take 1 U nivers mg tablet 7-27 tablet by ity o f 00:00: mouth [place] 00 every 6 Medical (six) Branch hours as needed for Pain (scale 4-6). ibuprofen 2019-0 Yes [id number] 800mg Take 1 Un yue 800 mg 7-27 tablet by ity of tablet 00:00: mouth [place] 00 every 8 Medical (eight) Branch hours. traMADol 50 2018-0 Yes [id number] 50mg Take 1 U nivers mg tablet [...] 23:02:00 143 mm[Hg] Univer sity of pressure [facility] Diastolic blood 2020-11-27 23:02:00 84 mm[Hg] Unive rsity of pressure [facility] Heart rate 2020-11-27 23:02:00 108 /min [facility] [place] [facility] Body temperature 2020-11-27 23:02:00 36.83 Kelli [facility] [place] [facility] Respiratory rate 2020-11-27 23:02:00 22 /min [facility] [place] [facility] Oxygen saturation in 2020-11-27 23:02:00 97 /min University of Arterial blood by [facility] Pulse oximetry Branch Body height 2020-11-27 22:15:00 170.2 cm [facility] [place] [facility] Body weight 2020-11-27 22:15:00 88.905 kg [facility] [place] [facility] BMI 2020-11-27 22:15:00 30.70 kg/m2 [facility] [place] [facility] Systolic blood 2020-11-09 18:40:00 154 mm[Hg] Univer sity of pressure [place] [facility] Diastolic blood 2020-11-09 18:40:00 99 mm[Hg] Unive rsity of pressure [place] [facility] Heart rate 2020-11-09 18:40:00 96 /min [facility] [place] [facility] Body temperature 2020-11-09 18:40:00 37.06 Kelli [facility] [place] [facility] Respiratory rate 2020-11-09 18:40:00 14 /min [facility] [place] [facility] Body weight 2020-11-09 18:40:00 90.719 kg [facility] [place] [facility] BMI 2020-11-09 18:40:00 32.28 kg/m2 [facility] [place] [facility] Oxygen saturation in 2020-11-09 18:40:00 99 /min University of Arterial blood by [facility] Pulse oximetry Branch Systolic blood 2018-10-14 03:11:00 142 mm[Hg] Univer sity of pressure [place] [facility] Diastolic blood 2018-10-14 03:11:00 79 mm[Hg] Unive rsity of pressure [place] [facility] Heart rate 2018-10-14 03:11:00 81 /min [facility] [place] [facility] Body temperature 2018-10-14 03:11:00 36.83 Kelli [facility] [place] [facility] Respiratory rate 2018-10-14 03:11:00 18 /min [facility] [place] [facility] Body weight 2018-10-14 03:11:00 87.544 kg [facility] [place] [facility] BMI 2018-10-14 03:11:00 31.15 kg/m2 [facility] [place] [facility] Oxygen saturation in 2018-10-14 03:11:00 97 /min University of Arterial blood by [facility] Pulse oximetry Branch Systolic blood 2018-10-14 03:11:00 142 mm[Hg] Univer sity of pressure [place] [facility] [place] Diastolic blood 2018-10-14 03:11:00 79 mm[Hg] Unive rsity of pressure [place] [facility] Heart rate 2018-10-14 03:11:00 81 /min [facility] [place] [facility] [place] Body temperature 2018-10-14 03:11:00 36.83 Kelli [facility] [place] [facility] [place] Respiratory rate 2018-10-14 03:11:00 18 /min [facility] [place] [facility] Body weight 2018-10-14 03:11:00 87.544 kg [facility] [place] [facility] BMI 2018-10-14 03:11:00 31.15 kg/m2 Universi ty [facility] Medical Branch Oxygen saturation in 2018-10-14 03:11:00 97 /min University of Arterial blood by [facility] Pulse oximetry Branch Procedures Procedure Date / Time Performed Performing Clinician Sourc e XR LUMBAR SPINE 2 OR 2022-02-23 15:25:[address] [facility] 3 VW [id number] CONSENT 2020-11-27 05:01:00 Doctor Unassigned, No Unive rsity of [facility] Medical Branch CONSENT/REFUSAL FOR 2020-11-09 18:36:43 Doctor Unassigned, No [facility] [place] DIAGNOSIS AND Name Medical Branch TREATMENT NOTICE OF PRIVACY 2020-11-09 18:36:24 Doctor Unassigned, No [facility] [place] PRACTICES Name Medical Branch XR LUMBAR SPINE 2 VW 2018-10-14 04:07:32 Judd Duran [facility] ity [facility] XR KNEE 3 VW RIGHT 2018-10-14 04:07:32 Judd Duran [facility] y of [facility] CONSENT/REFUSAL FOR 2018-10-14 02:59:41 Doctor Unassigned, No Un [facility] [place] DIAGNOSIS AND Name Medical Branch TREATMENT Plan of Care Planned Activity Planned Date Details Comments Source Future Scheduled 2023-01-16 COVID-19 VACCINE Methodi [facility] Test 12:37:32 (#1) [code = COVID-19 VACCINE (#1)] Future Scheduled 2023-01-16 [facility] 12:37:32 screening (procedure) [code = 929956149] Future Scheduled 2023-01-16 INFLUENZA VACCINE [facility] Test 12:37:32 (#1) [code = INFLUENZA VACCINE (#1)] Future Scheduled 2022-10-18 COVID-19 VACCINE Methodi [facility] Test 08:53:16 (#1) [code = COVID-19 VACCINE (#1)] Future Scheduled 2022-10-18 [facility] Test 08:53:16 screening (procedure) [code = 508961601] Future Scheduled 2022-10-18 INFLUENZA VACCINE [facility] Test 08:53:16 [code = INFLUENZA VACCINE] Encounters Start End Encounter Admission Attending Care Care Encounter Source Date/Time Date/Time Type Type Clinicians Facility Department ID 2022-04-27 2022-04-27 Ambulatory [facility] JED [id number] 17:30:00 17:30:00 Pre-Reg Neurology 00 l Indy Scales 2022-04-27 2022-04-27 [id number] 11:30:00 11:30:00 Ernst 00 Galindo 2022-04-20 2022-04-20 Outpatient ABHIJIT LACEY [id number] 14:00:00 14:00:00 00 jerald Scales 2022-02-23 2022-02-23 Office Andrzej Churchill 1.2.840.1 [id number] Methodi 08:30:00 10:53:[address] 3.430.2.7 Hospit a .3.079525 l .8 2022-02-23 2022-02-23 Office Andrzej Churchill 1.2.840.1 [id number] Methodi 08:30:00 10:53:[address]1.[address] 3.430.2.7 Hospit a .3.437265 l .8 2022-02-23 2022-02-23 Outpatient ANDRZEJ CHURCHILL [facility] [id number] [place] 00:00:00 00:00:[address] 2022-02-23 2022-02-23 Travel 1.2.840.1 [id number] [id number] Methodi 00:00:00 00:00:[address] 3.430.2.7 0.2.7.3.698 Ho spita .3.558204 084.8 l .8 2022-02-23 2022-02-23 Travel 1.2.840.1 1.2.827.348 [id number] Methodi 00:00:00 00:00:[address] 3.430.2.7 0.2.7.3.698 Ho spita .3.068874 084.8 l .8 2022-02-04 2022-02-04 Travel 1.2.840.1 1.2.672.656 [id number] Methodi 00:00:00 00:00:[address] 3.430.2.7 0.2.7.3.698 Ho spita .3.926245 084.8 l .8 2020-11-27 2020-11-27 Outpatient Celine VALDOVINOS [facility] [id number] Univers 17:00:00 17:00:00 SHAQUILLE cooper of [facility] 2020-11-27 2020-11-27 Nurse Therapy, Adc Covid Infusion [facility] 1.2.840.114 [id number] Univers 14:01:52 15:01:52 Visit Shaquille Valdovinos 350.1.13.10 ity of [place] 4.2.7.2.686 [facility] [id number] [place] [id number] Branch 2020-11-27 2020-11-27 Orders Doctor DARRELL 1.2.840.114 [id number] Univers 00:00:00 00:00:00 Only Unassigned, ARMEN 350.1.13.10 ity of [place] [facility] 4.2.7.2.686 [facility] [id number] [place] [address] Branch 2020-11-09 2020-11-09 Emergency Sheri [facility] 1.2.840.114 [id number] Univers 13:40:00 14:49:00 Cecilia [place] 350.1.13.10 i ty of [place] 4.2.7.2.686 [facility] [phone] [place] 526574 Branch 2020-11-09 2020-11-09 Emergency X [facility] ERT [id number] Univers 13:35:00 13:35:00 ity of [facility] 2018-10-13 2018-10-14 [facility] 1.2.857.528 [id number] 22:14:33 01:59:00 Judd Erazo 350.1.13.10 [place] 4.2.7.2.686 [place] [id number] [facility] 2018-10-13 2018-10-14 [facility] 1.2.855.723 [id number] [facility] 22:14:33 01:59:00 Judd Erazo 350.1.13.10 i ty of [place] 4.2.7.2.[address] [place] [phone] Results Test Description Test Time Test Comments Results Result Comments Source MUMPS IgG AND IgM 2022-11-25 21:25:47 Test Item Value Reference Range Interpretation Comme nts MUMPS VIRUS IgG (test code 192.0 AU/mL I NTERPRETIVE INFORMATION: Mumps = 77028) Ab, IgG by AICHA 8.9 AU/mL or less .... Negative - No significant level of detect able IgG mumps virus antibody 9.0-10.9 AU/mL ....... Equivoc al - Repeat testing in 10-1 4 days may be helpful 11.0 AU /mL or greater: Positive - IgG antibody to mumps virus detected, which may indicate a curr ent or past exposure/ immun ization to mumps virus. The best evidence for current infecti on is a significant oscar nge on two appropriately t imed specimens, where both test s are done in the same laboratory at the same time. TESTING PERFORM ED AT [facility], [facility] [address], [place] [address] [place]. [id number] CLIA NO. [id number] MUMPS VIRUS IgM (test code 0.25 IV See_Comment I NTERPRETIVE INFORMATION: Mumps = 4587) Virus Antibody, IgM 0.79 IV or less: Negative - No significant level of detect able IgM antibody to mumps virus . 0.80 - 1.20 IV: Equivocal - Bor derline levels of IgM antibody to mumps virus. Repeat testing in 10-14 days may be helpful. 1.2 1 IV or greater: Positive - Pres ence of IgM antibody to mum ps virus detected, which may indic ate a current or recent infectio n. However, low levels of IgM a ntibody may occasionally pe rsist for more than 12 months post-infection or immunization. T ESTING PERFORMED AT [facility], [facility] [address], [place] [address] [place]. [id number] CL [place] NO. [id number] [Automated mess age] The system which generated this result transmitted ref erence range: <=0.79. The ref erence range was not used to int erpret this result as normal/abnor mal. RUBEOLA AB, [id number] 13:34:39 Test Item Value Reference Range Interpretation Comments RUBEOLA AB, IgG 128.0 AU/ML SEE BELOW INTERPRETAT ION UNITS (test code = RANGE --------- ----- 00994) ----- ----- NEG ATIVE AU/ML <13.5 EQ UIVOCAL AU/ML 13.5-16.4 NOTE: CONSIDER RETEST ING IN A CLINICALLY SUIT ABLE PERIOD OF TIME, NO SOONER THAN 1-2 WEEKS. POSITIVE AU/ML >=16.5 VARICELLA ZOSTER [id number] 13:34:39 Test Item Value Reference Range Interpretation Comments VARICELLA ZOSTER IgG 711 INDEX SEE BELOW INTERP RETATION VZV IgG (test code = 95737) NEGATIVE . . . . . . . . . . . . INDEX < 135 EQUIVOCAL. . . . . . . . . . . . INDEX 1 35-164 NOTE: CONSIDER RETESTING IN A CLINICALLY SUITABLE PERIOD OF TIME, NO SOONER THAN 1-2 WEEKS. POSITIVE . . . . . . . . . . . . INDEX > =165 UNLESS OTHERWIS E INDICATED, ALL TESTING PERFORMED AT [facility], [facility]. [address] [place] [address] 4 LABORATORY DIRE CTOR: CARROLL SENA M.D. [place] NUMBER [id number] [facility] [place] [place]. [id number] HEPATITIS A TOTAL AB REFLEX TO [id number] 06:52:46 Test Item Value Reference Range Interpretation Comments HEPATITIS A TOTAL AB (test code NON-REACTIVE NON-REACTIVE = 2725) HEPATITIS B SURFACE [id number] 06:52:46 Test Item Value Reference Range Interpretation Comments HEPATITIS B SURFACE AB (test code = REACTIVE NON-REACTIVE A 2737) HEPATITIS C [id number] 06:52:46 Test Item Value Reference Range Interpretation Comments HEPATITIS C ANTIBODY (test code NON-REACTIVE NON-REACTIVE = 4675) RUBELLA ANTIBODY [id number] 06:52:46 Test Item Value Reference Range Interpretation Comments RUBELLA ANTIBODY 122 IU/ML SEE BELOW SCREEN (test code = 4600) RUBELLA IgG INTERP REACTIVE REACTIVE INTERPRE TATION UNITS (test code = 70970) RANGE NON-REACTIVE/NO N-IMMUNE IU/ML <10 REACT NADIR/IMMUNE IU/ML >=10 XR LUMBAR SPINE 2 [id number] 04:46:37EXAM: XR LUMBAR SPINE 2 VW HISTORY: pain s/p fall COMPARISON: None FINDINGS: Frontal and lateral radiographs [...] of the visualized sacrum and pelvic bones. IDomenico MD., have reviewed this study and agree with the abovereport.[facility], Radiant Results Inft User - 10/13/2018 11:46 [...] paraspinal soft tissues are unremarkable.Intact cortical margins ofthe visualized sacrum and pelvic bones.I, Domenico Ramos MD., have reviewed this study and agree with the abovereport.[facility]
[2023-02-05] MEDS ORDERED: ACETAMINOPHEN 500 MG TAB ONE (19:57)
[2023-02-05] MEDS ORDERED: KETOROLAC 30 MG/ML INJ ONE (19:57)
[2023-02-05] MEDS ORDERED: DIAZEPAM 5 MG TABLET ONE (19:57)
[2023-02-05] MEDS ORDERED: predniSONE 20 MG TAB ONE (19:57)
[2023-02-05] MEDS ORDERED: LIDOCAINE 4% PATCH ONE (19:57)
[2023-02-05] MEDS ORDERED: OXYCODONE HCL 5 MG TAB ONE (20:55)
--- NOTE | 2023-02-05 22:56 | RAD REPORT ---
EXAM DESCRIPTION: CTSpine Lumbar Wo Con02/05/2023 10:11 pm CLINICAL HISTORY: Radiculopathy. Back pain COMPARISON: None TECHNIQUE: Computed axial tomography lumbar spine was obtained with coronal and sagittal reconstruct ion. All CT scans are performed using dose optimization technique as appropriate and may include automated exposure control or mA/KV adjustment according to patient size. FINDINGS: No fracture is seen. No dislocation noted Small central disc herniation suspected L4-5. Mild central spinal stenosis L3-4 and L4-5 IMPRESSION: Negative for a lumbar fracture. Small central disc herniation is suspected at L4-5 Mild central spinal stenosis L3-4 and L4-5 Nonemergent MRI lumbar spine recommended
--- NOTE | 2023-02-05 22:56 | RAD REPORT ---
EXAM DESCRIPTION: CT - Pelvis Wo Cont - 02/05/2023 10:12 pm CLINICAL HISTORY: Pelvic pain status post injury COMPARISON: None. TECHNIQUE: Computed axial tomography of the pelvis was obtained. Coronal and sagittal reconstruction performed All CT scans are performed using dose optimization technique as appropriate and may include automated exposure control or mA/KV adjustment according to patient size. FINDINGS: No fracture or dislocation is seen. No avascular necrosis Muscles are normal size and density. No significant hip joint effusion IMPRESSION: No fracture seen
--- NOTE | 2023-02-05 23:39 | ER ---
Nurse's Notes [facility] Name: Paul Patel Age: 32 yrs Sex: Male : 1990 Arrival Date: 02/05/2023 Time: 19:05 Bed 17 Private MD: Diagnosis: Sciatica, right side Presentation: 02/05 19:12 Chief complaint: Patient states: he is having bilateral hip pain after lifting a heavy ap3 clutch yesterday morning. patient reports the pain as a 10/10 on the pain scale at this time. Coronavirus screen: At this time, the client does not indicate any symptoms associated with coronavirus-19. Ebola Screen: No symptoms or risks identified at this time. Initial Sepsis Screen: Does the patient meet any 2 criteria? No. Patient's initial sepsis screen is negative. Does the patient have a suspected source of infection? No. Patient's initial sepsis screen is negative. Risk Assessment: Do you want to hurt yourself or someone else? Patient reports no desire to harm self or others. Onset of symptoms was February 04, 2023 at 08:00. 19:12 Method Of Arrival: Ambulatory ap3 19:15 Acuity: LOWELL 3 ap3 Triage Assessment: 19:14 General: Appears uncomfortable, Behavior is calm, cooperative, appropriate for age. ap3 Pain: Complains of pain in left hip and right hip Pain currently is 10 out of 10 on a pain scale. Pain began gradually. Neuro: Level of Consciousness is awake, alert, obeys commands, Oriented to person, place, time, situation, Appropriate for age. Cardiovascular: Patient's skin is warm and dry. Respiratory: Airway is patent Respiratory effort is even, unlabored, Respiratory pattern is regular, symmetrical. Musculoskeletal: Reports pain in left hip and right hip. Historical: - Allergies: 19:14 Morphine; aggressivness; ap3 - PMHx: 19:14 Back pain; Chronic pain; Hypertension; Kidney stones; scoliosis; ap3 - PSHx: 19:14 Cholecystectomy; ap3 - Immunization history:: Adult Immunizations up to date. - Social history:: Smoking status: Patient reports use of chewing tobacco. Patient uses alcohol, occasionally. Screenin:15 Abuse screen: Denies threats or abuse. Nutritional screening: No deficits noted. ap3 Tuberculosis screening: No symptoms or risk factors identified. 23:15 [facility] ED Fall Risk Assessment (Adult) History of falling in the last 3 months, me1 including since admission No falls in past 3 months (0 pts) Confusion or Disorientation No (0 pts) Intoxicated or Sedated No (0 pts) Impaired Gait No (0 pts) Mobility Assist Device Used No (0 pt) Altered Elimination No (0 pt) Score/Fall Risk Level 0 - 2 = Low Risk. Assessment: 23:15 General: Appears uncomfortable, well groomed, well developed, well nourished, Behavior me1 is calm, cooperative, appropriate for age, Reports he is having bilateral hip pain after lifting a heavy clutch yesterday morning. patient reports the pain as a 10/10 on the pain scale at this time. Pain: Complains of pain in pelvis and right hip and left hip Pain radiates to right leg. Neuro: Level of Consciousness is awake, alert, obeys commands, Oriented to person, place, time, situation, Appropriate for age Reports. Cardiovascular: Capillary refill < 3 seconds Patient's skin is warm and dry. Respiratory: Airway is patent Respiratory effort is even, unlabored, Respiratory pattern is regular, symmetrical. Musculoskeletal: Reports he is having bilateral hip pain after lifting a heavy clutch yesterday morning. patient reports the pain as a 10/10 on the pain scale at this time. Vital Signs: 19:12 BP 144 / 100; Pulse 89; Resp 19; Pulse Ox 100% ; Weight 92.08 kg; Height 5 ft. 7 in. ; ap3 Pain 10/10; 20:42 BP 151 / 103; Pulse 102; Resp 18; Pulse Ox 98% on R/A; me1 21:15 BP 137 / 92; Pulse 108; Resp 18; Pulse Ox 98% on R/A; me1 21:45 BP 121 / 75; Pulse 110; Resp 21; Pulse Ox 100% on R/A; me1 22:15 BP 115 / 56; Pulse 106; Resp 18; Pulse Ox 100% on R/A; me1 23:00 BP 120 / 50; Pulse 98; Resp 17; Pulse Ox 97% on R/A; me1 23:45 BP 123 / 67; Pulse 65; Resp 18; Pulse Ox 97% on R/A; me1 19:12 Body Mass Index 31.79 (92.08 kg, 170.18 cm) ap3 19:12 Pain Scale: Adult ap3 ED Course: 19:07 Patient arrived in ED. mr 19:09 Brendon Urrutia MD is Attending Physician. ec2 19:14 Triage completed. ap3 19:15 Arm band placed on right wrist. ap3 19:22 Patient has correct armband on for positive identification. Bed in low position. Call ap3 light in reach. Pulse ox on. NIBP on. 20:25 Milka García, MANISHA is Primary Nurse. me1 22:09 CT Lumbar Spine Wo Con In Process Unspecified. EDMS 22:09 CT Pelvis wo Cont In Process Unspecified. EDMS 23:15 Provided Education on: POC. Verbalized understanding. . me1 23:15 No provider procedures requiring assistance completed. Patient did not have IV access me1 during this emergency room visit. Administered Medications: 19:51 Drug: Diazepam PO 5 mg PO once Route: PO; km8 23:21 Follow up: Response: No adverse reaction; Pain is unchanged, physician notified me1 19:51 Drug: Ketorolac IM 30 mg IM once Route: IM; Site: right deltoid; km8 23:21 Follow up: Response: No adverse reaction; Pain is unchanged, physician notified me1 19:51 Drug: Lidoderm Topical Patch 5 % (700 mg/patch) 1 patches Topical once; leave on for 12 km8 hours; cover most painful area; may cut into smaller pieces Route: Topical; Site: affected area; 23:21 Follow up: Response: No adverse reaction me1 19:51 Drug: Acetaminophen PO 1000 mg PO once Route: PO; km8 23:21 Follow up: Response: No adverse reaction; Pain is unchanged, physician notified me1 19:51 Drug: predniSONE PO 40 mg PO once Route: PO; km8 23:21 Follow up: Response: No adverse reaction me1 20:43 Drug: oxyCODONE PO 10 mg PO once Route: PO; me1 23:21 Follow up: Response: No adverse reaction; Pain is decreased me1 Medication: 23:15 VIS not applicable for this client. me1 Outcome: 23:38 Discharge ordered by . ec2 02/06 00:01 Discharged to home ambulatory, me1 Condition: stable Discharge instructions given to patient, Instructed on discharge instructions, follow up and referral plans. medication usage, Demonstrated understanding of instructions, follow-up care, medications, Prescriptions given X 1, 00:02 Patient left the ED. mn1 Signatures: Dispatcher [employer] ED Rosalie Rodriguez, Reg Reg mr Trixie Gallardo RN RN ap3 Milka García RN RN me1 Brendon Urrutia MD MD ec2 Merlene Brown RN RN km8 Corrections: (The following items were deleted from the chart) 02/05 19:15 19:12 Acuity: LOWELL 4 ap3 ap3 23:15 19:12 Chief complaint: Patient states: he is having bilateral hip pain after lifting a me1 heavy clutch yesterday morning. patient reports the pain as a 10/10 on the pain scale at this time. ap3
--- NOTE | 2023-02-05 23:39 | EDPHYS ---
Physician Documentation [facility] Name: Paul Patel Age: 32 yrs Sex: Male : 1990 Arrival Date: 02/05/2023 Time: 19:05 Bed 17 Private MD: ED Physician Brendon Urrutia HPI: 02/05 19:19 This 32 yrs old Male presents to ER via Ambulatory with complaints of Hip Pain. ec2 19:19 Patient arrives today due to concern for bilateral hip pain. States that he was lifting ec2 a heavy object on the ground, subsequently went to pick it up and felt a sharp pain in his bilateral hips. States that his right hip is worse than the left. Reports that he has paresthesias on the right lower extremity. Patient reports no red flag symptoms, denies any bowel or bladder incontinence. Reports no falls or injuries, reports no trauma.. Historical: - Allergies: 19:14 Morphine; aggressivness; ap3 - PMHx: 19:14 Back pain; Chronic pain; Hypertension; Kidney stones; scoliosis; ap3 - PSHx: 19:14 Cholecystectomy; ap3 - Immunization history:: Adult Immunizations up to date. - Social history:: Smoking status: Patient reports use of chewing tobacco. Patient uses alcohol, occasionally. ROS: 19:19 Constitutional: as per hpi ec2 Exam: 19:19 Constitutional: GEN: NAD Head: atraumatic Eyes: EOMI Ears: External ears are ec2 normal. CV: regular rate LUNGS: no respiratory distress ABD: non-distended SKIN: no evidence of rashes MSK: no evidence of trauma, no C/C/L-spine TTP, positive right sided straight leg test NEURO: moves all extremities equally, intact sensation and strength in the bilateral lower extremities. Vital Signs: 19:12 BP 144 / 100; Pulse 89; Resp 19; Pulse Ox 100% ; Weight 92.08 kg; Height 5 ft. 7 in. ; ap3 Pain 10/10; 20:42 BP 151 / 103; Pulse 102; Resp 18; Pulse Ox 98% on R/A; me1 21:15 BP 137 / 92; Pulse 108; Resp 18; Pulse Ox 98% on R/A; me1 21:45 BP 121 / 75; Pulse 110; Resp 21; Pulse Ox 100% on R/A; me1 22:15 BP 115 / 56; Pulse 106; Resp 18; Pulse Ox 100% on R/A; me1 23:00 BP 120 / 50; Pulse 98; Resp 17; Pulse Ox 97% on R/A; me1 23:45 BP 123 / 67; Pulse 65; Resp 18; Pulse Ox 97% on R/A; me1 19:12 Body Mass Index 31.79 (92.08 kg, 170.18 cm) ap3 19:12 Pain Scale: Adult ap3 MDM: 19:11 Patient medically screened. ec2 19:19 Data reviewed: vital signs. ED course: Patient arrives today for evaluation of ec2 bilateral hip pain. Examination remarkable for well-appearing nontoxic individual who has MSK findings as noted above, intact strength and sensation in the bilateral lower extremities. Will treat the patient symptoms with Valium, Toradol, Tylenol as well as a Lidoderm patch. I suspect sciatica causing the patient's symptoms from a herniated disc. Low suspicion for spinal cord pathology given lack of red flag symptoms, low suspicion for bony fracture given lack of trauma. Will reassess after the medications.. 21:43 ED course: Patient remains in pain, will obtain imaging. Ultimately suspect disc ec2 herniation, low suspicion for bony fracture, low suspicion for spinal cord pathology. . 23:12 ED course: Disc herniation noted at L4-L5, no bony fracture identified. Distribution ec2 consistent with the patient's presentation today. Will discharge home. Return precautions given. Instructed on outpatient MRI and follow-up with PCP. . 02/05 21:43 Order name: CT Lumbar Spine Wo Con; Complete Time: 23:11 ec2 02/05 21:43 Order name: CT Pelvis wo Cont; Complete Time: 23:11 ec2 Administered Medications: 19:51 Drug: Diazepam PO 5 mg PO once Route: PO; km8 23:21 Follow up: Response: No adverse reaction; Pain is unchanged, physician notified ct1 19:51 Drug: Ketorolac IM 30 mg IM once Route: IM; Site: right deltoid; km8 23:21 Follow up: Response: No adverse reaction; Pain is unchanged, physician notified ct1 19:51 Drug: Lidoderm Topical Patch 5 % (700 mg/patch) 1 patches Topical once; leave on for 12 km8 hours; cover most painful area; may cut into smaller pieces Route: Topical; Site: affected area; 23:21 Follow up: Response: No adverse reaction me1 19:51 Drug: Acetaminophen PO 1000 mg PO once Route: PO; km8 23:21 Follow up: Response: No adverse reaction; Pain is unchanged, physician notified me1 19:51 Drug: predniSONE PO 40 mg PO once Route: PO; km8 23:21 Follow up: Response: No adverse reaction me1 20:43 Drug: oxyCODONE PO 10 mg PO once Route: PO; me1 23:21 Follow up: Response: No adverse reaction; Pain is decreased me1 Disposition Summary: 02/05/23 23:38 Discharge Ordered Condition: Stable ec2 Diagnosis - Sciatica, right side ec2 Followup: ec2 - With: Private Physician - When: - Reason: Re-evaluation by your physician Discharge Instructions: - Discharge Summary Sheet ec2 - Sciatica ec2 Forms: - Medication Reconciliation Form ec2 - Thank You Letter ec2 - Antibiotic Education ec2 - Prescription Opioid Use ec2 - Patient Portal Instructions ec2 - Leadership Thank You Letter ec2 Prescriptions: - methocarbamol 500 mg Oral tablet - take 2 tablets ORAL route 4 times per day; 30 tablet; Refills: 0, Product ec2 Selection Permitted Signatures: Dispatcher [employer] Trixie Michael RN RN ap3 Milka García RN RN ct1 Brendon Urrutia MD MD ec2 Merlene Brown RN RN km8
[2023-02-06 00:19] VITALS: O2SAT 97
[2023-02-06 00:20] VITALS: BP 123/67
== END 2023-02-06 00:02 | disposition home or self-care (01) ==
LOC: ER 19:05
DX: M54.31 Sciatica, right side (principal); M25.552 Pain in left hip; M25.551 Pain in right hip; Z88.5 Allergy status to narcotic agent; Z72.0 Tobacco use
CPT/HCPCS: 72131; 72192; 96372; 99284; J2001; J7512

== ENCOUNTER 2023-11-06 16:28 | Emergency (ER) | payer SELFPAY ==
[2023-11-06] MEDS ORDERED: KETOROLAC 30 MG/ML INJ ONE (16:59)
[2023-11-06] MEDS ORDERED: HYDROMORPHONE HCL 1 MG/ML INJ ONE ×2 (16:59→20:52)
[2023-11-06] MEDS ORDERED: dexAMETHasone 10 MG/ML VIAL ONE (16:59)
[2023-11-06] MEDS ORDERED: ONDANSETRON 4 MG/2 ML VIAL ONE (16:59)
[2023-11-06] MEDS ORDERED: NA CHLORIDE 0.9% 1,000 ML ONE (17:00)
[2023-11-06] MEDS ORDERED: DIAZEPAM 5 MG TABLET ONE (17:01)
[2023-11-06 17:12] LABS: Absolute Basophils 0.1 K/uL (0-0.5); Absolute Eosinophils 0.1 K/uL (0-0.5); Absolute Lymphocytes (CBC) 2.1 K/uL (0.7-4.9); Absolute Monocytes 0.7 K/uL (0.1-1.3); Absolute Neutrophil 3.5 K/uL (1.8-8.0); Basophils % 0.8 % (0-1.3); Eosinophils % 1.1 % (0-4.4); Hematocrit 47.5 % (39.6-49.0); Hemoglobin 15.9 g/dL (13.6-17.9); Lymphocytes % 32.6 % (15.3-44.8); MCH 28.6 pg (27.0-35.0); MCHC 33.6 g/dL (32.0-36.0); MCV 85.2 fL (80-100); MPV 8.4 fL (7.6-11.3); Monocytes % 11.2 % (3.3-12.3); Neutrophils % 54.3 % (41.7-73.7); Nucleated Red Blood Cells % 0.1 % (0-0); Platelets 251 thou/uL (152-406); RBC Red Blood Cell Count 5.57 M/uL (4.33-5.43); Red Cell Distribution Width 13.5 % (12.1-15.2)
[2023-11-06 17:17] LABS: Specific Gravity 1.028 (1.005-1.030); Sqamous Epithelial None Seen /HPF (None Seen); Urine Bacteria None Seen /HPF (<20); Urine Bilirubin NEGATIVE (Negative); Urine Blood Negative (Negative); Urine Clarity Clear (Clear); Urine Color Light-Yellow (Yellow); Urine Culture Reflex Order NOT NEEDED; Urine Glucose NEGATIVE (Negative); Urine Ketones NEGATIVE (Negative); Urine Microscopic Reflex YN ORDER UMIC; Urine Mucus Slight /HPF (None Seen); Urine Nitrite NEGATIVE (Negative); Urine Protein TRACE (Negative); Urine RBC <5 /HPF (None Seen); Urine Urobilinogen Normal (Normal); Urine WBC <5 /HPF (<5)
[2023-11-06 17:28] LABS: ALT/SGPT 69 U/L (16-61); AST/SGOT 27 U/L (15-37); Albumin 3.9 g/dL (3.4-5.0); Albumin/Globulin Ratio 1.1 (1.1-1.8); Alkaline Phosphatase 73 U/L (45-117); Anion Gap 7.9 mEq/L (5.0-15.0); BUN Blood Urea Nitrogen 8 mg/dL (7-18); Bicarbonate 27 mEq/L (21-32); Bilirubin Total 0.3 mg/dL (0.2-1.0); Globulin 3.7 g/dL (2.3-3.5); Glomerular Filtration Rate 110 ml/min (=/>90); Glucose Level 103 mg/dL (74-106); Potassium 3.9 mEq/L (3.5-5.1); Protein, Total 7.6 g/dL (6.4-8.2); Sodium Level 136 mEq/L (136-145)
[2023-11-06 17:29] LABS: C-Reactive Protein < 2.90 mg/L (<3.00)
--- NOTE | 2023-11-06 18:13 | RAD REPORT ---
EXAM DESCRIPTION: RAD - Hip Right 2 View - 11/06/2023 6:00 pm CLINICAL HISTORY: PAIN COMPARISON: No comparisons FINDINGS: No acute fracture. No malalignment. No significant focal degenerative changes. IMPRESSION: No acute osseous abnormality involving the right hip.
--- NOTE | 2023-11-06 18:13 | RAD REPORT ---
EXAM DESCRIPTION: RAD - Hip Left 2 View - 11/06/2023 5:59 pm CLINICAL HISTORY: PAIN COMPARISON: No comparisons FINDINGS/IMPRESSION: No acute fracture. No malalignment. No significant focal degenerative changes.
--- NOTE | 2023-11-06 18:14 | RAD REPORT ---
EXAM DESCRIPTION: RAD - Pelvis - 11/06/2023 5:59 pm CLINICAL HISTORY: PAIN COMPARISON: Pelvis Wo Cont dated 02/05/2023 FINDINGS/IMPRESSION: No acute fracture. No malalignment. No significant focal degenerative changes.
--- NOTE | 2023-11-06 19:09 | RAD REPORT ---
EXAM DESCRIPTION: CT - Spine Lumbar Wo Con - 11/06/2023 6:54 pm CLINICAL HISTORY: PAIN COMPARISON: Spine Lumbar Wo Con dated 02/05/2023 TECHNIQUE: Axial noncontrast CT imaging of the lumbar spine was performed with coronal and sagittal re-formatted images. All CT scans are performed using dose optimization technique as appropriate and may include automated exposure control or mA/KV adjustment according to patient size. FINDINGS: No acute lumbar spine fracture seen. No aggressive marrow pattern or malalignment. Paraspinal tissues are normal in thickness. No paraspinal abscess or hematoma seen. Intervertebral disc disease assessment is inherently limited by CT. Within these limitations, no high -grade canal stenosis suspected. Broad-based disc bulges are present at L3-4, L4-5, and L5-S1. Question moderate central spinal stenos is at the L4-5 level. Mild central spinal stenosis is present at L3-4. Mild neural foraminal narrowin g is noted bilaterally at these levels. IMPRESSION: No acute fracture of the lumbar spine. Disc bulges present at L3-4, L4-5, and L5-S1 with findings that are most advanced at L4-5 where there is moderate central spinal stenosis. This could be better assessed with MRI.
--- NOTE | 2023-11-06 19:11 | RAD REPORT ---
EXAM DESCRIPTION: CT - Pelvis Wo Cont - 11/06/2023 6:55 pm CLINICAL HISTORY: ICLUDE BOTH HIPS, ATTN RIGHT HIP;Pain COMPARISON: Pelvis Wo Cont dated 02/05/2023 FINDINGS: No acute pelvic or hip fracture identified. No significant focal degenerative changes are identified. Deformity at the anterior aspect of the right iliac bone near the acetabulum may be from remote trauma. The femoral heads are smooth in contour. No focal soft tissue abnormality is appreciat ed. IMPRESSION: No acute osseus abnormality involving the bony pelvis or hips. No significant focal dege nerative changes.
--- NOTE | 2023-11-06 20:25 | ER ---
Nurse's Notes [facility] Name: Paul Patel Age: 32 yrs Sex: Male : 1990 Arrival Date: 11/06/2023 Time: 16:28 Bed 8 Private MD: Diagnosis: History of falling;Pain in right hip;Unspecified symptoms and signs involving the musculoskeletal system;Intervertebral disc disorders with radiculopathy, lumbosacral region Presentation: 11/05 16:35 Chief complaint: Patient states: LEFT HIP PAIN X 1 MONTH GRADUALLY GETTING WORSE AND db TODAY DIFFICULTY AMBULATING. DENIES RECENT INJURY. STATES WAS INJURED 2 YRS AGO FELL 82 FT AT WORK WITH A [employer] BUT DID NOT GET CHECKED. Coronavirus screen: Client denies travel out of the [place] in the last 14 days. At this time, the client does not indicate any symptoms associated with coronavirus-19. Ebola Screen: Patient negative for fever greater than or equal to 101.5 degrees Fahrenheit, and additional compatible Ebola Virus Disease symptoms Patient denies exposure to infectious person. Patient denies travel to an Ebola-affected area in the 21 days before illness onset. No symptoms or risks identified at this time. Initial Sepsis Screen: Does the patient meet any 2 criteria? No. Patient's initial sepsis screen is negative. Does the patient have a suspected source of infection? No. Patient's initial sepsis screen is negative. Risk Assessment: Do you want to hurt yourself or someone else? Patient reports no desire to harm self or others. Onset of symptoms was November 06, 2023. 16:35 Method Of Arrival: Ambulatory db 16:35 Acuity: LOWELL 3 db Triage Assessment: 16:45 General: Appears in no apparent distress. comfortable, Behavior is calm, cooperative. db Pain: Complains of pain in left leg. Neuro: Level of Consciousness is awake, alert, obeys commands, Oriented to person, place, time, situation. Respiratory: Airway is patent Respiratory effort is even, unlabored, Respiratory pattern is regular, symmetrical. Musculoskeletal: Range of motion: limited in left hip. Historical: - Allergies: 16:45 Morphine; aggressivness; db - PMHx: 16:45 Back pain; Chronic pain; Hypertension; Kidney stones; scoliosis; db - PSHx: 16:45 Cholecystectomy; db - Immunization history:: Adult Immunizations unknown. - Infectious Disease History:: Denies. - Social history:: Smoking status: Patient reports use of chewing tobacco. Screenin:10 [facility] ED Fall Risk Assessment (Adult) History of falling in the last 3 months, ld1 including since admission No falls in past 3 months (0 pts) Confusion or Disorientation No (0 pts) Intoxicated or Sedated No (0 pts) Impaired Gait No (0 pts) Mobility Assist Device Used No (0 pt) Altered Elimination No (0 pt) Score/Fall Risk Level 0 - 2 = Low Risk Oriented to surroundings, Maintained a safe environment, Educated pt \T\ family on fall prevention, incl call for assistance when getting out of bed, Assessed \T\ reinforced patient's understanding of fall precautions, Provided non-skid footwear, Hourly rounding (assess needs \T\ fall precautionary measures) done, Used ambulatory aids as needed (educated on \T\ assisted with), Used gait belt as appropriate. Abuse screen: Denies threats or abuse. Denies injuries from another. Nutritional screening: No deficits noted. Tuberculosis screening: No symptoms or risk factors identified. Assessment: 17:10 General: Appears in no apparent distress. uncomfortable, Behavior is calm, cooperative, ld1 appropriate for age. Pain: Complains of pain in pelvis Pain does not radiate. Pain currently is 8 out of 10 on a pain scale. Quality of pain is described as aching, throbbing, Pain began years ago. Is continuous. Neuro: Level of Consciousness is awake, alert, obeys commands, Oriented to person, place, time, situation. Cardiovascular: Capillary refill < 3 seconds Patient's skin is warm and dry. Respiratory: Airway is patent Respiratory effort is even, unlabored. GI: Abdomen is round non-distended. : No signs and/or symptoms were reported regarding the genitourinary system. EENT: No signs and/or symptoms were reported regarding the EENT system. Derm: No signs and/or symptoms reported regarding the dermatologic system. Musculoskeletal: No signs and/or symptoms reported regarding the musculoskeletal system. 20:55 Reassessment: Discharged delayed due to emergent patient. cp4 Vital Signs: 16:35 BP 158 / 99; Pulse 88; Resp 18; Temp 99.9(O); Pulse Ox 97% on R/A; Weight 92.99 kg; db Height 5 ft. 7 in. ; Pain 10/10; 17:10 Pulse 92; Resp 18; Pulse Ox 100% on R/A; Pain 8/10; ld1 21:08 BP 167 / 89; Pulse 88; Resp 18; Temp 98.4; Pulse Ox 100% ; cp4 16:35 Body Mass Index 32.11 (92.99 kg, 170.18 cm) db 16:35 Pain Scale: Adult db 17:10 Pain Scale: Adult ld1 ED Course: 16:32 Patient arrived in ED. mg5 16:36 Patria Bertrand, MANISHA is Primary Nurse. ld1 16:45 Triage completed. db 16:45 Gallito Beard MD is Attending Physician. oscar 16:46 Arm band placed on Patient placed in an exam room. db 17:10 Patient has correct armband on for positive identification. Placed in gown. Bed in low ld1 position. Call light in reach. Side rails up X2. chain hooker on. Pulse ox on. NIBP on. Door closed. Noise minimized. Warm blanket given. 17:10 Urinalysis w/ reflexes Sent. ld1 17:10 Comprehensive Metabolic Panel Sent. ld1 17:10 CBC with Diff Sent. ld1 17:10 CRP Sent. ld1 17:10 No provider procedures requiring assistance completed. Inserted saline lock: 20 gauge ld1 in right antecubital area, using aseptic technique. Blood collected. Flushed with 10 mL NS. 18:01 Hip Left 2 View XRAY In Process Unspecified. EDMS 18:01 Pelvis XRAY In Process Unspecified. EDMS 18:02 Hip Right 2 View XRAY In Process Unspecified. EDMS 18:56 CT Lumbar Spine Wo Con In Process Unspecified. EDMS 18:57 CT Pelvis wo Cont In Process Unspecified. EDMS 20:24 Mehdi Cornelius MD is Referral Physician. cp Administered Medications: 17:09 Drug: NS 0.9% IV 1000 ml IV at 1 bolus Per protocol; 1000 mL bolus Route: IV; Rate: 1 ld1 bolus; Site: right antecubital; 17:09 Drug: Decadron - Dexamethasone IVP 10 mg IVP once Route: IVP; Site: right antecubital; ld1 19:17 Follow up: Response: No adverse reaction cp4 17:09 Drug: Diazepam PO 10 mg PO once Route: PO; ld1 19:17 Follow up: Response: No adverse reaction cp4 17:09 Drug: Ketorolac IVP 30 mg IVP once Route: IVP; Site: right antecubital; ld1 19:17 Follow up: Response: No adverse reaction cp4 17:09 Drug: Ondansetron IVP 4 mg IVP once; over 2 minutes Route: IVP; Site: right antecubital;ld1 19:18 Follow up: Response: No adverse reaction cp4 17:09 Drug: HYDROmorphone IVP 1 mg IVP once Route: IVP; Site: right antecubital; ld1 19:18 Follow up: Response: No adverse reaction; Pain is decreased cp4 20:54 Drug: HYDROmorphone IVP 1 mg IVP once Route: IVP; Site: right antecubital; cp4 21:09 Follow up: Response: No adverse reaction; Pain is decreased cp4 Medication: 17:10 VIS not applicable for this client. ld1 Outcome: 20:24 Discharge ordered by . cp 21:10 Patient left the ED. cp4 Signatures: Dispatcher [employer] EDMS Gallito Beard MD MD cha Page, Corey, PA PA cp Sims, Lauren, RN RN ld1 Yudy Seals RN RN Larissa Peterson mg5 Elicia Montana cp4
--- NOTE | 2023-11-06 20:25 | EDPHYS ---
Physician Documentation [facility] Name: Paul Patel Age: 32 yrs Sex: Male : 1990 Arrival Date: 11/06/2023 Time: 16:28 Bed 8 Private MD: ED Physician Gallito Beard HPI: 11/05 18:31 This 32 yrs old Male presents to ER via Ambulatory with complaints of Hip oscar Pain. 18:31 The patient or guardian reports decreased range of motion, pain. sustained from a fall, oscar There is no obvious deformity, The patient is able to self ambulate. The patient is able to bear their full body weight. There is no radiation of the patient's discomfort. The complaints affect the right hip. Onset: The symptoms/episode began/occurred 30 day(s) ago. Modifying factors: The symptoms are alleviated by nothing, remaining still, the symptoms are aggravated by any movement. Associated signs and symptoms: Loss of consciousness: the patient experienced no loss of consciousness. Severity of symptoms: At their worst the symptoms were moderate, in the emergency department the symptoms have improved, moderately. The patient has experienced similar episodes in the past, multiple times. Historical: - Allergies: 16:45 Morphine; aggressivness; db - PMHx: 16:45 Back pain; Chronic pain; Hypertension; Kidney stones; scoliosis; db - PSHx: 16:45 Cholecystectomy; db - Immunization history:: Adult Immunizations unknown. - Infectious Disease History:: Denies. - Social history:: Smoking status: Patient reports use of chewing tobacco. ROS: 18:37 Constitutional: Negative for fever, chills, and weight loss, Eyes: Negative for injury, oscar pain, redness, and discharge, ENT: Negative for injury, pain, and discharge, Neck: Negative for injury, pain, and swelling, Cardiovascular: Negative for chest pain, palpitations, and edema, Respiratory: Negative for shortness of breath, cough, wheezing, and pleuritic chest pain, Abdomen/GI: Negative for abdominal pain, nausea, vomiting, diarrhea, and constipation, Back: Negative for injury and pain, : Negative for injury, bleeding, discharge, and swelling, Skin: Negative for injury, rash, and discoloration, Neuro: Negative for headache, weakness, numbness, tingling, and seizure, Psych: Negative for depression, anxiety, suicide ideation, homicidal ideation, and hallucinations, Allergy/Immunology: Negative for hives, rash, and allergies, Endocrine: Negative for neck swelling, polydipsia, polyuria, polyphagia, and marked weight changes, Hematologic/Lymphatic: Negative for swollen nodes, abnormal bleeding, and unusual bruising, 18:37 MS/extremity: Positive for injury or acute deformity, decreased range of motion, pain, tenderness, of the right hip, Exam: 18:37 Constitutional: This is a well developed, well nourished patient who is awake, alert, oscar and in no acute distress. Head/Face: Normocephalic, atraumatic. Eyes: Pupils equal round and reactive to light, extra-ocular motions intact. Lids and lashes normal. Conjunctiva and sclera are non-icteric and not injected. Cornea within normal limits. Periorbital areas with no swelling, redness, or edema. ENT: Nares patent. No nasal discharge, no septal abnormalities noted. Tympanic membranes are normal and external auditory canals are clear. Oropharynx with no redness, swelling, or masses, exudates, or evidence of obstruction, uvula midline. Mucous membranes moist. Neck: Trachea midline, no thyromegaly or masses palpated, and no cervical lymphadenopathy. Supple, full range of motion without nuchal rigidity, or vertebral point tenderness. No Meningismus. Chest/axilla: Normal chest wall appearance and motion. Nontender with no deformity. No lesions are appreciated. Cardiovascular: Regular rate and rhythm with a normal S1 and S2. No gallops, murmurs, or rubs. Normal PMI, no JVD. No pulse deficits. Respiratory: Lungs have equal breath sounds bilaterally, clear to auscultation and percussion. No rales, rhonchi or wheezes noted. No increased work of breathing, no retractions or nasal flaring. Abdomen/GI: Soft, non-tender, with normal bowel sounds. No distension or tympany. No guarding or rebound. No evidence of tenderness throughout. Skin: Warm, dry with normal turgor. Normal color with no rashes, no lesions, and no evidence of cellulitis. MS/ Extremity: Pulses equal, no cyanosis. Neurovascular intact. Full, normal range of motion. Neuro: Awake and alert, GCS 15, oriented to person, place, time, and situation. Cranial nerves II-XII grossly intact. Motor strength 5/5 in all extremities. Sensory grossly intact. Cerebellar exam normal. Normal gait. Psych: Awake, alert, with orientation to person, place and time. Behavior, mood, and affect are within normal limits. 18:37 Back: pain, that is mild, ROM is painful, with flexion, with extension, normal spinal alignment noted, CVA tenderness, is absent, muscle spasm, is appreciated in the left low back, left mid back, right mid back and right low back, 18:37 Musculoskeletal/extremity: ROM: limited active range of motion due to pain, limited passive range of motion due to pain, in the right hip, right gluteal fold and right upper thigh, DVT Exam: No signs of deep vein thrombosis. no swelling, negative Homans' sign noted on exam, no appreciated bluish discoloration, no erythema, no increased warmth, pain, tenderness, that is moderate, of the right leg, of the right hip, Vital Signs: 16:35 BP 158 / 99; Pulse 88; Resp 18; Temp 99.9(O); Pulse Ox 97% on R/A; Weight 92.99 kg; db Height 5 ft. 7 in. ; Pain 10/10; 17:10 Pulse 92; Resp 18; Pulse Ox 100% on R/A; Pain 8/10; ld1 21:08 BP 167 / 89; Pulse 88; Resp 18; Temp 98.4; Pulse Ox 100% ; cp4 16:35 Body Mass Index 32.11 (92.99 kg, 170.18 cm) db 16:35 Pain Scale: Adult db 17:10 Pain Scale: Adult ld1 MDM: 16:45 Patient medically screened. oscar 18:40 Differential diagnosis: hip fracture, intertrochanteric fracture, femoral neck oscar fracture, femoral shaft fracture, bursitis, arthritis, strain. Data reviewed: vital signs, nurses notes, lab test result(s), EKG, radiologic studies, CT scan, plain films. Consideration of Admission/Observation Escalation of care including admission/observation considered. I considered the following discharge prescriptions or medication management in the emergency department Medications were administered in the Emergency Department. See MAR. Independent interpretation of the following test(s) in the Emergency Department CT Scan: My interpretation is CT LUMBAR, PELVIS, HIPS. Test considered but Not performed: MRI: NO MRI PELVIS, RIGHT HIP. Care significantly affected by the following chronic conditions: BACK PAIN, CHRONIC PAIN, KIDNEY STONES, SCOLIOSIS. Counseling: I had a detailed discussion with the patient and/or guardian regarding the historical points, exam findings, and any diagnostic results supporting the discharge/admit diagnosis, lab results, radiology results, the need for outpatient follow up, for definitive care, a family practitioner, a orthopedic surgeon. 11/05 16:46 Order name: CBC with Diff; Complete Time: 18:[address] [facility] 11/05 16:46 Order name: Comprehensive Metabolic Panel; Complete Time: 18:[address] [facility] 11/05 16:46 Order name: Urinalysis w/ reflexes; Complete Time: 18:[address] [facility] 11/05 16:46 Order name: CRP; Complete Time: 18:[address] [facility] 11/05 16:46 Order name: Hip Left 2 View XRAY; Complete Time: 18:[address] [facility] 11/05 16:46 Order name: Pelvis XRAY; Complete Time: 18:[address] [facility] 11/05 17:38 Order name: Hip Right 2 View XRAY; Complete Time: 18:26 11/05 18:30 Order name: CT Lumbar Spine Wo Con; Complete Time: 20:[address] [facility] 11/05 18:30 Order name: CT Pelvis wo Cont; Complete Time: 20:[address] [facility] 11/05 18:56 Order name: Crutches; Complete Time: 20:[address] [facility] 11/05 18:56 Order name: Ice pack; Complete Time: 20:[address] [facility] Administered Medications: 17:09 Drug: NS 0.9% IV 1000 ml IV at 1 bolus Per protocol; 1000 mL bolus Route: IV; Rate: 1 ld1 bolus; Site: right antecubital; 17:09 Drug: Decadron - Dexamethasone IVP 10 mg IVP once Route: IVP; Site: right antecubital; ld1 19:17 Follow up: Response: No adverse reaction cp4 17:09 Drug: Diazepam PO 10 mg PO once Route: PO; ld1 19:17 Follow up: Response: No adverse reaction cp4 17:09 Drug: Ketorolac IVP 30 mg IVP once Route: IVP; Site: right antecubital; ld1 19:17 Follow up: Response: No adverse reaction cp4 17:09 Drug: Ondansetron IVP 4 mg IVP once; over 2 minutes Route: IVP; Site: right antecubital;ld1 19:18 Follow up: Response: No adverse reaction cp4 17:09 Drug: HYDROmorphone IVP 1 mg IVP once Route: IVP; Site: right antecubital; ld1 19:18 Follow up: Response: No adverse reaction; Pain is decreased cp4 20:54 Drug: HYDROmorphone IVP 1 mg IVP once Route: IVP; Site: right antecubital; cp4 21:09 Follow up: Response: No adverse reaction; Pain is decreased cp4 Disposition Summary: 11/06/23 20:24 Discharge Ordered Notes: Location: Home cp Problem: new cp Symptoms: have improved cp Condition: Stable cp Diagnosis - History of falling cp - Pain in right hip cp - Unspecified symptoms and signs involving the musculoskeletal system cp - Intervertebral disc disorders with radiculopathy, lumbosacral region cp Followup: oscar - With: Private Physician - When: 2 - 3 days - Reason: Recheck today's complaints, Continuance of care, Re-evaluation by your physician Followup: oscar - With: Mehdi Cornelius MD - When: 2 - 3 days - Reason: Recheck today's complaints, Re-evaluation by your physician Discharge Instructions: - Discharge Summary Sheet oscar - Joint Pain oscar - Musculoskeletal Pain oscar - Arthritis, Uzag-du-Avuy oscar - How to Use Cold Therapy oscar - Joint Pain, [id number]-Eoet [facility] Forms: - Medication Reconciliation Form cp - Antibiotic Education cp - Prescription Opioid Use cp - Patient Portal Instructions cp - Leadership Thank You Letter cp Prescriptions: - Diclofenac Sodium 75 mg Oral tablet, delayed release (enteric coated) - take 1 tablet ORAL route 2 times per day; 20 tablet; Refills: 0, Product oscar Selection Permitted - Tramadol 50 mg Oral tablet - take 1 tablet ORAL route every 6-8 hours as needed; 20 tablet; Refills: 0, [facility] Product Selection Permitted - Medrol (Inderjit) 4 mg Oral Tablets, Dose Pack - take 1 tablet ORAL route as directed - follow package instructions; 1 packet; oscar Refills: 0, Product Selection Permitted - Cyclobenzaprine 5 mg Oral Tablet - take 1 tablet ORAL route 3 times per day As needed; 15 tablet; Refills: 0, [facility] Product Selection Permitted Signatures: Dispatcher [employer] Gallito Leone MD MD cha Page, Corey, PA PA Ramesh Steinen, RN RN ld1 Yudy Seals RN RN db Elicia Montana cp4 Corrections: (The following items were deleted from the chart) 16:47 16:47 CBC+H.LAB.BRZ ordered. EDMS EDMS 16:47 16:47 COMPREHENSIVE METABOLIC PANEL+C.LAB.BRZ ordered. EDMS EDMS 16:47 16:47 Urinalysis+U.LAB.BRZ ordered. EDMS EDMS 16:47 16:47 C-REACTIVE PROTEIN+C.LAB.BRZ ordered. EDMS EDMS 16:47 16:47 Hip Left 2 View+RAD.RAD.BRZ ordered. EDMS EDMS 16:47 16:47 Pelvis+RAD.RAD.BRZ ordered. EDMS EDMS 18:30 18:30 Pelvis Wo Cont+CT.RAD.BRZ ordered. EDMS EDMS
[2023-11-06 21:36] VITALS: O2SAT 100
[2023-11-06 21:37] VITALS: BP 167/89; TEMP 98.4
== END 2023-11-06 21:10 | disposition home or self-care (01) ==
LOC: ER 16:28
DX: M25.551 Pain in right hip (principal); R29.91 Unspecified symptoms and signs involving the musculoskeletal system; M51.17 Intervertebral disc disorders with radiculopathy, lumbosacral region; Z91.81 History of falling
CPT/HCPCS: 36415; 72131; 72170; 72192; 80053; 81001; 85025; 86140; 96374; 96375; 99285; J1100; J1170; J2405; J7030

== ENCOUNTER 2024-01-23 14:14 | Emergency (ER) | payer OTHER ==
--- NOTE | 2024-01-23 17:04 | ER ---
Nurse's Notes [facility] Name: Paul Patel Age: 33 yrs Sex: Male : 1990 Arrival Date: 01/23/2024 Time: 14:14 Bed IW1 Private MD: Diagnosis: Presentation: 01/22 14:28 Chief complaint: Patient states: right knee pain and back pain that began Jt night, aa5 pt states "I might of tweaked my back but I am not sure". Coronavirus screen: At this time, the client does not indicate any symptoms associated with coronavirus-19. Ebola Screen: Patient denies travel to an Ebola-affected area in the 21 days before illness onset. Initial Sepsis Screen: Does the patient meet any 2 criteria? HR > 90 bpm. Does the patient have a suspected source of infection? No. Patient's initial sepsis screen is negative. Risk Assessment: Do you want to hurt yourself or someone else? Patient reports no desire to harm self or others. Onset of symptoms was January 20, 2024. 14:28 Acuity: LOWELL 3 aa5 14:28 Method Of Arrival: Ambulatory aa5 Historical: - Allergies: 14:28 Morphine; aggressivness; aa5 - Home Meds: 14:30 amlodipine 5 mg tablet once [Active]; amitriptyline 20mg Oral tablet every day at aa5 bedtime [Active]; - PMHx: 14:28 Back pain; Chronic pain; Hypertension; Kidney stones; scoliosis; aa5 - PSHx: 14:28 Cholecystectomy; aa5 - Immunization history:: Adult Immunizations unknown. - Infectious Disease History:: Denies. - Social history:: Smoking status: Patient reports use of chewing tobacco. Assessment: 16:30 Reassessment: called pt to exam room. No answer. ss 16:45 Reassessment: called to exam room no answer. ss Vital Signs: 14:28 BP 145 / 96; Pulse 107; Resp 18 S; Temp 97.8(TE); Pulse Ox 97% on R/A; Weight 103.87 kg aa5 (R); Height 5 ft. 7 in. (R); 14:28 Body Mass Index 35.87 (103.87 kg, 170.18 cm) aa5 ED Course: 14:17 Patient arrived in ED. mg5 14:19 [facility]buena [facility]. sb4 14:19 Kunal Newsome MD is Attending Physician. sb4 14:28 Arm band placed on. aa5 14:30 Triage completed. aa5 Administered Medications: No medications were administered Outcome: 17:03 Eloped from waiting room, before seeing physician ss 17:04 Patient left the ED. ss Signatures: Brooklyn Velazco RN RN aa5 Inna Mendoza RN RN ss Grazyna Balbuena PA-C PA-C sb4 Larissa Metcalf mg5
[2024-01-23 17:12] VITALS: BP 145/96; TEMP 97.8; O2SAT 97
== END 2024-01-23 17:04 | disposition left against medical advice (07) ==
LOC: ER 14:14
DX: Z02.9 Encounter for administrative examinations, unspecified (principal)
CPT/HCPCS: 99281

== ENCOUNTER 2024-01-24 10:13 | Emergency (ER) | payer OTHER ==
[2024-01-24] MEDS ORDERED: ASPIRIN 81 MG CHEWABLE TABLET ONE (10:36)
[2024-01-24] MEDS ORDERED: NITROGLYCERIN 0.4 MG/TAB SL ONE (10:36)
[2024-01-24 10:57] LABS: Absolute Eosinophils 0.2 K/uL (0-0.5); Absolute Lymphocytes (CBC) 2.4 K/uL (0.7-4.9); Absolute Monocytes 0.8 K/uL (0.1-1.3); Absolute Neutrophil 2.7 K/uL (1.8-8.0); Basophils % 0.8 % (0-1.3); Eosinophils % 3.5 % (0-4.4); Hematocrit 46.6 % (39.6-49.0); Lymphocytes % 39.4 % (15.3-44.8); MCH 28.9 pg (27.0-35.0); MCHC 34.2 g/dL (32.0-36.0); MCV 84.4 fL (80-100); MPV 8.2 fL (7.6-11.3); Monocytes % 12.3 % (3.3-12.3); Nucleated Red Blood Cells % 0.2 % (0-0); Platelets 286 thou/uL (152-406); RBC Red Blood Cell Count 5.52 M/uL (4.33-5.43); Red Cell Distribution Width 13.3 % (12.1-15.2)
--- NOTE | 2024-01-24 11:09 | RAD REPORT ---
Procedure: Chest Single View HISTORY: Chest pain COMPARISON: 2019 FINDINGS: The lungs appear clear of acute infiltrate. No significant pleural effusion noted. The heart is normal size. IMPRESSION: No acute abnormality is displayed.
[2024-01-24 11:12] LABS: ALT/SGPT 59 U/L (16-61); AST/SGOT 20 U/L (15-37); Alkaline Phosphatase 72 U/L (45-117); Anion Gap 5.6 mEq/L (5.0-15.0); BUN Blood Urea Nitrogen 9 mg/dL (7-18); Bicarbonate 29 mEq/L (21-32); Bilirubin Direct < 0.2 mg/dL (0-0.2); Bilirubin Indirect, Calculated 0.3 mg/dL (0.2-0.8); Bilirubin Total 0.5 mg/dL (0.2-1.0); Glomerular Filtration Rate 93 ml/min (=/>90); Glucose Level 88 mg/dL (74-106); Potassium 3.6 mEq/L (3.5-5.1); Sodium Level 137 mEq/L (136-145); Troponin High Sensitivity 3.1 pg/mL (<58.9)
--- NOTE | 2024-01-24 13:48 | RAD REPORT ---
EXAMINATION: CTA CHEST PE CLINICAL INDICATION: chest ;Chest pain TECHNIQUE: This examination was performed according to an angiographic protocol with 3D post-processi ng. This involves 3D reconstructions, MIPs, volume rendered images and/or shaded surface rendering. One or more of the following dose reduction techniques were used: Automated exposure control, adjustm ent of the mA and/or kV according to patient size, and/or iterative reconstruction. Unless otherwise specified, incidental findings do not require dedicated imaging follow-up. COMPARISON: No prior exam. FINDINGS: PULMONARY ARTERIES: Normal caliber. No evidence of pulmonary emboli to the subsegmental level. THORACIC AORTA: Normal caliber and configuration. LUNGS: No evidence of airspace or interstitial process. No nodules. PLEURA: No pleural effusion. No pneumothorax. MEDIASTINUM AND LYMPH NODES: No mediastinal mass or fluid collection. Normal size mediastinal, hilar, and axillary lymph nodes. OSSEOUS STRUCTURES AND CHEST WALL: Intact. UPPER ABDOMEN: No significant abnormalities. IMPRESSION: No evidence of pulmonary emboli to the subsegmental level.
--- NOTE | 2024-01-24 16:05 | ER ---
Nurse's Notes [facility] Name: Paul Patel Age: 33 yrs Sex: Male : 1990 Arrival Date: 01/24/2024 Time: 10:13 Bed 14 Private MD: Diagnosis: Chest pain, unspecified Presentation: 01/23 10:18 Chief complaint: Patient states: chest pain started around 0630 and has not stopped. tm6 Feels like a truck on my chest. Central. 10:30 Coronavirus screen: Client denies travel out of the [place] in the last 14 days. Ebola tm6 Screen: Patient negative for fever greater than or equal to 101.5 degrees Fahrenheit, and additional compatible Ebola Virus Disease symptoms Patient denies exposure to infectious person. Patient denies travel to an Ebola-affected area in the 21 days before illness onset. No symptoms or risks identified at this time. Initial Sepsis Screen: Does the patient meet any 2 criteria? HR > 90 bpm. Does the patient have a suspected source of infection? No. Patient's initial sepsis screen is negative. Risk Assessment: Do you want to hurt yourself or someone else? Patient reports no desire to harm self or others. Onset of symptoms was January 24, 2024 at 06:30. 10:30 Method Of Arrival: Ambulatory tm6 10:30 Acuity: LOWELL 3 tm6 Triage Assessment: 10:30 General: Appears uncomfortable, Behavior is cooperative. Pain: Complains of pain in tm6 chest Quality of pain is described as pressure, Pain began 4 hours ago. EENT: No signs and/or symptoms were reported regarding the EENT system. Neuro: Level of Consciousness is awake, alert, obeys commands, Oriented to person, place, time, situation. Cardiovascular: Reports chest pain, shortness of breath, since 0630 Patient's skin is warm and dry. Respiratory: Reports shortness of breath Airway is patent Respiratory effort is even, unlabored, Respiratory pattern is regular, symmetrical. GI: No signs and/or symptoms were reported involving the gastrointestinal system. : No signs and/or symptoms were reported regarding the genitourinary system. Derm: No signs and/or symptoms reported regarding the dermatologic system. Musculoskeletal: No signs and/or symptoms reported regarding the musculoskeletal system. Historical: - Allergies: 10:30 Morphine; aggressivness; tm6 - PMHx: 10:30 Back pain; Chronic pain; Hypertension; Kidney stones; scoliosis; tm6 - PSHx: 10:30 Cholecystectomy; tm6 - Immunization history:: Client reports having NOT received the Covid vaccine. - Infectious Disease History:: Denies. - Social history:: Smoking status: Patient reports the use of cigarette tobacco products, denies chronic smoking, but will smoke occasionally, Patient reports use of chewing tobacco. Patient uses alcohol, occasionally. - Family history:: not pertinent. Screenin:50 [facility] ED Fall Risk Assessment (Adult) History of falling in the last 3 months, bp including since admission No falls in past 3 months (0 pts) Confusion or Disorientation No (0 pts) Intoxicated or Sedated No (0 pts) Impaired Gait No (0 pts) Mobility Assist Device Used No (0 pt) Altered Elimination No (0 pt) Score/Fall Risk Level 0 - 2 = Low Risk. Abuse screen: Denies threats or abuse. Denies injuries from another. Nutritional screening: No deficits noted. Tuberculosis screening: No symptoms or risk factors identified. Assessment: 10:30 General: Appears in no apparent distress. uncomfortable, Behavior is cooperative, bp appropriate for age, anxious. Pain: Complains of pain in chest Pain does not radiate. 11:49 Reassessment: No changes from previously documented assessment. Patient is alert, bp oriented x 3, equal unlabored respirations, skin warm/dry/pink. 15:04 Reassessment: Patient appears in no apparent distress at this time. Patient is alert, bp oriented x 3, equal unlabored respirations, skin warm/dry/pink. Vital Signs: 10:30 BP 158 / 97; Pulse 110; Resp 20; Temp 97.7(O); Pulse Ox 100% on R/A; MAP 116 mmHg; tm6 11:50 BP 159 / 64; Pulse 100; Resp 17; Pulse Ox 100% ; bp 13:00 BP 143 / 93; Pulse 104; Resp 20; Pulse Ox 97% ; bp 15:03 BP 154 / 108; Pulse 97; Resp 18; Pulse Ox 98% ; bp ED Course: 10:16 Patient arrived in ED. mg5 10:20 Bruce Lam, MANISHA is Primary Nurse. bp 10:20 Trev Mcdaniel MD is Attending Physician. rt 10:30 Triage completed. tm6 10:30 Arm band placed on right wrist. tm6 10:46 Initial lab(s) drawn, by me, sent to lab. EKG done. Inserted saline lock: 20 gauge in bp right forearm, using aseptic technique. Blood collected. Flushed with 10 mL NS. 11:05 Chest Single View In Process Unspecified. EDMS 11:50 Patient has correct armband on for positive identification. Provided Education on: n/a. bp Client placed on continuous cardiac and pulse oximetry monitoring. NIBP monitoring applied. medical records director on. Pulse ox on. NIBP on. 11:50 Patient maintains SpO2 saturation greater than 95% on room air. bp 13:32 CT Chest For PE Angio In Process Unspecified. EDMS Administered Medications: 10:40 Drug: Aspirin PO Chewable Tablet 324 mg PO once; 81 mg tablets x 4 Route: PO; rs5 16:27 Follow up: Response: No adverse reaction bp 10:40 Drug: Nitroglycerin Sublingual 0.4 mg Sublingual once; every five minute if needed x3 rs5 Route: Sublingual; 16:27 Follow up: Response: No adverse reaction bp Outcome: 16:04 Discharge ordered by . rt 16:27 Patient left the ED. bp Signatures: Dispatcher [employer] EDMS Bruce Lam RN RN bp Trev Mcdaniel MD MD rt Cory Michel, RN RN rs5 Larissa Metcalf mg5 Alondra Willingham RN RN tm6
--- NOTE | 2024-01-24 16:05 | EDPHYS ---
Physician Documentation [facility] Name: Paul Patel Age: 33 yrs Sex: Male : 1990 Arrival Date: 01/24/2024 Time: 10:13 Bed 14 Private MD: ED Physician Trev Mcdaniel HPI: 01/23 13:45 This 33 yrs old Male presents to ER via Ambulatory with complaints of Chest Pain. rt 13:45 Patient presents to the ED with chest pain starting this morning at about 6. Denies rt exertional component. States that it is a heaviness. Denies difficulty breathing. Denies of acute complaints, symptoms are moderate in severity, no other aggravating or alleviating factors.. Historical: - Allergies: 10:30 Morphine; aggressivness; tm6 - PMHx: 10:30 Back pain; Chronic pain; Hypertension; Kidney stones; scoliosis; tm6 - PSHx: 10:30 Cholecystectomy; tm6 - Immunization history:: Client reports having NOT received the Covid vaccine. - Infectious Disease History:: Denies. - Social history:: Smoking status: Patient reports the use of cigarette tobacco products, denies chronic smoking, but will smoke occasionally, Patient reports use of chewing tobacco. Patient uses alcohol, occasionally. - Family history:: not pertinent. ROS: 13:46 Constitutional: Negative for fever, chills, and weight loss, Respiratory: Negative for rt shortness of breath, cough, wheezing, and pleuritic chest pain, Abdomen/GI: Negative for abdominal pain, nausea, vomiting, diarrhea, and constipation, MS/Extremity: Negative for injury and deformity, Skin: Negative for injury, rash, and discoloration, Neuro: Negative for headache, weakness, numbness, tingling, and seizure, 13:46 Cardiovascular: Positive for chest pain, Negative for edema, Exam: 13:46 Constitutional: This is a well developed, well nourished patient who is awake, alert, rt and in no acute distress. Head/Face: Normocephalic, atraumatic. Chest/axilla: Normal chest wall appearance and motion. Nontender with no deformity. No lesions are appreciated. Cardiovascular: Regular rate and rhythm with a normal S1 and S2. No gallops, murmurs, or rubs. Normal PMI, no JVD. No pulse deficits. Respiratory: Lungs have equal breath sounds bilaterally, clear to auscultation and percussion. No rales, rhonchi or wheezes noted. No increased work of breathing, no retractions or nasal flaring. Abdomen/GI: Soft, non-tender, with normal bowel sounds. No distension or tympany. No guarding or rebound. No evidence of tenderness throughout. Skin: Warm, dry with normal turgor. Normal color with no rashes, no lesions, and no evidence of cellulitis. MS/ Extremity: Pulses equal, no cyanosis. Neurovascular intact. Full, normal range of motion. 13:46 ECG was reviewed by the Attending Physician. Vital Signs: 10:30 BP 158 / 97; Pulse 110; Resp 20; Temp 97.7(O); Pulse Ox 100% on R/A; MAP 116 mmHg; tm6 11:50 BP 159 / 64; Pulse 100; Resp 17; Pulse Ox 100% ; bp 13:00 BP 143 / 93; Pulse 104; Resp 20; Pulse Ox 97% ; bp 15:03 BP 154 / 108; Pulse 97; Resp 18; Pulse Ox 98% ; bp MDM: 10:20 Medical Screening Exam initiated rt 17:28 Differential diagnosis: CT, chest wall pain, pulmonary embolus. HEART Score: History: rt Slightly Suspicious (0), ECG: Normal (0), Age: < or = 45 years (0), Risk Factors: 1 or 2 risk factors (1), [Hypertension] Troponin: < or = 1 x Normal Limit (0), Total Score = 1. Data reviewed: vital signs, nurses notes, lab test result(s), EKG, radiologic studies. Consideration of Admission/Observation Escalation of care including admission/observation considered. Low heart score, 2 negative troponins, low suspicion for CT, patient does not require admission at this time.. I considered the following discharge prescriptions or medication management in the emergency department Medications were administered in the Emergency Department. See MAR. Independent interpretation of the following test(s) in the Emergency Department X-Ray: My interpretation is No infiltrate seen on my interpretation of x-ray images. Care significantly affected by the following chronic conditions: Hypertension. Counseling: I had a detailed discussion with the patient and/or guardian regarding the historical points, exam findings, and any diagnostic results supporting the discharge/admit diagnosis, lab results, radiology results, the need for outpatient follow up, to return to the emergency department if symptoms worsen or persist or if there are any questions or concerns that arise at home. Response to treatment: the patient's symptoms have mildly improved after treatment. 01/23 10:53 Order name: Basic Metabolic Panel; Complete Time: 11:13 EDMS 01/23 10:53 Order name: Liver (Hepatic) Function; Complete Time: 11:13 EDMS 01/23 10:53 Order name: Troponin High Sensitivity; Complete Time: 11: EDMS 01/23 10:53 Order name: CBC with Automated Diff; Complete Time: 11:13 EDMS 01/23 13:08 Order name: Troponin High Sensitivity; Complete Time: 16:02 rt 01/23 10:49 Order name: Chest Single View; Complete Time: 11: EDMS 01/23 13:08 Order name: CT Chest For PE Angio; Complete Time: 13:49 rt 01/23 10:25 Order name: Cardiac monitoring; Complete Time: 10:39 rt 01/23 10:25 Order name: EKG - Nurse/Tech; Complete Time: 10:39 rt 01/23 10:25 Order name: IV Saline Lock; Complete Time: 10:46 rt 01/23 10:25 Order name: Labs collected and sent; Complete Time: 10:42 rt 01/23 10:25 Order name: O2 Per Protocol; Complete Time: 10:39 rt 01/23 10:25 Order name: O2 Sat Monitoring; Complete Time: 10:39 rt EC:46 Rate is 110 beats/min. Rhythm is regular, Sinus tachycardia with No ectopy. QRS [place] is rt Normal. DC interval is normal. QRS interval is normal. QT interval is normal. No Q waves. T waves are Normal. No ST changes noted. Interpreted by me. Administered Medications: 10:40 Drug: Aspirin PO Chewable Tablet 324 mg PO once; 81 mg tablets x 4 Route: PO; rs5 16:27 Follow up: Response: No adverse reaction bp 10:40 Drug: Nitroglycerin Sublingual 0.4 mg Sublingual once; every five minute if needed x3 rs5 Route: Sublingual; 16:27 Follow up: Response: No adverse reaction bp Disposition Summary: 01/24/24 16:04 Discharge Ordered Notes: Location: Home rt Problem: new rt Symptoms: have improved rt Condition: Stable rt Diagnosis - Chest pain, unspecified rt Followup: rt - With: Private Physician - When: 2 - 3 days - Reason: Discharge Instructions: - Discharge Summary Sheet rt - Nonspecific Chest Pain, Adult rt Forms: - Medication Reconciliation Form rt - Antibiotic Education rt - Prescription Opioid Use rt - Patient Portal Instructions rt - Leadership Thank You Letter rt Signatures: Dispatcher [employer] EDMS Trev Mcdaniel MD MD rt Cory Michel, RN RN rs5 Alondra Willingham RN RN tm6 Bruce Lam RN bp Corrections: (The following items were deleted from the chart) 10:55 10:55 Chest Single View+RAD.RAD.BRZ ordered. EDMS EDMS 11:45 10:55 BASIC METABOLIC PANEL+C.LAB.BRZ ordered. EDMS EDMS 11:45 10:55 CBC+H.LAB.BRZ ordered. EDMS EDMS 11:45 10:55 HEPATIC FUNCTION+C.LAB.BRZ ordered. EDMS EDMS 11:45 10:55 Troponin High Sensitivity+C.LAB.BRZ ordered. EDMS EDMS 13:47 13:45 Patient presents to the ED with chest pain starting this morning at about 3. rt Denies exertional component.. rt
[2024-01-24 16:41] VITALS: TEMP 97.7
[2024-01-24 16:54] VITALS: BP 154/108; O2SAT 98
--- NOTE | 2024-01-27 15:14 | EKG ---
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
== END 2024-01-24 16:27 | disposition home or self-care (01) ==
LOC: ER 10:13
DX: R07.9 Chest pain, unspecified (principal); I10 Essential (primary) hypertension; F17.210 Nicotine dependence, cigarettes, uncomplicated; Z87.442 Personal history of urinary calculi
CPT/HCPCS: 93005; 85025; 80048; 36415; 80076; 84484 ×2; 71275; 71045; 99284; Q9967